=== PATIENT | male | born 1940 | race Caucasian/White ===

== ENCOUNTER → 2018-03-11 | Outpatient (CLI) | payer MEDICARE ==
[2018-03-11 11:09] LABS: HCT 53.6 % (39.0-53.0); HGB 17.2 gm/dL (13.0-17.5); MCH 29.9 pg (25.0-35.0); MCHC 32.1 g/dL (31.0-37.0); MCV 92.9 fL (80.0-100.0); Mean Platelet Volume 6.6; Platelet Count 205 k/uL (150-450); RBC 5.77 m/uL (4.30-5.90); WBC 5.9 k/uL (3.8-10.6)
[2018-03-11 16:28] LABS: Albumin 4.3 g/dL (3.80-4.90); Albumin/Globulin Ratio 1.79 (1.20-2.10); Anion Gap 8.5 mmol/L (4.00-12.00); Calcium 9.1 mg/dL (8.7-10.3); Carbon Dioxide 27.5 mmol/L (21.6-31.8); Globulin 2.4 g/dL (1.6-3.3); Potassium 4.6 mmol/L (3.5-5.5); Total Bilirubin 1.1 mg/dL (0.2-1.2); Total Protein 6.7 g/dL (6.2-8.2)
== END | disposition home or self-care (01) ==
LOC: LABWHC1 10:12
PROVIDERS: ATTEND Internal Medicine Clinical Cardiac Electrophysiology
DX: I10 Essential (primary) hypertension (principal); I44.7 Left bundle-branch block, unspecified; R00.1 Bradycardia, unspecified; R53.83 Other fatigue
CPT/HCPCS: 36415; 80053; 80061; 84443; 85027

== ENCOUNTER 2018-06-23 08:26 | Day surgery (SDC) | payer MEDICARE ==
[2018-06-20 11:32] VITALS: BMI 25.0
[~2018-06-23 08:26] MED LIST: SODIUM CHLORIDE 0.9% 1,000 ML IV SCH; ceFAZolin IN SWFI 2 GM/20 ML SYRINGE IVP ONE
[2018-06-23 09:32] VITALS: BP 159/82; PULSE 47; RESP 20; TEMP 98
[2018-06-23] MEDS ORDERED: LIDOCAINE 1% INJ 10MG/ML (20 ML MDV) ONE (09:48)
[2018-06-23] MEDS ORDERED: IV FLUID CONTINUATION 400 ML IV ONE (09:50)
[2018-06-23] MEDS ORDERED: LIDOCAINE 1% INJ 10MG/ML (20 ML MDV) SQ ONE (10:03)
--- NOTE | 2018-06-23 10:28 | P.PCN ---
Preoperative Diagnosis: Loop monitor implant Primary physicians: Dr. Byrnes Pie Maker Machine: Dr. Hammer Indication: Palpitations, Sick Sinus Syndrome Patient was brought to the EP lab in a fasting state. Written informed consent was obtained prior to the procedure. The left pectoral area was prepped and draped per protocol. Intravenous antibiotic was administered preoperatively. A subcutaneous Loop monitor was implanted successfully and the wound was closed per protocol. The device was programmed to detect significant olga- arrhythmic and tachy-arrhythmic events, per protocol. Device and programming details: A. fib protocol Patient underwent EP procedure under conscious sedation/moderate sedation, monitoring of the level of consciousness and physiologic parameters including but not limited to vital signs and oxygenation. Patient tolerated the procedure well without any acute complications. Start time: 1001 Stop time: 1011
--- NOTE | 2018-06-23 10:29 | P.PRLE ---
RE: [place] Mike Dear Yared Mr. Mike underwent implantation of loop monitor for evaluation of underlying sick sinus syndrome as well as history of palpitations. If he has any tachycardia or bradycardia arrhythmias I will forward that information to you in the future Thank you for entrusting me with the care of the patient Warm regards Sincerely José Luis Manuel
== END 2018-06-23 11:00 | disposition home or self-care (01) ==
LOC: CATHEP 08:26
PROVIDERS: ATTEND Internal Medicine Clinical Cardiac Electrophysiology
DX: I49.5 Sick sinus syndrome (principal); I44.7 Left bundle-branch block, unspecified; I10 Essential (primary) hypertension; I47.1 Supraventricular tachycardia; Z82.49 Family history of ischemic heart disease and other diseases of the circulatory system; Z79.82 Long term (current) use of aspirin; Z79.899 Other long term (current) drug therapy
CPT/HCPCS: 33285; C1764; J2001; J0690

== ENCOUNTER → 2018-10-26 | Outpatient (CLI) | payer MEDICARE ==
[2018-10-26 17:00] LABS: Chol/HDL Ratio 3.09; LDL Cholesterol,Calculated 79.6 mg/dL (0.0-131.0); VLDL Calculation 16.4 mg/dL (5.00-40.00)
== END | disposition home or self-care (01) ==
LOC: LABWHC1 10:05
PROVIDERS: ATTEND Nurse Practitioner Adult Health
DX: E78.5 Hyperlipidemia, unspecified (principal)
CPT/HCPCS: 36415; 80061

== ENCOUNTER → 2018-12-15 | Outpatient (CLI) | payer MEDICARE ==
[2018-12-15 20:26] LABS: Protein, Total 6.5 g/dL (6.2-8.2)
[2018-12-15 20:44] LABS: C Reactive Protein <0.4 mg/dL (0.0-0.8); Creatine Kinase 82 U/L (35-257)
[2018-12-15 23:04] LABS: Hemoglobin A1C 5.8 % (4.0-6.0)
[2018-12-16 15:26] LABS: Albumin 3.93 g/dL (3.80-4.90); Gamma Globulin 0.88 g/dL (0.70-1.50)
== END | disposition home or self-care (01) ==
LOC: LABWHC1 09:37
PROVIDERS: ATTEND Psychiatry & Neurology Neurology
DX: G62.9 Polyneuropathy, unspecified (principal); R53.1 Weakness
CPT/HCPCS: 36415; 82550; 82607; 82747; 83036; 84165; 84439; 84443; 85652; 86140; 86618

== ENCOUNTER → 2019-01-13 | Outpatient (CLI) | payer MEDICARE ==
--- NOTE | 2019-01-13 10:43 | XR ---
EXAMINATION TYPE: XR tibia fibula RT DATE OF EXAM: 01/13/2019 CLINICAL HISTORY: pain TECHNIQUE: AP and lateral images of the right tibia and fibula are obtained. COMPARISON: None. FINDINGS: There is no acute fracture/dislocation evident. The joint spaces appear within normal rivas its. The overlying soft tissue appears unremarkable. IMPRESSION: There is no acute fracture or dislocation seen. ICD 10 NO FRACTURE, INITIAL EVALUATION
== END | disposition home or self-care (01) ==
LOC: RADXRMAIN 10:14
PROVIDERS: ATTEND Family Medicine
DX: M17.0 Bilateral primary osteoarthritis of knee (principal)

== ENCOUNTER → 2019-02-14 | Outpatient (CLI) | payer MEDICARE | END | disposition home or self-care (01) | LOC: LABWHC1 10:33 | PROVIDERS: ATTEND Psychiatry & Neurology Neurology | DX: G73.3 Myasthenic syndromes in other diseases classified elsewhere (principal); G60.9 Hereditary and idiopathic neuropathy, unspecified; K74.3 Primary biliary cirrhosis | CPT/HCPCS: 36415; 83516; 83519; 84182 ==

== ENCOUNTER → 2019-02-28 | Outpatient (CLI) | payer MEDICARE ==
--- NOTE | 2019-03-01 05:28 | CT ---
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 Coronal/sagittal reconstructions performed. CT DLP: 366.4mGycm. Automatic exposure control utilized for a dose reduction. FINDINGS: Heart normal size without pericardial effusion. Mild coronary artery calcifications are seen. Borderline ectatic ascending aorta 3.6 cm. Conventional arch vessel branching anatomy. Ectatic upper descending thoracic aorta at 3.5 cm. A tiny 5 mm contrast outpouching left laterally from the distal aortic arch, refer to axial image 20, suspected focal plaque ulceration. Mild bilateral gynecomastia. No thoracic lymphadenopathy by CT size criteria. No anterior mediastinal mass or evidence for thymoma. Right apical pleural-parenchymal scarring. Calcified granuloma subpleural region anterior right midlu ng. Prominent dependent atelectasis. No consolidation or pleural effusion. Visualized upper abdomen shows bilateral renal cysts measuring 1.7 cm on the right and 3.0 cm on the left. Bones: Mild to moderate degenerative disc disease throughout with small endplate Schmorl's nodes lowe r thoracic spine. IMPRESSION: 1. No anterior mediastinal mass, thoracic lymphadenopathy, or specific CT findings of thymoma. 2. Ectatic upper descending thoracic aorta at 3.5 cm. There is a tiny 5 mm contrast outpouching left laterally from the distal aortic arch (axial image 20) likely representing an area of focal plaque ul ceration. A tiny early penetrating atherosclerotic ulcer is less likely. Correlate with patient's sym ptoms and follow-up as indicated. 3. Some dependent atelectasis in the lungs. No acute pulmonary process.
== END | disposition home or self-care (01) ==
LOC: RADCTMAIN 16:27
PROVIDERS: ATTEND Psychiatry & Neurology Neurology
DX: J98.11 Atelectasis (principal); I77.810 Thoracic aortic ectasia; Q25.49 Other congenital malformations of aorta; G73.3 Myasthenic syndromes in other diseases classified elsewhere
CPT/HCPCS: 82565; 84520; 71260; 36415; Q9967

== ENCOUNTER 2019-05-03 13:52 | Emergency (ER) | payer MEDICARE ==
--- NOTE | 2019-05-03 14:43 | ED ---
Male Urogenital HPI - General Chief complaint: Urogenital Stated complaint: Blood in urine Time Seen by Provider: 05/03/19 14:16 Source: patient Mode of arrival: ambulatory Limitations: no limitations - History of Present Illness Initial comments: Patient is a 78-year-old male presenting to the emergency Department with complaints of hematuria times today. Patient states he noticed he was urinating more frequently last night and then this morning noticed blood in his urine. Patient states the next time he went to use the restroom he noticed a small amount of blood in his underwear as well. Patient denies any rectal bleeding. Patient does admit to being on Xarelto for A. fib. He denies any fever, chills, abdominal pain. He denies any recent changes in medication. He denies history of UTIs. He has denies kidney disease. He has no other complaints at this time. Upon arrival to the ER, patient's BP is slightly elevated at 179/79, rest of vitals normal. - Related Data Home Medications Medication Instructions Recorded Confirmed Gabapentin [Neurontin] 300 mg PO TID 06/20/18 06/20/18 Rosuvastatin [Crestor] 5 mg PO QAM 06/20/18 06/20/18 amLODIPine [Norvasc] 5 mg PO Q48H 06/20/18 06/20/18 Allergies Allergy/AdvReac Type Severity Reaction Status Date / Time No Known Allergies Allergy Verified 06/20/18 11:14 Review of Systems ROS Statement: Those systems with pertinent positive or pertinent negative responses have been documented in the HPI. ROS Other: All systems not noted in ROS Statement are negative. Past Medical History Past Medical History: Atrial Fibrillation, Neurologic Disorder Additional Past Medical History / Comment(s): arthritic spinal ds, See Dr Manuel's H&P, SOB History of Any Multi-Drug Resistant Organisms: None Reported Past Surgical History: Hernia Repair Additional Past Surgical History / Comment(s): double inguinal hernia repair Past Anesthesia/Blood Transfusion Reactions: No Reported Reaction Past Psychological History: No Psychological Hx Reported Smoking Status: Never smoker Past Alcohol Use History: None Reported Past Drug Use History: None Reported - Past Family History Mother Family Medical History: Myocardial Infarction ([place]) Father Family Medical History: Myocardial Infarction ([place]) General Exam - General Exam Comments Initial Comments: GENERAL: Well-appearing, well-nourished and in no acute distress. HEAD: Atraumatic, normocephalic. EYES: Pupils equal round and reactive to light, extraocular movements intact, sclera anicteric, conjunctiva are normal. ENT: TMs normal, nares patent, oropharynx clear without exudates. Moist mucous membranes. NECK: Normal range of motion, supple without lymphadenopathy or JVD. LUNGS: Breath sounds clear to auscultation bilaterally and equal. No wheezes rales or rhonchi. HEART: Regular rate and rhythm without murmurs, rubs or gallops. ABDOMEN: Soft, nontender, normoactive bowel sounds. No guarding, no rebound. No masses appreciated. : Deferred EXTREMITIES: Normal range of motion, no pitting or edema. No clubbing or cyanosis. NEUROLOGICAL: Normal speech, normal gait. PSYCH: Normal mood, normal affect. SKIN: Warm, Dry, normal turgor, no rashes or lesions noted. Limitations: no limitations Course Vital Signs 05/03/19 05/03/19 13:58 15:30 Temperature 97.8 F 97.9 F Pulse Rate 67 70 Respiratory 19 18 Rate Blood Pressure 179/79 158/84 O2 Sat by Pulse 96 100 Oximetry Medical Decision Making - Medical Decision Making Patient is a 78-year-old male here for hematuria since this morning. He's also having urinary frequency. He is afebrile, no abdominal pain, no rectal bleeding. Urine today does show a large amount of blood, no signs of infection. I discussed with patient and he needs to follow up with urologist. Patient states he RBCs Dr. Snow or assess urologist and prefers to follow-up with him. They will call later on today. He is stable for discharge at this time. Return parameters were discussed with the patient and he verbalized understanding. Patient is in agreement with this plan of care. Case discussed with Dr. Weir. - Lab Data Lab Results 05/03/19 Range/Units 14:30 Urine Color Light Red Urine Appearance Clear (Clear) Urine pH 6.5 (5.0-8.0) Ur Specific [place] 1.016 (1.001-1.035) Urine Protein Trace H (Negative) Urine Glucose (UA) Negative (Negative) Urine Ketones Negative (Negative) Urine Blood Large H (Negative) Urine Nitrite Negative (Negative) Urine Bilirubin Negative (Negative) Urine Urobilinogen <2.0 (<2.0) mg/dL Ur Leukocyte Esterase Small H (Negative) Urine RBC >182 H (0-5) /hpf Urine WBC 5 (0-5) /hpf Urine Mucus Rare H (None) /hpf Disposition Clinical Impression: Hematuria, Urinary frequency Disposition: HOME SELF-CARE Condition: Stable Instructions (If sedation given, give patient instructions): Hematuria (ED) Additional Instructions: Please return to the Emergency Department if symptoms worsen or any other concerns. Follow-up with your urologist as discussed, Dr. Holloway. Please call the office today and schedule an appointment for 1-3 days. Is patient prescribed a controlled substance at d/c from ED?: No Referrals: Yared Byrnes MD [Primary Care Provider] - 1-2 days Juan Jose Holloway MD [STAFF PHYSICIAN] - 1-2 days
[2019-05-03 15:07] LABS: Appearance,Urine Clear (Clear); Bilirubin,Urine Negative (Negative); Blood,Urine Large (Negative); Color,Urine Light Red; Glucose,Urine (UA) Negative (Negative); Ketones,Urine Negative (Negative); Leukocyte Esterase,Urine Small (Negative); Mucus,Urine Rare /hpf; Nitrite,Urine Negative (Negative); PH, Urine 6.5 (5.0-8.0); Protein,Urine Trace (Negative); RBC,Urine >182 /hpf (0-5); Specific Gravity,Urine 1.016 (1.001-1.035); Urobilinogen,Urine <2.0 mg/dL (<2.0); WBC,Urine 5 /hpf (0-5)
[2019-05-03 15:31] VITALS: BP 158/84; PULSE 70; RESP 18; TEMP 97.9
== END 2019-05-03 15:30 | disposition home or self-care (01) ==
LOC: EC 13:52
DX: R31.9 Hematuria, unspecified (principal); R35.0 Frequency of micturition; I48.91 Unspecified atrial fibrillation; Z79.01 Long term (current) use of anticoagulants; Z79.899 Other long term (current) drug therapy
CPT/HCPCS: 81001; 99283

== ENCOUNTER → 2019-05-12 | Outpatient (CLI) | payer MEDICARE ==
--- NOTE | 2019-05-12 14:07 | CT ---
EXAMINATION TYPE: CT abdomen pelvis w con DATE OF EXAM: 05/12/2019 COMPARISON: Renal ultrasound May 09, 2013. MRI lumbar spine March 24, 2017. HISTORY: Gross hematuria. CT DLP: 881.4 mGycm, Automated Exposure Control for Dose Reduction was Utilized. CONTRAST: CT scan of the abdomen and pelvis is performed with oral and with IV Contrast, patient injected with 100 mL of Isovue 300. FINDINGS: LUNG BASES: No significant abnormality is appreciated. LIVER/GB: No significant abnormality is appreciated. PANCREAS: Fairly moderate generalized fat replaced atrophy. SPLEEN: No significant abnormality is seen. ADRENALS: No significant abnormality is seen. KIDNEYS: A few simple-appearing thin-walled cysts scattered throughout both kidneys are redemonstrate d. For reference 3.2 x 2.7 cm thin-walled cyst posteriorly upper to mid pole level left kidney series 7 image 30. There is symmetric cortical medullary uptake and excretion from both kidneys without hyd ronephrosis or renal calculus clearly seen. No intraluminal calculus or suspicious focal mass in the bladder. Mild to borderline moderate concentric wall thickening is nonspecific. BOWEL: Oral contrast reaches level of the mid transverse colon making evaluation of distal colon slig htly suboptimal. No suspicious small or large bowel dilatation. Mild wall thickening near junction of the left and sigmoid colon is nonspecific presumed product of poor distention, mild colitis cannot b e excluded in the appropriate clinical setting. PROSTATE/SEMINAL VESICLES: Markedly enlarged prostate gland consistent with BPH bulging on bladder ba se is redemonstrated. Scattered pelvic phleboliths. LYMPH NODES: No greater than 1cm abdominal or pelvic lymph nodes are appreciated. OSSEOUS STRUCTURES: Moderate to severe disc space narrowing L4-L5 level. Posterior spur disc L2-L3 le jacqueline. OTHER: No significant additional abnormality is seen. IMPRESSION: No renal stones or obvious concerning focal mass to account for symptoms of hematuria. M ild to borderline moderate fairly concentric wall thickening in the bladder presumed product of outle t obstruction related to BPH but may consider cystoscopy to further evaluate based on patient's sympt oms of gross hematuria.
== END | disposition home or self-care (01) ==
LOC: RADCTMAIN 11:31
PROVIDERS: ATTEND Urology
DX: R31.0 Gross hematuria (principal)
CPT/HCPCS: 82565; 84520; 74177; 36415; Q9967

== ENCOUNTER → 2019-10-05 | Outpatient (CLI) | payer MEDICARE ==
--- NOTE | 2019-10-05 16:19 | CONS ---
CONSULTATION DATE OF SERVICE: 10/05/2019 An 79-year-old gentleman who has been evaluated in the Sleep Center for possible obstructive sleep apnea-hypopnea syndrome. HISTORY OF PRESENT ILLNESS/SLEEP WAKE EVALUATION: Patient usual sleep schedule from 11 p.m. to 8 a.m. No problems with falling asleep, although he has TV set in bedroom. According to patient's , he snores and he wakes up from sleep up to 6 times with multiple episodes of nocturia at night. Positive history of palpitations. In the morning, patient wakes up tired, has problems with memory, irritability, may take nap 1 afternoon, usually feel refreshed after nap. Does not seem to be with dreams during nap. No history of hypnagogic hallucinations, sleep paralysis or cataplexy. [place] Sleepiness Scale is 5. PAST MEDICAL HISTORY: Positive for episodes of atrial fibrillation, hypertension, hyperlipidemia, peripheral neuropathy. PAST SURGICAL HISTORY: Hernia repair. MEDICATIONS: Gabapentin, amlodipine, Rosuvastatin, Xarelto, carbidopa - levodopa. SOCIAL HISTORY: Negative for smoking or using alcohol. FAMILY HISTORY: Positive for diabetes, during the sleep, heart problems, arthritis. REVIEW OF SYSTEMS: Multiple awakenings from sleep, episodes of cardiac arrhythmia. PHYSICAL EXAM: gentleman without distress, BP 169/71, HR 60, RR 14, height 5, 10-3/4 inches, weight 185.6 pounds and body mass index 26.0, temperature 98.2, oxygen saturation from 98%. OROPHARYNX: Extremely low position of soft palate. Mallampati IV. NECK: 16 inches in circumference. LUNGS: Clear to percussion and to auscultation. Good air exchange. No wheezing or rhonchi. HEART: S1, S2 regular. No murmurs, gallops, or rubs. ABDOMEN: Soft and nontender. Bowel sounds are present. No organomegaly appreciated. EXTREMITIES: No clubbing or cyanosis. SOLID WASTE LANDFILL TECHNICIAN: Awake, alert, and oriented X3. Cranial nerves 2 to 7 intact. There is no fasciculation or atrophy. noted. No focal deficits observed. IMPRESSION: 1. Snoring, multiple awakenings from sleep with nocturia, extremely low position of soft palate, obstructive sleep apnea-hypopnea syndrome. 2. History of episodes of atrial fibrillation. 3. Hypertension. 4. Hyperlipidemia. 5. History of peripheral neuropathy. 6. Status post tonsillectomy. 7. Status post hernia repair. PLAN: 1. Polysomnography for evaluation of patient's breathing during sleep. 2. CPAP/BiPAP titration if sleep study confirms obstructive sleep apnea-hypopnea syndrome. 3. Preferable position during sleep on the side. 4. No driving if patient feels any sleepiness. 5. I will see patient for follow up visit to explain results of testing and following plan. Thank you very much for referring this patient for consultation. Sincerely, Diomedes Carrasco MD, PhD, FAASM Diplomat of [employer] [employer] [employer] Family Lawyer [facility] [place] MMODL / IJN: [id number] /
== END | disposition home or self-care (01) ==
LOC: SLEEP 15:12
PROVIDERS: ATTEND Internal Medicine
DX: G47.33 Obstructive sleep apnea (adult) (pediatric) (principal); I10 Essential (primary) hypertension; E78.5 Hyperlipidemia, unspecified; Z98.890 Other specified postprocedural states; Z86.79 Personal history of other diseases of the circulatory system
CPT/HCPCS: 99211

== ENCOUNTER → 2019-10-26 | Outpatient (CLI) | payer MEDICARE ==
[2019-10-26 16:40] LABS: African American GFR (CKD) 73.1 (60.0-200.0); BUN/Creat Ratio 14.55 Ratio (12.00-20.00); Calcium 9.3 mg/dL (8.7-10.3); Non-African American GFR(CKD) 63.1 (60.0-200.0); Potassium 4.3 mmol/L (3.5-5.5)
== END | disposition home or self-care (01) ==
LOC: LABWHC1 10:18
PROVIDERS: ATTEND Physician Assistant
DX: I10 Essential (primary) hypertension (principal); R00.1 Bradycardia, unspecified
CPT/HCPCS: 36415; 80048; 84443

== ENCOUNTER → 2020-02-21 | Outpatient (CLI) | payer MEDICARE ==
--- NOTE | 2020-02-21 12:03 | SFUN ---
SLEEP CENTER FOLLOW UP NOTE DATE OF SERVICE: 02/21/2020 This 79-year-old gentleman has been followed in Sleep Center for checking his compliance and clinical response on treatment with CPAP. Recently, patient had polysomnogram and CPAP titration. Polysomnogram showed moderate obstructive sleep apnea-hypopnea syndrome. During titration, respiration normalized. Subsequently, he received his CPAP unit. This is his first visit after he started to use CPAP equipment. The patient is able to use CPAP equipment practically every night, feels better with the machine. Sometimes feel leak from the upper part of the full face Simplus mask in the area of the nose bridge. [place] Sleepiness Scale today is 5. MEDICATIONS: Gabapentin, amlodipine, rosuvastatin, carbidopa levodopa. I checked patient's CPAP unit. CPAP pressure in the range of 5-15, average pressure 8.5, usage 26 out of 30 nights and 23 out of 30 nights for more than 4 hours, average 7.1 hours per night. Leak is 41 L/minute. Apnea-hypopnea index 5.4. PHYSICAL EXAMINATION: GENERAL: Patient in no distress. VITAL SIGNS: BP 153/62, HR 52, RR 16, weight 194, temperature 97.9, oxygen saturation at room air 97% HEENT: PERRLA, EOMI, evaluation of oropharynx showed tongue protrudes midline. NECK: Supple, no JVD. Thyroid is not palpable. LUNGS: Clear to percussion and to auscultation. Good air exchange. No wheezing or rhonchi. HEART: S1, S2, bradycardia. ABDOMEN: Soft and nontender. Bowel sounds are present. No organomegaly appreciated. EXTREMITIES: No clubbing or cyanosis. WEED COOKING OPERATOR: Awake, alert, and oriented X3. Cranial nerves 2 to 7 intact. There is no fasciculation or atrophy. noted. No focal deficits observed. IMPRESSION: 1. Obstructive sleep apnea-hypopnea syndrome in moderate range. Original apnea- hypopnea index 16.7. The patient demonstrated good compliance with treatment, benefitting from treatment. 2. Significant leak from the mask. The patient sometimes feels discomfort related to the leak from the upper area in the bridge of the nose. 3. Hypertension. 4. Hyperlipidemia. 5. History of atrial fibrillation. 6. History of peripheral neuropathy. 7. Status post tonsillectomy. 8. Status post hernia repair. PLAN: 1. Prescription for different style of full face mask, which included nasal pillow part and part which cover the nose. 2. Patient will continue to use PAP equipment every night for the whole night. 3. Sleep hygiene with regular time in bed for at least 7-1/2 to 8 hours. 4. Precautions related to driving. No driving if feeling sleepiness. 5. I will maintain all necessary prescription for PAP supplies including mask, tube, filters. 6. Watching weight. 7. No driving if feeling sleepiness. 8. Follow-up visit in 6 months or earlier if patient has any problems. Thank you very much for allowing me to participate in management of your patient. Sincerely, Diomedes Carrasco MD, PhD, FAASM Diplomat of [employer] Senior Information Security Analyst of [facility] [place] MMODL / CALLY: [id number] /
== END | disposition home or self-care (01) ==
LOC: SLEEP 09:54
PROVIDERS: ATTEND Internal Medicine
DX: G47.33 Obstructive sleep apnea (adult) (pediatric) (principal); I10 Essential (primary) hypertension; E78.5 Hyperlipidemia, unspecified; Z99.89 Dependence on other enabling machines and devices; Z86.79 Personal history of other diseases of the circulatory system; Z86.69 Personal history of other diseases of the nervous system and sense organs; Z90.89 Acquired absence of other organs; Z98.890 Other specified postprocedural states; Z79.899 Other long term (current) drug therapy

== ENCOUNTER → 2020-09-05 | Outpatient (CLI) | payer MEDICARE | END | disposition home or self-care (01) | LOC: LABWHC1 10:40 | PROVIDERS: ATTEND Internal Medicine Clinical Cardiac Electrophysiology | DX: I49.5 Sick sinus syndrome (principal) | CPT/HCPCS: 36415; 84443 ==

== ENCOUNTER → 2020-10-24 | Outpatient (CLI) | payer MEDICARE ==
--- NOTE | 2020-10-24 14:19 | CT ---
EXAMINATION TYPE: CT chest wo con DATE OF EXAM: 10/24/2020 COMPARISON: Chest CT February 28, 2019 HISTORY: Dyspnea. CT DLP: 339.1 mGycm. Automated Exposure Control for Dose Reduction was Utilized. TECHNIQUE: CT scan of the thorax is performed without IV contrast. FINDINGS: LUNGS: Stable mild right greater than left biapical pleural/parenchymal scarring. Persistent 4 mm doron cified subpleural nodule or granuloma anterior right midlung axial image 32. Slightly elevated left hemidiaphragm redemonstrated persistent mild left basilar linear scarring and/or atelectasis. No new focal infiltrates. There is no pleural effusion or pneumothorax seen bilaterally. The tracheobronchi al tree is patent. MEDIASTINUM: Lack of IV contrast is noted to limit evaluation for mediastinal and especially hilar ad enopathy. There are no definitive new greater than 1 cm mediastinal lymph nodes. No cardiomegaly or pericardial effusion is seen. Coronary artery calcification redemonstrated. Overlying anterior chest wall are again seen. OTHER: Small degree of subareolar bilateral gynecomastia again seen. Multilevel spurring in the spine with underlying scoliotic curvature. Partial visualization of thin-walled cyst posteriorly upper kvng e left kidney on current study. IMPRESSION: Mild chronic changes without new acute pulmonary process.
== END | disposition home or self-care (01) ==
LOC: RADCTMAIN 13:55
PROVIDERS: ATTEND Internal Medicine Pulmonary Disease
DX: R06.00 Dyspnea, unspecified (principal)
CPT/HCPCS: 71250

== ENCOUNTER 2021-03-07 10:09 | Inpatient (IN) | payer MEDICARE ==
[2021-02-27 09:54] VITALS: BMI 24.7
--- NOTE | 2021-03-03 09:09 | P.HPIHPCON ---
History of Present Illness H&P Date: 03/03/21 This is an 80-year-old male with a history of BPH. He has history of 106 g prostate. Discussed given the size of his prostate the recommended approach is either a HoLEP or Robotic simple prostatecomy. discussed the risk and benefit of each procedure in detail. He agreed to proceed with a robotic simple prostatectomy. Discussed with him the risk of surgery which includes but not limited to bleeding, infection, injury to nearby organs which includes but not limited to bowel, ureter, rectum, or blood vessels.. Discussed also with him risk from anesthesia which includes but not limited to heart attack, stroke, blood clots. Discussed with him also the risk of persistent retention even with simple prostatectomy. Discussed the risk of erectile dysfunction and urinary incontinence. He understood all the risk and agreed to proceed Consent for Procedure: I have explained the operation/procedure to the patient, including the risks, benefits, side effects, alternative therapies (including not receiving the proposed treatment or service), the likelihood of the patient achieving his/her goals, and potential recuperation problems for the procedure/sedation/analgesia, as well as any blood products, if indicated. I also explained to the patient the risks, benefits and side effects of the alternatives, as well as the risks related to not receiving the proposed procedure, care, treatment, or services. Past Medical History Past Medical History: Atrial Fibrillation, Hyperlipidemia, Hypertension, Neurologic Disorder, Prostate Disorder, Sleep Apnea/CPAP/BIPAP Additional Past Medical History / Comment(s): arthritic spinal disease, supposed to use CPAP, peripheral neuropathy, a-fib for @least 2-3 years, enlarged prostate History of Any Multi-Drug Resistant Organisms: None Reported Past Surgical History: Hernia Repair, Tonsillectomy Additional Past Surgical History / Comment(s): double inguinal hernia repair Past Anesthesia/Blood Transfusion Reactions: No Reported Reaction Smoking Status: Never smoker - Past Family History Mother Family Medical History: Myocardial Infarction ([place]) Father Family Medical History: Myocardial Infarction ([place]) Medications and Allergies Home Medications Medication Instructions Recorded Confirmed Type Gabapentin [Neurontin] 400 mg PO TID 06/20/18 02/27/21 History Rosuvastatin [Crestor] 5 mg PO QAM 06/20/18 02/27/21 History amLODIPine [Norvasc] 5 mg PO DAILY 06/20/18 02/27/21 History Carbidopa-Levodopa 25-100 mg 2 each PO BID 02/27/21 02/27/21 History [Sinemet 25-100] Docusate Sodium [Dok] 100 mg PO DAILY 02/27/21 02/27/21 History Rivaroxaban [Xarelto] 20 mg PO DAILY 02/27/21 02/27/21 History Allergies Allergy/AdvReac Type Severity Reaction Status Date / Time No Known Allergies Allergy Verified 02/27/21 09:54 Surgical - Exam - General no distress, no pain - ENT normal nares, normal mucosa - Respiratory normal expansion, normal respiratory effort - Abdomen Abdomen: soft, non tender - Psychiatric oriented to time, oriented to person, oriented to place Assessment and Plan Assessment: OR for robotic simple prostatectomy
[~2021-03-07 10:09] MED LIST changes: +HEPARIN SODIUM,PORCINE/PF 5,000 UNIT/0.5 ML SYRINGE SQ PRN; +HYDROmorphone 0.5 MG/0.5 ML SYRINGE IVP PRN; +MIDAZOLAM 2 MG/2 ML VIAL IV PRN; -SODIUM CHLORIDE 0.9% 1,000 ML IV SCH; -ceFAZolin IN SWFI 2 GM/20 ML SYRINGE IVP ONE
[2021-03-07] MEDS: LIDOCAINE 1% (10MG/ML) FOR IV START INTRADERMA PRN ×2 (10:36→11:15)
[2021-03-07] MEDS: LACTATED RINGERS 1,000 ML IV SCH ×3 (10:36→11:17)
[2021-03-07] MEDS: DEXAMETHASONE SOD PHOSPHATE 4 MG/ML 1 ML VIAL IV ONE ×2 (10:55→17:31)
[2021-03-07] MEDS: ONDANSETRON 4 MG/2 ML VIAL IVP ONE ×2 (10:55→17:31)
[2021-03-07] MEDS ORDERED: ROPIVACAINE 5 MG/ML 30 ML VIAL ONE (12:01)
[2021-03-07] MEDS ORDERED: SUCCINYLCHOLINE CHLORIDE 100 MG/5 ML SYR IV ONE (12:01)
[2021-03-07] MEDS ORDERED: SODIUM CHLORIDE 0.9% (PF) 10 ML VIAL ONE (12:01)
[2021-03-07] MEDS ORDERED: LIDOCAINE 1% INJ 10MG/ML (20 ML MDV) ONE (12:01)
[2021-03-07] MEDS ORDERED: PROPOFOL 10 MG/ML 20 ML VIAL IV ONE (12:01)
[2021-03-07] MEDS ORDERED: NEOSTIGMINE 1 MG/ML 10 ML VIAL ONE (12:01)
[2021-03-07] MEDS ORDERED: fentaNYL (PF) 50 MCG/ML 2 ML AMP ONE (12:01)
[2021-03-07] MEDS ORDERED: GLYCOPYRROLATE 0.2 MG/ML 2 ML VIAL ONE (12:01)
[2021-03-07] MEDS ORDERED: ROCURONIUM 10 MG/ML (5 ML VIAL) IV ONE ×2 (12:01)
[2021-03-07] MEDS ORDERED: MIDAZOLAM 2 MG/2 ML VIAL ONE (12:01)
[2021-03-07] MEDS ORDERED: BUPIVACAINE (PF) 0.75% 10 ML VIAL SQ ONE (12:50)
[2021-03-07] MEDS ORDERED: LACTATED RINGERS 1,000 ML IV ONE (15:25)
--- NOTE | 2021-03-07 15:50 | P.OP ---
Date of Procedure: 03/07/21 Preoperative Diagnosis: BPH w/Obstruction Postoperative Diagnosis: same Procedure(s) Performed: Robotic simple prostatectomy Implants: none Anesthesia: DESTINY Surgeon: Stone Olivera Fleece Tier #1: Jerman Garg Pathology: other (prostate adenoma) Condition: stable Disposition: PACU Indications for Procedure: This is an 80-year-old male with a history of BPH. He has history of 106 g prostate. Discussed given the size of his prostate the recommended approach is either a HoLEP or Robotic simple prostatecomy. discussed the risk and benefit of each procedure in detail. He agreed to proceed with a robotic simple prostatectomy. Discussed with him the risk of surgery which includes but not limited to bleeding, infection, injury to nearby organs which includes but not limited to bowel, ureter, rectum, or blood vessels.. Discussed also with him risk from anesthesia which includes but not limited to heart attack, stroke, blood clots. Discussed with him also the risk of persistent retention even with simple prostatectomy. Discussed the risk of erectile dysfunction and urinary incontinence. He understood all the risk and agreed to proceed Description of Procedure: After preoperative antibiotics were started, the patient was taken to the operating room. Anesthesia was induced and the patient was placed in a supine position with adequate padding of the pressure points, shoulders, back, legs and arms. He was then prepped and draped in the standard fashion. A critical pause was performed using two patient identifiers. A 16F holt catheter was placed to gravity drainage. A pneumoperitoneum was obtained using a Veress needle, after pneumoperitoneum was obtained a 8 mm camera port was placed. Under direct vision a 8mm robotic ports was placed lateral to each rectus slightly below the camera port. The left iliac fossa 8mm port was placed. The right tourist information assistant right iliac fossa 12mm port and right paramedian 5mm portwere placed. Adhesions were taken along the right and left lower quadrant After the patient was placed in the trendelenberg position, the robot was then docked to the 8mm robotic ports and then each robotic arm and tower was checked in relation to the patient's legs and hands to avoid inadvertent compression. The peritoneal cavity was inspected. Adhesions were taken down along the left lower quadrant An inverted U-shaped incision began laterally to the left medial umbilical ligament and extended high across the midline to the right umbilical ligament. The limbs of the "U" extended to the level of the vasa on both sides. We next developed the preperitoneal space and the space of Retzius. of Cautery was used to dissected the bladder away from the prostate, the incision was made in close proximity to the prostate, and incision was extended laterally and at this point the plane between the adenoma and the surgical capsule is identified. Both ureteral orifices were identified and neither was injured during the dissection . The adenoma was dissected off of the capsule by combination of blunt dissection and minimum cautery. dissection was initially started along the anterior surface and posterior surface of adenoma, and this was carried laterally. Of note the posterior portion of the adenoma was fairly adherent to the capsule. The dissection was carried to the apex, at this point the urethral-prostatic junction was visualized and the prostate was transected at the junction. Prostate adenoma was placed in an endocatch bag . A 9and 9 inch 3-0 V-Lock suture was used to anastomose the urethra and bladder, starting at the 6:00 posterior position. Mucosa was secured in every stitch, to ensure a mucosa to mucosa anastomosis. The stitch was regularly cinched and the anastomosis tightened. . The 20 Fr Holt catheter was advanced, the bladder filled, and the anastomosis was tested. Anastomsis was watertight at 150 mL. balloon was inflated to 10 mL. Hemostatic agents were placed at the apical portion of the prostate The robot was undocked. specimen was extracted from the supraumbilical incision. The periumbilical fascia was closed with 1-0-PDS suture in figure of 8 fashion. All ports were closed with a subcuticular 4-0 monocryl and Dermabond. Sponge, instrument, and needle counts were correct at the end of the case x2. The patient tolerated the surgery well and without complication. He awoke without difficulty and was taken to the recovery room in stable condition
[2021-03-07] MEDS: GABAPENTIN 400 MG CAP PO SCH ×2 (17:32→20:47)
[2021-03-07] MEDS: KETOROLAC 30 MG/ML 1 ML VIAL IVP SCH ×2 (17:32→23:59)
[2021-03-07] MEDS: D5-0.45% NACL WITH KCL 20MEQ/L 1,000 ML IV SCH (18:30)
[2021-03-07] MEDS: HEPARIN SODIUM,PORCINE/PF 5,000 UNIT/0.5 ML SYRINGE SQ SCH (20:00)
[2021-03-07] MEDS: HYDROcodone/APAP 5-325MG 1 EACH TAB PO PRN (20:47)
[2021-03-07] MEDS: CARBIDOPA-LEVODOPA 25-100 MG 1 EACH TAB PO SCH (20:47)
[2021-03-08] MEDS: D5-0.45% NACL WITH KCL 20MEQ/L 1,000 ML IV SCH ×3 (01:34→10:06)
[2021-03-08] MEDS: HYDROcodone/APAP 5-325MG 1 EACH TAB PO PRN ×2 (01:40→10:05)
[2021-03-08] MEDS: HEPARIN SODIUM,PORCINE/PF 5,000 UNIT/0.5 ML SYRINGE SQ SCH ×2 (04:06→11:41)
[2021-03-08] MEDS: KETOROLAC 30 MG/ML 1 ML VIAL IVP SCH ×2 (07:21→11:40)
[2021-03-08 08:02] VITALS: BP 131/66; PULSE 65; RESP 22; TEMP 98.6
[2021-03-08] MEDS ORDERED: amLODIPine 5 MG TAB PO SCH (09:00)
[2021-03-08] MEDS ORDERED: DOCUSATE 100 MG CAP PO SCH (09:00)
[2021-03-08] MEDS ORDERED: ATORVASTATIN 10 MG TAB PO SCH (09:00)
[2021-03-08] MEDS: CARBIDOPA-LEVODOPA 25-100 MG 1 EACH TAB PO SCH (09:13)
[2021-03-08] MEDS: GABAPENTIN 400 MG CAP PO SCH (09:13)
--- NOTE | 2021-03-08 11:06 | P.DS ---
Providers Date of admission: 03/07/21 10:09 Expected date of discharge: 03/08/21 Attending physician: Stone Olivera MD Primary care physician: Yared Byrnes [facility] Course: On the day of admission, the patient underwent an uncomplicated robotic-assisted laparoscopic simple prostatectomy. The perioperative course was uncomplicated. The patient remained afebrile with stable vital signs. On the first postoperative day, his only complaint was minimal incisional discomfort. He denied nausea, vomiting, chest pain, and shortness of breath. He tolerated breakfast. He ambulated twice without difficulty. On examination, the abdomen was soft and non-distended. Incisions were clean and dry. The Wade catheter was draining blood-tinged urine. Procedures: Robotic-assisted laparoscopic simple prostatectomy in 03/07/2021 Patient Condition at Discharge: Good Plan - Discharge Summary Discharge Rx Participant: No New Discharge Prescriptions: New Ciprofloxacin HCl [Cipro] 250 mg PO Q12HR #6 tablet Ketorolac [Toradol] 10 mg PO Q6HR PRN #12 tab PRN Reason: Pain No Action Gabapentin [Neurontin] 400 mg PO TID amLODIPine [Norvasc] 5 mg PO DAILY Rosuvastatin [Crestor] 5 mg PO QAM Carbidopa-Levodopa 25-100 mg [Sinemet 25-100] 2 each PO BID Rivaroxaban [Xarelto] 20 mg PO DAILY Docusate Sodium [Dok] 100 mg PO DAILY Discharge Medication List Gabapentin [Neurontin] 400 mg PO TID 06/20/18 [History] Rosuvastatin [Crestor] 5 mg PO QAM 06/20/18 [History] amLODIPine [Norvasc] 5 mg PO DAILY 06/20/18 [History] Carbidopa-Levodopa 25-100 mg [Sinemet 25-100] 2 each PO BID 02/27/21 [History] Docusate Sodium [Dok] 100 mg PO DAILY 02/27/21 [History] Rivaroxaban [Xarelto] 20 mg PO DAILY 02/27/21 [History] Ciprofloxacin HCl [Cipro] 250 mg PO Q12HR #6 tablet 03/08/21 [Rx] Ketorolac [Toradol] 10 mg PO Q6HR PRN #12 tab 03/08/21 [Rx] Follow up Appointment(s)/Referral(s): Stone Olivera MD [STAFF PHYSICIAN] - 03/17/21 Activity/Diet/Wound Care/Special Instructions: Discharge home with Wade catheter. Instruct patient to use overnight drainage bag as well as urinary leg bag. Okay to shower. Diet as tolerated. No lifting, driving, or strenuous activity. Reassure patient that abdominal wall ecchymosis and penoscrotal swelling are normal. Instruct patient to begin taking antibiotics one day prior to Wade catheter removal. May resume Xarelto in 3 days. Discharge Disposition: HOME SELF-CARE
--- NOTE | 2021-03-08 16:21 | P.ANPRN ---
Procedure Note - Anesthesia - Nerve Block Performed Bilateral Erector Spinae Single Time Out Performed: Yes Date of Procedure: 03/07/21 Procedure Start Time: 11:52 Procedure Stop Time: 11:59 Location of Patient: PreOp Indication: Acute Post-Operative Pain, Requested by Surgeon Sedation Type: Sedate with meaningful contact maintained Preparation: Sterile Prep Position: Supine Needle Types: Pajunk Needle Gauge: 21 Ultrasound used to visualize needle placement: Yes Ultrasound used to observe medication spread: Yes Blood Aspirated: No Pain Paresthesia on Injection Noted: No Resistance on Injection: Normal Image Stored and Saved: Yes Events: Uneventful and Well Tolerated (ropi .5% 15 cc plus normal saline 15cc)
--- NOTE | 2021-04-10 15:20 | CDI ---
Documentation Clarification Form Date: 04/10/2021 03:13:48 PM From: Steven Sotomayor Admit Date: 03/07/2021 10:09:00 AM Patient Name: Denton Mike Visit Number: [id number] Discharge Date: 03/08/2021 12:51:00 PM ATTENTION: The Clinical Documentation Specialists (CDI) and [facility] Coding Staff appreciate your assistance in clarifying documentation. Please respond to the clarification below the line at the bottom and electronically sign. The CDI & [facility] Coding staff will review the response and follow-up if needed. Please note: Queries are made part of the Legal Health Record. If you have any questions, please contact the author of this message via ITS. Dr. 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 Coding guidelines do not allow coding professionals to code based on pathology results; therefore, clarification is requested. History/risk factors: BPH Clinical Indicators: urinary retenton Treatment: Percutaneous laparoscopic excision of prostate Please clarify if you agree with the pathology report diagnosis of [insert result/diagnosis]: [ X] Yes [ ] No [ ] Other (please specify) [ ] Unable to determine MTDD
== END 2021-03-08 12:51 | disposition home or self-care (01) | DRG 716 ==
LOC: 2ORMAIN 10:09 → 4SSUR 16:06
PROVIDERS: ADMIT Urology; ATTEND Urology
PROC: 8E0W4CZ Robotic Assisted Procedure of Trunk Region, Percutaneous Endoscopic Approach (ICD-10-PCS; 2021-03-07)
PROC: 0VB04ZZ Excision of Prostate, Percutaneous Endoscopic Approach (ICD-10-PCS; principal; 2021-03-07 12:00)
DX: C61 Malignant neoplasm of prostate (principal); R31.0 Gross hematuria; Z20.822 Contact with and (suspected) exposure to COVID-19; I10 Essential (primary) hypertension; G47.30 Sleep apnea, unspecified; M17.0 Bilateral primary osteoarthritis of knee
CPT/HCPCS: 64999; 86850; 86900; 86901; 87635; 88307; 88344

== ENCOUNTER 2021-05-10 10:11 | Emergency (ER) | payer MEDICARE ==
--- NOTE | 2021-05-10 12:11 | ED ---
General Adult HPI - General Chief complaint: Urogenital Stated complaint: unable to urinate Time Seen by Provider: 05/10/21 11:47 Source: patient, RN notes reviewed, old records reviewed Mode of arrival: ambulatory Limitations: no limitations - History of Present Illness Initial comments: 80-year-old male 2 months status post laparoscopic prostatectomy presents for evaluation of inability to urinate and hematuria. He states that he saw his urologist yesterday. He has had some intermittent waning since his surgery but had been doing quite well. Yesterday evening he developed more significant hematuria but was still able to urinate. He discontinued his Xarelto which he takes for atrial fibrillation last night. 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 He does have some lower abdominal pain. No vomiting. - Related Data Home Medications Medication Instructions Recorded Confirmed Gabapentin [Neurontin] 400 mg PO TID 06/20/18 03/07/21 Rosuvastatin [Crestor] 5 mg PO QAM 06/20/18 03/07/21 amLODIPine [Norvasc] 5 mg PO DAILY 06/20/18 03/07/21 Carbidopa-Levodopa 25-100 mg 2 each PO BID 02/27/21 03/07/21 [Sinemet 25-100] Docusate Sodium [Dok] 100 mg PO DAILY 02/27/21 03/07/21 Rivaroxaban [Xarelto] 20 mg PO DAILY 02/27/21 03/07/21 Previous Rx's Medication Instructions Recorded Ciprofloxacin HCl [Cipro] 250 mg PO Q12HR #6 tablet 03/08/21 Ketorolac [Toradol] 10 mg PO Q6HR PRN #12 tab 03/08/21 Cephalexin [Keflex] 500 mg PO Q12HR 10 Days #20 cap 05/10/21 Allergies Allergy/AdvReac Type Severity Reaction Status Date / Time No Known Allergies Allergy Verified 05/10/21 10:20 Review of Systems ROS Statement: Those systems with pertinent positive or pertinent negative responses have been documented in the HPI. ROS Other: All systems not noted in ROS Statement are negative. Past Medical History Past Medical History: Atrial Fibrillation, Neurologic Disorder Additional Past Medical History / Comment(s): arthritic spinal ds, See Dr Manuel's H&P, SOB History of Any Multi-Drug Resistant Organisms: None Reported Past Surgical History: Hernia Repair, Prostate Surgery Additional Past Surgical History / Comment(s): double inguinal hernia repair Past Anesthesia/Blood Transfusion Reactions: No Reported Reaction Past Psychological History: No Psychological Hx Reported Smoking Status: Never smoker Past Alcohol Use History: None Reported Past Drug Use History: None Reported - Past Family History Mother Family Medical History: Myocardial Infarction ([place]) Father Family Medical History: Myocardial Infarction ([place]) General Exam Limitations: no limitations General appearance: alert, in no apparent distress Head exam: Present: atraumatic, normocephalic Eye exam: Present: normal appearance, PERRL ENT exam: Present: normal exam Neck exam: Present: normal inspection. Absent: tenderness, meningismus Respiratory exam: Present: normal lung sounds bilaterally. Absent: respiratory distress, wheezes Cardiovascular Exam: Present: regular rate, normal rhythm GI/Abdominal exam: Present: soft, tenderness (Mild suprapubic tenderness). Absent: distended exam: Present: other (Blood at the meatus) Neurological exam: Present: alert, oriented X3, CN II-XII intact. Absent: motor sensory deficit Psychiatric exam: Present: normal affect, normal mood Skin exam: Present: warm, dry, intact. Absent: cyanosis, diaphoretic Course Vital Signs 05/10/21 10:15 Temperature 97.1 F L Pulse Rate 65 Respiratory 18 Rate Blood Pressure 187/84 O2 Sat by Pulse 98 Oximetry Medical Decision Making - Medical Decision Making 80-year-old male presenting with hematuria and urinary retention. Wade catheter is placed without difficulty in the emergency department. Urine is initially body however this does clear while in the emergency department. Urinalysis showing significant amounts of blood which is expected. He has a mild leukocytosis, stable hemoglobin. Feels much better after Wade catheter is placed. He will be started on antibiotics while cultures are pending. He will follow-up with his urologist Dr. Ramon Alan. He lesly hold his Xarelto for 1 more day. - Lab Data Result diagrams: 05/10/21 12:49 05/10/21 12:49 Lab Results 05/10/21 05/10/21 05/10/21 Range/Units 12:08 12:49 12:49 WBC 13.0 H (3.8-10.6) k/uL RBC 4.27 L (4.30-5.90) m/uL Hgb 12.9 L (13.0-17.5) gm/dL Hct 40.3 (39.0-53.0) % MCV 94.2 (80.0-100.0) fL MCH 30.2 (25.0-35.0) pg MCHC 32.1 (31.0-37.0) g/dL RDW 12.6 (11.5-15.5) % Plt Count 307 (150-450) k/uL MPV 7.2 Neutrophils % 88 % Lymphocytes % 6 % Monocytes % 5 % Eosinophils % 1 % Basophils % 0 % Neutrophils # 11.4 H (1.3-7.7) k/uL Lymphocytes # 0.7 L (1.0-4.8) k/uL Monocytes # 0.7 (0-1.0) k/uL Eosinophils # 0.1 (0-0.7) k/uL Basophils # 0.0 (0-0.2) k/uL PT 11.2 (9.0-12.0) sec INR 1.0 (<1.2) APTT 28.0 (22.0-30.0) sec Sodium (137-145) mmol/L Potassium (3.5-5.1) mmol/L Chloride (98-107) mmol/L Carbon Dioxide (22-30) mmol/L Anion Gap mmol/L BUN (9-20) mg/dL Creatinine (0.66-1.25) mg/dL Est GFR (CKD-EPI)AfAm (>60 ml/min/1.73 sqM) Est GFR (CKD-EPI)NonAf (>60 ml/min/1.73 sqM) Glucose (74-99) mg/dL Calcium (8.4-10.2) mg/dL Total Bilirubin (0.2-1.3) mg/dL AST (17-59) U/L ALT (4-49) U/L Alkaline Phosphatase (38-126) U/L Total Protein (6.3-8.2) g/dL Albumin (3.5-5.0) g/dL Urine Color Red Urine Appearance Bloody (Clear) Urine RBC >182 H (0-5) /hpf Urine WBC >182 H (0-5) /hpf Urine WBC Clumps Many H (None) /hpf Urine Bacteria Many H (None) /hpf 05/10/21 Range/Units 12:49 WBC (3.8-10.6) k/uL RBC (4.30-5.90) m/uL Hgb (13.0-17.5) gm/dL Hct (39.0-53.0) % MCV (80.0-100.0) fL MCH (25.0-35.0) pg MCHC (31.0-37.0) g/dL RDW (11.5-15.5) % Plt Count (150-450) k/uL MPV Neutrophils % % Lymphocytes % % Monocytes % % Eosinophils % % Basophils % % Neutrophils # (1.3-7.7) k/uL Lymphocytes # (1.0-4.8) k/uL Monocytes # (0-1.0) k/uL Eosinophils # (0-0.7) k/uL Basophils # (0-0.2) k/uL PT (9.0-12.0) sec INR (<1.2) APTT (22.0-30.0) sec Sodium 131 L (137-145) mmol/L Potassium 4.5 (3.5-5.1) mmol/L Chloride 101 (98-107) mmol/L Carbon Dioxide 26 (22-30) mmol/L Anion Gap 4 mmol/L BUN 12 (9-20) mg/dL Creatinine 0.93 (0.66-1.25) mg/dL Est GFR (CKD-EPI)AfAm 89 (>60 ml/min/1.73 sqM) Est GFR (CKD-EPI)NonAf 77 (>60 ml/min/1.73 sqM) Glucose 100 H (74-99) mg/dL Calcium 8.6 (8.4-10.2) mg/dL Total Bilirubin 0.6 (0.2-1.3) mg/dL AST 16 L (17-59) U/L ALT <6 (4-49) U/L Alkaline Phosphatase 77 (38-126) U/L Total Protein 7.0 (6.3-8.2) g/dL Albumin 3.5 (3.5-5.0) g/dL Urine Color Urine Appearance (Clear) Urine RBC (0-5) /hpf Urine WBC (0-5) /hpf Urine WBC Clumps (None) /hpf Urine Bacteria (None) /hpf Disposition Clinical Impression: Acute retention of urine, Gross hematuria Disposition: HOME SELF-CARE Condition: Good Instructions (If sedation given, give patient instructions): Hematuria (ED), Urinary Retention in Men (ED) Prescriptions: Cephalexin [Keflex] 500 mg PO Q12HR 10 Days #20 cap Is patient prescribed a controlled substance at d/c from ED?: No Referrals: Yared Byrnes MD [Primary Care Provider] - 1-2 days Stone Olivera MD [STAFF PHYSICIAN] - 1-2 days Time of Disposition: 13:43
[2021-05-10] MEDS ORDERED: SODIUM CHLORIDE 0.9% 500 ML 500 ML IV ONE (12:27)
[2021-05-10 12:46] LABS: Appearance,Urine Bloody (Clear); Bacteria,Urine Many /hpf; Color,Urine Red; RBC,Urine >182 /hpf (0-5); WBC,Urine >182 /hpf (0-5)
[2021-05-10 12:57] LABS: Basophils % (A) 0 %; Eosinophils # (A) 0.1 k/uL (0-0.7); Eosinophils % (A) 1 %; HCT 40.3 % (39.0-53.0); HGB 12.9 gm/dL (13.0-17.5); Lymphocytes # (A) 0.7 k/uL (1.0-4.8); Lymphocytes % (A) 6 %; MCH 30.2 pg (25.0-35.0); MCHC 32.1 g/dL (31.0-37.0); MCV 94.2 fL (80.0-100.0); Mean Platelet Volume 7.2; Monocytes # (A) 0.7 k/uL (0-1.0); Monocytes % (A) 5 %; Neutrophils # (A) 11.4 k/uL (1.3-7.7); Neutrophils % (A) 88 %; Platelet Count 307 k/uL (150-450); RBC 4.27 m/uL (4.30-5.90); RDW 12.6 % (11.5-15.5)
[2021-05-10 13:07] LABS: Prothrombin Time 11.2 sec (9.0-12.0)
[2021-05-10 13:09] LABS: ALT <6 U/L (4-49); AST 16 U/L (17-59); African American GFR (CKD) 89 (>60 ml/min/1.73 sqM); Albumin 3.5 g/dL (3.5-5.0); Alkaline Phosphatase 77 U/L (38-126); Anion Gap 4 mmol/L; Blood Urea Nitrogen 12 mg/dL (9-20); Calcium 8.6 mg/dL (8.4-10.2); Carbon Dioxide 26 mmol/L (22-30); Chloride 101 mmol/L (98-107); Glucose 100 mg/dL (74-99); Non-African American GFR(CKD) 77 (>60 ml/min/1.73 sqM); Potassium 4.5 mmol/L (3.5-5.1); Sodium 131 mmol/L (137-145); Total Bilirubin 0.6 mg/dL (0.2-1.3)
[2021-05-10] MEDS ORDERED: cefTRIAXone IN SWFI 1,000 MG/10 ML SYRINGE IVP STA (13:21)
[2021-05-10 14:25] VITALS: BP 128/84; PULSE 78; RESP 16; TEMP 98
== END 2021-05-10 14:24 | disposition home or self-care (01) ==
LOC: EC 10:11
DX: R33.9 Retention of urine, unspecified (principal); R31.0 Gross hematuria; Z84.89 Family history of other specified conditions
CPT/HCPCS: 36415; 80053; 85025; 85610; 85730; 81001; 87086; 99283; 96374; 96361; J0696

== ENCOUNTER 2021-09-02 05:54 | Day surgery (SDC) | payer MEDICARE ==
[~2021-09-02 05:54] MED LIST changes: -HEPARIN SODIUM,PORCINE/PF 5,000 UNIT/0.5 ML SYRINGE SQ PRN; -HYDROmorphone 0.5 MG/0.5 ML SYRINGE IVP PRN; -MIDAZOLAM 2 MG/2 ML VIAL IV PRN; +SODIUM CHLORIDE 0.9% 1,000 ML IV SCH
[2021-09-02] MEDS ORDERED: SODIUM CHLORIDE 0.9% 500 ML 500 ML IV ONE (06:12)
[2021-09-02 06:27] VITALS: RESP 16; TEMP 97.6
[2021-09-02 06:42] LABS: Calcium 8.8 mg/dL (8.4-10.2); Potassium 4.3 mmol/L (3.5-5.1)
[2021-09-02] MEDS ORDERED: PROPOFOL 10 MG/ML 20 ML VIAL IV ONE (07:15)
--- NOTE | 2021-09-02 07:49 | P.HPCAR ---
History of Present Illness This is Dr. Manuel dictating an H/P on this patient The patient was interviewed and examined IMPRESSION / ASSESSMENT: Atrial tachycardia with RVR 140 beats a minute, symptomatic Increasing shortness of breath tiredness and fatigue underlying sick sinus syndrome and IVCD, hence AV natalie blocking drugs were avoided Hypertension Dyslipidemia PLAN: Electrical cardioversion today under conscious sedation Recommend diagnostic EP study and atrial flutter/atrial tachycardia ablation Dermatology opinion regarding the keloid. Consider biopsy before excision However explained to the patient that this is most likely keloid and would likely recur after removal HPI Patient presents with increasing shortness of breath fatigue and tiredness His called last week stating that the patient was not doing well and has become increasingly short of breath and tired He also complained of a thick scar around the incision site for the loop monitor it seems to be increasing in size according to the patient The site feels itchy according to the patient ROS: No fever chills or rigors, no cough, phlegm or expectoration, no nausea, vomiting or diarrhea, no hematuria, dysuria, no musculoskeletal complaints, no strokes or seizures, no skin lesions. EXAMINATION: Afebrile 97.6F pulse rate 150 beats a minute, blood pressure 133/72 mmHg Pulse ox 98% on room air Heart sounds tachycardic Breath sounds equal air entry bilaterally No JVD Thickening of the skin around a small incision for the loop line consistent with keloid However the thickening extends beyond what is visible on the skin REVIEW OF LABS, ECG & MEDICAL DATA Sodium 136, BUN 21 creatinine 1.24 Physical Exam Vitals: Vital Signs Temp Pulse Resp BP Pulse Ox 09/02/21 06:26 97.6 F 150 H 16 133/72 98 Intake and Output 09/01/21 09/02/21 09/02/21 22:59 06:59 14:59 Intake Total 50 100 Balance 50 100 Intake: IV 50 100 Other: Weight 81.647 kg 84.9 kg Past Medical History Past Medical History: Neurologic Disorder Additional Past Medical History / Comment(s): 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 Arthritic spinal disc disease. See Dr Manuel's H&P, SOB. ira's , periph eral NEUROPATHY. History of Any Multi-Drug Resistant Organisms: None Reported Past Surgical History: Hernia Repair, Prostate Surgery Additional Past Surgical History / Comment(s): double inguinal hernia repair Past Anesthesia/Blood Transfusion Reactions: No Reported Reaction Past Psychological History: No Psychological Hx Reported Smoking Status: Never smoker Past Alcohol Use History: None Reported Additional Past Alcohol Use History / Comment(s): was having a drink a day but was told to stop by Dr due to medication Past Drug Use History: None Reported - Past Family History Mother Family Medical History: Myocardial Infarction ([place]) Father Family Medical History: Myocardial Infarction ([place]) Physical Examination Vital Signs Temp Pulse Resp BP Pulse Ox 09/02/21 06:26 97.6 F 150 H 16 133/72 98 Intake and Output 09/01/21 09/02/21 09/02/21 22:59 06:59 14:59 Intake Total 50 100 Balance 50 100 Intake: IV 50 100 Other: Weight 81.647 kg 84.9 kg Results 09/02/21 06:05 Comprehensive Metabolic Panel 09/02/21 Range/Units 06:05 Sodium 136 L (137-145) mmol/L Potassium 4.3 (3.5-5.1) mmol/L Chloride 106 (98-107) mmol/L Carbon Dioxide 20 L (22-30) mmol/L BUN 21 H (9-20) mg/dL Creatinine 1.24 (0.66-1.25) mg/dL Glucose 123 H (74-99) mg/dL Calcium 8.8 (8.4-10.2) mg/dL Current Medications Generic Name Dose Route Start Last Admin Trade Name Freq PRN Reason Stop Dose Admin Sodium Chloride 1,000 mls @ 20 mls/hr 09/02/21 05:44 Saline 0.9% IV 10/02/21 05:45 .Q24H UNIQUE Intake and Output 09/01/21 09/02/21 09/02/21 22:59 06:59 14:59 Intake Total 50 100 Balance 50 100 Intake: IV 50 100 Other: Weight 81.647 kg 84.9 kg 09/02/21 06:05
[2021-09-02 09:42] VITALS: BP 124/81; PULSE 76
== END 2021-09-02 09:17 | disposition home or self-care (01) ==
LOC: CATHEP 05:54
PROVIDERS: ATTEND Internal Medicine Clinical Cardiac Electrophysiology
DX: I48.92 Unspecified atrial flutter (principal); I47.1 Supraventricular tachycardia; I49.5 Sick sinus syndrome; I10 Essential (primary) hypertension; I48.0 Paroxysmal atrial fibrillation; I44.7 Left bundle-branch block, unspecified; G47.33 Obstructive sleep apnea (adult) (pediatric); Z82.49 Family history of ischemic heart disease and other diseases of the circulatory system; Z86.16 Personal history of COVID-19; Z20.822 Contact with and (suspected) exposure to COVID-19; M47.819 Spondylosis without myelopathy or radiculopathy, site unspecified; G62.9 Polyneuropathy, unspecified; Z95.818 Presence of other cardiac implants and grafts; Z87.440 Personal history of urinary (tract) infections; G20 Parkinson's disease; Z79.899 Other long term (current) drug therapy; Z79.01 Long term (current) use of anticoagulants
CPT/HCPCS: 92960; 80048; 84443; 87635; J2704

== ENCOUNTER 2022-04-30 13:33 | Inpatient (IN) | payer MEDICARE ==
--- NOTE | 2022-04-30 14:17 | ED ---
General Adult HPI - General Chief complaint: Weakness Stated complaint: ANGIE,Dizziness Time Seen by Provider: 04/30/22 13:45 Source: patient, RN notes reviewed, old records reviewed Mode of arrival: ambulatory Limitations: no limitations - History of Present Illness Initial comments: This is an 81-year-old male presents emergency Department stating that he has a history of atrial fibrillation. Patient states she was scheduled today to have an ablation. Patient states that the ablation got moved to Wednesday. Patient states over the last week he's been having more more episodes where he is feeling short of breath and feeling his heart race. Patient states last 2 nights she's been unable to sleep because his been occurring all night long and he can't sleep. Patient denies any chest pain. Patient denies any fevers chills or cough. Patient states when it happens he does feel short of breath. Patient has any swelling to the legs or calf tenderness. Patient denies any abdominal pain patient's nausea vomiting diarrhea. Patient denies any li ghtheadedness or dizziness. - Related Data Home Medications Medication Instructions Recorded Confirmed Rivaroxaban [Xarelto] 20 mg PO HS 02/27/21 04/24/22 Carbidopa-Levodopa (New Dose) 1 dose PO BID 04/24/22 Gabapentin [Neurontin] 400 mg PO HS 04/24/22 04/24/22 Lactulose 1 dose PO DIRECTED 04/24/22 Rosuvastatin Calcium 5 mg PO DAILY 04/24/22 04/24/22 amLODIPine [Norvasc] 2.5 mg PO DAILY 04/24/22 04/24/22 Allergies Allergy/AdvReac Type Severity Reaction Status Date / Time No Known Allergies Allergy Verified 04/24/22 15:16 Review of Systems ROS Statement: Those systems with pertinent positive or pertinent negative responses have been documented in the HPI. ROS Other: All systems not noted in ROS Statement are negative. Past Medical History Past Medical History: Atrial Fibrillation, Neurologic Disorder Additional Past Medical History / Comment(s): COVID .HAS LOOP RECORDER. Arthritic spinal disc disease. See Dr Manuel's H&P, SOB. parkinson's , peripheral NEUROPATHY. History of Any Multi-Drug Resistant Organisms: None Reported Past Surgical History: Hernia Repair, Prostate Surgery Additional Past Surgical History / Comment(s): double inguinal hernia repair Past Anesthesia/Blood Transfusion Reactions: No Reported Reaction Past Psychological History: No Psychological Hx Reported Past Alcohol Use History: None Reported - Past Family History Mother Family Medical History: Myocardial Infarction (SD) Father Family Medical History: Myocardial Infarction (SD) General Exam - General Exam Comments Initial Comments: GENERAL: Patient is well-developed and well-nourished. Patient is nontoxic and well- hydrated and is in no acute distress. ENT: Neck is soft and supple. No significant lymphadenopathy is noted. Oropharynx is clear. Moist mucous membranes. Neck has full range of motion without eliciting any pain. EYES: The sclera were anicteric and conjunctiva were pink and moist. Extraocular movements were intact and pupils were equal round and reactive to light. Eyelids were unremarkable. PULMONARY: Unlabored respirations. Good breath sounds bilaterally. No audible rales rhonchi or wheezing was noted. CARDIOVASCULAR: There is a regular rate and rhythm without any murmurs gallops or rubs. ABDOMEN: Soft and nontender with normal bowel sounds. No palpable organomegaly was noted. There is no palpable pulsatile mass. SKIN: Skin is clear with no lesions or rashes and otherwise unremarkable. NEUROLOGIC: Patient is alert and oriented x3. Cranial nerves II through XII are grossly intact. Motor and sensory are also intact. Normal speech, volume and content. Symmetrical smile. MUSCULOSKELETAL: Normal extremities with adequate strength and full range of motion. No lower extremity swelling or edema. No calf tenderness. LYMPHATICS: No significant lymphadenopathy is noted PSYCHIATRIC: Normal psychiatric evaluation. [id number] Limitations: no limitations Course Vital Signs 04/30/22 13:38 Temperature 97 F L Pulse Rate 70 Respiratory 20 Rate Blood Pressure 180/106 O2 Sat by Pulse 97 Oximetry Medical Decision Making - Medical Decision Making EKG was interpreted by myself and shows a sinus rhythm at 65 bpm ME interval 180 QRSs 172 QT interval 453 QTC is 464. Patient's EKG shows a left bundle branch block. Was pt. sent in by a medical professional or institution (, PA, SPINNING FRAME TENDER, urgent care, hospital, or fpc...) When possible be specific @ -No Did you speak to anyone other than the patient for history (EMS, parent, family, police, friend...)? What history was obtained from this source @ -No Did you review nursing and triage notes (agree or disagree)? Why? @ -I reviewed and agree with nursing and triage notes Were old charts reviewed (outside hosp., previous admission, EMS record, old EKG, old radiological studies, urgent care reports/EKG's, fpc records)? Report findings @ -[place] prior records and prior labs on this patient Differential Diagnosis (chest pain, altered mental status, abdominal pain women, abdominal pain men, vaginal bleeding, weakness, fever, dyspnea, syncope, headache, dizziness, GI bleed, back pain, seizure, CVA, palpatations, mental health, musculoskeletal)? @ -Differential Dyspnea: Coronary syndrome, arrhythmia, tamponade, asthma, COPD, pulmonary embolism, pneumonia, pneumothorax, pulmonary effusion, anaphylaxis, diabetic ketoacidosis, flailed chest, pulmonary contusion, diaphragmatic rupture, anemia, neuromuscular, this is not meant to be an all-inclusive list. EKG interpreted by me (3pts min.). @ -As above X-rays interpreted by me (1pt min.). @ -Chest x-ray shows no acute normalities and it was interpreted by myself CT interpreted by me (1pt min.). @ -None done U/S interpreted by me (1pt. min.). @ -None done What testing was considered but not performed or refused? (CT, X-rays, U/S, labs)? Why? @ -None What meds were considered but not given or refused? Why? @ -None Did you discuss the management of the patient with other professionals (professionals i.e. , PA, SPINNING FRAME TENDER, lab, RT, psych nurse, licensed clinical social worker, site damage prevention technician, teacher, court registry officer, case supervisor)? Give summary @ -I spoke with Dr. Byrnes and he wanted the patient admitted admitted the patient Was smoking cessation discussed for >3mins.? @ -No Was critical care preformed (if so, how long)? @ -No Were there social determinants of health that impacted care today? How? (Homelessness, low income, unemployed, alcoholism, drug addiction, transportation, low edu. Level, literacy, decrease access to med. care, skilled nursing, rehab)? @ -No Was there de-escalation of care discussed even if they declined (Discuss DNR or withdrawal of care, Hospice)? DNR status @ -No What co-morbidities impacted this encounter? (DM, HTN, Smoking, COPD, CAD, Cancer, CVA, ARF, Chemo, Hep., AIDS, mental health diagnosis, sleep apnea, morbid obesity)? @ -Atrial fibrillation Was patient admitted / discharged? Hospital course, mention meds given and route, prescriptions, significant lab abnormalities, going to OR and other pertinent info. @ -Patient was having episodes of significant dyspnea as well as palpitations and was having problems sleeping as of late. I spoke with Dr. Byrnes he agreed to admit the patient and the patient consult cardiology Undiagnosed new problem with uncertain prognosis? @ -No Drug Therapy requiring intensive monitoring for toxicity (Heparin, Nitro, Insulin, Cardizem)? @ -No Were any procedures done? @ -No Diagnosis/symptom? @ -Dyspnea Acute, or Chronic, or Acute on Chronic? @ -Acute Uncomplicated (without systemic symptoms) or Complicated (systemic symptoms)? @ -Uncomplicated Side effects of treatment? @ -No Exacerbation, Progression, or Severe Exacerbation? @ -No Poses a threat to life or bodily function? How? (Chest pain, [place], SD, pneumonia, PE, COPD, DKA, ARF, appy, cholecystitis, CVA, Diverticulitis, Homicidal, Edelmira cidal, threat to staff... and all critical care pts) @ -No Diagnosis/symptom? @ -Palpitations Acute, or Chronic, or Acute on Chronic? @ -Acute Uncomplicated (without systemic symptoms) or Complicated (systemic symptoms)? @ -default Side effects of treatment? @ -none Exacerbation, Progression, or Severe Exacerbation] @ -no Poses a threat to life or bodily function? @ -no - Lab Data Result diagrams: 04/30/22 14:17 Lab Results 04/30/22 Range/Units 14:17 WBC 7.7 (3.8-10.6) k/uL RBC 5.48 (4.30-5.90) m/uL Hgb 17.2 (13.0-17.5) gm/dL Hct 51.4 (39.0-53.0) % MCV 93.9 (80.0-100.0) fL MCH 31.5 (25.0-35.0) pg MCHC 33.5 (31.0-37.0) g/dL RDW 12.5 (11.5-15.5) % Plt Count 197 (150-450) k/uL MPV 7.6 Neutrophils % 80 % Lymphocytes % 11 % Monocytes % 6 % Eosinophils % 1 % Basophils % 1 % Neutrophils # 6.1 (1.3-7.7) k/uL Lymphocytes # 0.9 L (1.0-4.8) k/uL Monocytes # 0.5 (0-1.0) k/uL Eosinophils # 0.1 (0-0.7) k/uL Basophils # 0.0 (0-0.2) k/uL Disposition Clinical Impression: Dyspnea, Palpitations Disposition: ADMITTED IP TO THIS HOSP Referrals: Yared Byrnes MD [Primary Care Provider] - 1-2 days Time of Disposition: 15:19
[2022-04-30 14:30] LABS: Basophils % (A) 1 %; Eosinophils # (A) 0.1 k/uL (0-0.7); Eosinophils % (A) 1 %; HCT 51.4 % (39.0-53.0); HGB 17.2 gm/dL (13.0-17.5); Lymphocytes # (A) 0.9 k/uL (1.0-4.8); Lymphocytes % (A) 11 %; MCH 31.5 pg (25.0-35.0); MCHC 33.5 g/dL (31.0-37.0); MCV 93.9 fL (80.0-100.0); Mean Platelet Volume 7.6; Monocytes # (A) 0.5 k/uL (0-1.0); Monocytes % (A) 6 %; Neutrophils # (A) 6.1 k/uL (1.3-7.7); Neutrophils % (A) 80 %; Platelet Count 197 k/uL (150-450); RBC 5.48 m/uL (4.30-5.90); RDW 12.5 % (11.5-15.5); WBC 7.7 k/uL (3.8-10.6)
--- NOTE | 2022-04-30 15:07 | XR ---
EXAMINATION TYPE: XR chest 2V DATE OF EXAM: 04/30/2022 COMPARISON: 03/25/2022 HISTORY: 81-year-old male dysrhythmias, weakness TECHNIQUE: AP and lateral views FINDINGS: Loop recorder device projects over the left side of the heart. Heart upper limits of normal in size. Aorta and pulmonary vasculature within normal limits. Some minimal strandy atelectasis left base. Dis h mid and lower thoracic spine. No consolidation or pleural effusion. IMPRESSION: Chronic changes without acute cardiopulmonary process. Extensive changes of DISH in the thoracic spin e.
[2022-04-30] MEDS ORDERED: NITROGLYCERIN SL TABS 0.4 MG TAB SUBLINGUAL PRN (15:20)
[2022-04-30 15:59] LABS: Partial Thromboplastin Time 27.1 sec (22.0-30.0); Prothrombin Time 10.9 sec (9.0-12.0)
[2022-04-30 16:25] LABS: Albumin 4.6 g/dL (3.5-5.0); Potassium 4.1 mmol/L (3.5-5.1); Total Bilirubin 1.3 mg/dL (0.2-1.3); Total Protein 7.8 g/dL (6.3-8.2)
[2022-05-01] MEDS: amLODIPine 2.5 MG TAB PO SCH (08:30)
[2022-05-01] MEDS: RIVAROXABAN 20 MG TAB PO SCH (08:30)
[2022-05-01] MEDS: ATORVASTATIN 10 MG TAB PO SCH (08:30)
[2022-05-01] MEDS: CARBIDOPA-LEVODOPA ER 50-200MG 1 EACH TABLET.ER PO SCH ×2 (08:30→15:13)
[2022-05-01] MEDS ORDERED: ASPIRIN 325 MG TAB PO SCH (09:00)
--- NOTE | 2022-05-01 09:42 | CA ---
Transthoracic Echo Report Name: Denton Mike Age: 81 Gender: M : 1940 Exam Date: 05/01/2022 08:27 Exam Location: [facility] Ht (in): 72 Wt (lb): 189 Ordering Physician: Adalgisa Barcenas Attending/Referring Phys: [id number], Swapna Rougher [employer] Radha Sarah, RDCS Procedure CPT: Indications: LVF Cardiac Hx: limited study only Technical Quality: Good Contrast 1: Total Dose (mL): Contrast 2: Total Dose (mL): MEASUREMENTS (Male / Female) Normal Values 2D ECHO RV Internal Dim ED PLAX 3.8 cm DOPPLER AV Peak Velocity 131.3 cm/s AV Peak Gradient 6.9 mmHg AV Mean Velocity 85.9 cm/s AV Mean Gradient 3.6 mmHg AV Velocity Time Integral 27.7 cm AI Peak Velocity 397.2 cm/s AI Peak Gradient 63.1 mmHg AI Pressure Half Time 1810.9 ms LVOT Peak Velocity 139.5 cm/s LVOT Peak Gradient 7.8 mmHg TR Peak Velocity 244.5 cm/s TR Peak Gradient 23.9 mmHg Right Ventricular Systolic Press 28.9 mmHg FINDINGS Left Ventricle Left ventricular ejection fraction is estimated at 55-60 %. Normal left ventricular systolic function with no obvious regional wall motion abnormalities. Right Ventricle Normal right ventricular size and function. Right Atrium Left Atrium Mitral Valve Mild mitral regurgitation. Aortic Valve Trileaflet aortic valve. Mild aortic regurgitation. Tricuspid Valve Mild tricuspid regurgitation. Pulmonic Valve Structurally normal pulmonic valve. Pericardium Normal pericardium. No pericardial effusion. Aorta CONCLUSIONS Preserved LV systolic function Asymmetric septal hypertrophy Normal pericardium No significant valvular abnormalities Previewed by: Dr. José Luis Manuel MD (Electronically Signed) Final Date: 01 May 2022 09:41
--- NOTE | 2022-05-01 10:45 | P.CRDCN ---
History of Present Illness Consult date: 05/01/22 Reason for Consult (text): Palpitations, dyspnea History of present illness: History of present illness: This is an 81-year-old male patient of Dr. Manuel with past medical history of typical atrial flutter/atrial fibrillation, atrial tachycardia status post electrical cardioversion, hypertension, left bundle branch block. Patient states he had sudden onset of shortness of breath dizziness feeling tired and fatigued. He states he sometimes has palpitations and when he is laying in bed he can feel that his heart is missing a beat maybe about 4 times per minute. He last took his Xarelto 2 nights ago. Patient is scheduled for ablation on Wednesday with Dr. Perez. He does have history of bradycardia and has not been on a beta olivia because of this. EKG sinus rhythm with left bundle branch block Laboratory studies: CBC unremarkable. INR 1. Troponin negative 2. His sodium 136, potassium 4.1, BUN 17 creatinine 0.92. Blood sugar 106. TSH from March was 1.07. Chest x-ray: Chronic changes without acute cardiac pulmonary process. Home cardiac medications: Amlodipine 2.5 mg daily, Xarelto 20 mg with supper, rosuvastatin 5 mg daily Lexiscan stress test 2018 had fixed defect related to left bundle branch block, no reversible ischemia Echocardiogram 12/2021 revealed EF of 55%, intermediate diastolic dysfunction, moderate left ear H, ascending aortic measuring 3.8 cm, mild/moderate MR, RVSP 40 mmHg Cardioversion 08/2021 for atrial tachycardia Limited echocardiogram 05/01: Preserved LV systolic function. Asymmetrical septal hypertrophy. Normal pericardium. No significant valvular abnormalities. Review Of Systems: At the time of my evaluation: Constitutional: No fever, no chills. No weakness, reports fatigue no lethargy. EENT: No headache. Reports dizziness. Lungs: No shortness of breath, cough, no sputum production. No wheezing. Cardiovascular: No chest pain, no lower extremity edema. Occasional palpi tations. No paroxysmal nocturnal dyspnea. No orthopnea. No lightheadedness or dizziness. No syncopal episodes. Abdominal: No abdominal pain. No nausea, vomiting. No diarrhea. No constipation. No bloody or tarry stools. Genitourinary: No dysuria.. No urinary retention. Musculoskeletal: No myalgias. No muscle weakness, no frequent falls. No back pain. No neck pain. Integumentary: No wounds. Neurologic: No aphasia. No facial droop. No change in mentation. No head injury. No headache. Physical examination: Gen: This is an 81-year-old male. He is resting in bed and appears to be comfortable. No acute distress. VS: reviewed HEENT: Head is atraumatic, normocephalic. Pupils equal, round. Sclerae is anicteric. NECK: Supple. No JVD. LUNGS: Clear to auscultation. No wheezes or rhonchi. No intercostal retractions. HEART: Regular rate and rhythm. Systolic murmur. ABDOMEN: Soft. No tenderness. EXTREMITIES: No pedal edema. No calf tenderness. NEUROLOGICAL: Patient is awake, alert and oriented x3. Assessment: Vague symptoms of fatigue, dizziness shortness of breath possibly related to bradycardia History of A. fib/A flutter scheduled for ablation on Wednesday Hypertension Left bundle branch block Plan: Avoid all AV natalie blocking drugs Continue telemetry monitoring Change Xarelto to a.m. dosing in, patient missed last evening's dose Patient scheduled for ablation on Wednesday. The plan to monitor patient over the weekend regarding arrhythmias including bradycardia which may be causing his symptoms of fatigue and etc. Continue patient's home cardiac medications Further recommendations to follow based upon clinical course Thank you kindly for this consultation. Nurse practitioner note has been reviewed, I agree with documented findings and plan of care. Patient was seen and examined. Past Medical History Past Medical History: Atrial Fibrillation, Neurologic Disorder Additional Past Medical History / Comment(s): COVID .HAS LOOP RECORDER. Arthritic spinal disc disease. See Dr Manuel's H&P, SOB. parkinson's , peripheral NEUROPATHY. History of Any Multi-Drug Resistant Organisms: None Reported Past Surgical History: Hernia Repair, Prostate Surgery Additional Past Surgical History / Comment(s): double inguinal hernia repair Past Anesthesia/Blood Transfusion Reactions: No Reported Reaction Past Psychological History: No Psychological Hx Reported Smoking Status: Never smoker Past Alcohol Use History: None Reported Additional Past Alcohol Use History / Comment(s): was having a drink a day but was told to stop by due to medication Past Drug Use History: None Reported - Past Family History Mother Family Medical History: Myocardial Infarction ([place]) Father Family Medical History: Myocardial Infarction ([place]) Medications and Allergies Home Medications Medication Instructions Recorded Confirmed Type Rivaroxaban [Xarelto] 20 mg PO W/SUPPER 02/27/21 04/30/22 History Rosuvastatin Calcium 5 mg PO DAILY 04/24/22 04/30/22 History amLODIPine [Norvasc] 2.5 mg PO DAILY 04/24/22 04/30/22 History Carbidopa-Levodopa ER 50-200Mg 1 tab PO BID@0800,1300 04/30/22 04/30/22 History [Sinemet CR 50-200 mg] Lactulose 20 gm PO HS 04/30/22 04/30/22 History Allergies Allergy/AdvReac Type Severity Reaction Status Date / Time No Known Allergies Allergy Verified 04/30/22 16:28 Physical Exam Vitals: Vital Signs Temp Pulse Pulse Resp BP BP Pulse Ox 05/01/22 02:03 97.9 F 54 L 18 156/84 98 04/30/22 22:00 97.7 F 62 17 148/83 96 04/30/22 20:18 98.7 F 57 L 16 145/76 96 04/30/22 18:00 65 16 187/95 98 04/30/22 17:00 67 16 156/81 99 04/30/22 16:00 68 18 166/85 97 04/30/22 15:00 67 16 164/90 98 04/30/22 14:31 65 18 155/94 97 04/30/22 13:38 97 F L 70 20 180/106 97 Intake and Output 04/30/22 05/01/22 05/01/22 22:59 06:59 14:59 Other: # Voids 1 1 Weight 85.729 kg Results 04/30/22 14:17 04/30/22 15:30 Cardiac Enzymes 04/30/22 04/30/22 04/30/22 Range/Units 15:30 15:30 18:08 AST 23 (17-59) U/L Troponin I <0.012 <0.012 (0.000-0.034) ng/mL Coagulation 04/30/22 Range/Units 15:30 PT 10.9 (9.0-12.0) sec APTT 27.1 (22.0-30.0) sec CBC 04/30/22 Range/Units 14:17 WBC 7.7 (3.8-10.6) k/uL RBC 5.48 (4.30-5.90) m/uL Hgb 17.2 (13.0-17.5) gm/dL Hct 51.4 (39.0-53.0) % Plt Count 197 (150-450) k/uL Comprehensive Metabolic Panel 04/30/22 Range/Units 15:30 Sodium 136 L (137-145) mmol/L Potassium 4.1 (3.5-5.1) mmol/L Chloride 101 (98-107) mmol/L Carbon Dioxide 24 (22-30) mmol/L BUN 17 (9-20) mg/dL Creatinine 0.92 (0.66-1.25) mg/dL Glucose 106 H (74-99) mg/dL Calcium 9.0 (8.4-10.2) mg/dL AST 23 (17-59) U/L ALT 11 (4-49) U/L Alkaline Phosphatase 64 (38-126) U/L Total Protein 7.8 (6.3-8.2) g/dL Albumin 4.6 (3.5-5.0) g/dL Current Medications Generic Name Dose Route Start Last Admin Trade Name Freq PRN Reason Stop Dose Admin Amlodipine Besylate 2.5 mg 05/01/22 09:00 Amlodipine 2.5 Mg Tab PO DAILY [facility] Aspirin 325 mg 05/01/22 09:00 Aspirin 325 Mg Tab PO DAILY [facility] Carbidopa/Levodopa 1 each 05/01/22 08:00 Carbidopa-Levodopa Er 50-200mg 1 Each Tablet.Er PO BID@0800,1300 [facility] Lactulose 20 gm 05/01/22 21:00 Lactulose 200 Gm/300 Ml (From 02/23 Gal Jug) PO HS [facility] Nitroglycerin 0.4 mg 04/30/22 15:20 Nitroglycerin Sl Tabs 0.4 Mg Tab SUBLINGUAL Q5M PRN Chest Pain Non-Formulary Medication 5 mg 05/01/22 09:00 Rosuvastatin Calcium [Rosuvastatin Calcium] PO DAILY [facility] Rivaroxaban 20 mg 05/01/22 17:30 Rivaroxaban 20 Mg Tab PO W/SUPPER [facility] Protocol Intake and Output 04/30/22 05/01/22 05/01/22 22:59 06:59 14:59 Other: # Voids 1 1 Weight 85.729 kg 04/30/22 14:17 04/30/22 15:30
[2022-05-01] MEDS ORDERED: SODIUM CHLORIDE 0.9% 1,000 ML IV SCH (11:30)
[2022-05-01 11:33] LABS: LDL Cholesterol,Calculated 61.9 mg/dL (0.0-131.0); VLDL Calculation 12.58 mg/dL (5.00-40.00)
--- NOTE | 2022-05-01 12:31 | P.HPIM ---
History of Present Illness H&P Date: 05/01/22 This is an 81 year old male with medical history of atrial flutter/atrial fibrillation, parkinson's, peripheral neuropathy. Patient has a loop recorder in place. He has been seeing Dr Manuel outpatient and is waiting to undergo cardiac ablation which is scheduled outpatient Wednesday. Patient does have known history of sinus bradycardia, he is anticoagulated with xarelto which patient last took 2 nights ago. Patient Reports feeling increased dizziness lightheadedness and shortness of breath, as well as fatigue and was directed to come to the for further evaluation by his diesel inspector. He denies palpitations but does report feeling skipped or missed beats. He denies fever/chills. Denies cough. No syncope. No nausea vomiting or diarrhea. Initial EKG reveals sinus rhythm with left bundle branch block heart rate of 65. Patient had a chest xray done showing chronic changes without acute cardiopulmonary process. Extensive changes of diffuse idiopathic skeletal hyperostosis in the thoracic spine. Echocardiogram reveals preserved LV sytolic function, asymmetric septal hypertrophy, normal pericardium, no significant valvular abnormalities. Lab work is essentially unremarkable, troponin negative x 2, sodium of 136, glucose of 106. Lipid panel is unremarkable. Patient is afebrile, heart rate of 65, blood pressure 176/77, 97% on room air. Home medications have been resumed. REVIEW OF SYSTEMS: CONSTITUTIONAL: No fever, no malaise, Reports fatigue. HEENT: No recent visual problems or hearing problems. Denied any sore throat. CARDIOVASCULAR: No chest pain, orthopnea, PND, no palpitations, no syncope. PULMONARY: Reports shortnes of breath, no cough, no hemoptysis. GASTROINTESTINAL: No diarrhea, no nausea, no vomiting, no abdominal pain. NEUROLOGICAL: No headaches, no weakness, no numbness. HEMATOLOGICAL: Denies any bleeding or petechiae. GENITOURINARY: Denies any burning micturition, frequency, or urgency. MUSCULOSKELETAL/RHEUMATOLOGICAL: Denies any joint pain, swelling, or any muscle pain. ENDOCRINE: Denies any polyuria or polydipsia. The rest of the 14-point review of systems is negative. PHYSICAL EXAMINATION: GENERAL: The patient is alert and oriented x3, not in any acute distress. Well developed, well nourished. HEENT: Pupils are round and equally reacting to light. EOMI. No scleral icterus. No conjunctival pallor. Normocephalic, atraumatic. No pharyngeal erythema. No thyromegaly. CARDIOVASCULAR: S1 and S2 present. No murmurs, rubs, or gallops. brdaycardic. regular rate and rhythm. PULMONARY: Chest is clear to auscultation, no wheezing or crackles. ABDOMEN: Soft, nontender, nondistended, normoactive bowel sounds. No palpable organomegaly. MUSCULOSKELETAL: No joint swelling or deformity. EXTREMITIES: No cyanosis, clubbing, or pedal edema. NEUROLOGICAL: Gross neurological examination did not reveal any focal deficits. SKIN: No rashes. Assessment and Plan Assessment Generalized fatigue, shortness of breath and dizziness possibly related to underlying cardiac arrhythmia History of atrial flutter/fibrillation with cardioversion. Implantable loop recorder History of Parkinson's maintained on Sinemet Peripheral neuropathy History of hernia repair Prior daily ETOH use GI prophylaxis DVT prophylaxis patient is anticoagulated with xarelto Plan Resume home medications Avoid AV natalie blocking agents Check TSH Continue Xarelto patient is scheduled for EP study with possible cardioversion on May [address] Manuel Continue telemetry Patient symptomatic secondary to EKG changes patient will be made inpatient, anticipated hospital stay greater than 2 nights. The impression and plan of care has been dictated by Jyoti Peace Nurse Practitioner as directed. Dr. Adelfo MD I have performed a history and physical examination and medical decision making of this patient, discussed the same with the dictator, and agree with the dictators assessment and plan as written, documented as a scribe. Based on total visit time, I have performed more than 50% of this visit. Past Medical History Past Medical History: Atrial Fibrillation, Neurologic Disorder Additional Past Medical History / Comment(s): COVID .HAS LOOP RECORDER. Arthritic spinal disc disease. See Dr Manuel's H&P, SOB. parkinson's , peripheral NEUROPATHY. History of Any Multi-Drug Resistant Organisms: None Reported Past Surgical History: Hernia Repair, Prostate Surgery Additional Past Surgical History / Comment(s): double inguinal hernia repair Past Anesthesia/Blood Transfusion Reactions: No Reported Reaction Past Psychological History: No Psychological Hx Reported Smoking Status: Never smoker Past Alcohol Use History: None Reported Additional Past Alcohol Use History / Comment(s): was having a drink a day but was told to stop by due to medication Past Drug Use History: None Reported - Past Family History Mother Family Medical History: Myocardial Infarction ([place]) Father Family Medical History: Myocardial Infarction ([place]) Medications and Allergies Home Medications Medication Instructions Recorded Confirmed Type Rivaroxaban [Xarelto] 20 mg PO W/SUPPER 02/27/21 04/30/22 History Rosuvastatin Calcium 5 mg PO DAILY 04/24/22 04/30/22 History amLODIPine [Norvasc] 2.5 mg PO DAILY 04/24/22 04/30/22 History Carbidopa-Levodopa ER 50-200Mg 1 tab PO BID@0800,1300 04/30/22 04/30/22 History [Sinemet CR 50-200 mg] Lactulose 20 gm PO HS 04/30/22 04/30/22 History Allergies Allergy/AdvReac Type Severity Reaction Status Date / Time No Known Allergies Allergy Verified 04/30/22 16:28 Physical Exam Vitals: Vital Signs Temp Pulse Pulse Resp BP BP Pulse Ox 05/01/22 08:10 96 05/01/22 07:00 98.2 F 65 16 176/77 97 05/01/22 02:03 97.9 F 54 L 18 156/84 98 04/30/22 22:00 97.7 F 62 17 148/83 96 04/30/22 20:18 98.7 F 57 L 16 145/76 96 04/30/22 18:00 65 16 187/95 98 04/30/22 17:00 67 16 156/81 99 04/30/22 16:00 68 18 166/85 97 04/30/22 15:00 67 16 164/90 98 04/30/22 14:31 65 18 155/94 97 04/30/22 13:38 97 F L 70 20 180/106 97 Intake and Output 04/30/22 05/01/22 05/01/22 22:59 06:59 14:59 Other: # Voids 1 1 Weight 85.729 kg Results CBC & Chem 7: 04/30/22 14:17 04/30/22 15:30 Labs: Abnormal Lab Results - Last 24 Hours (Table) 04/30/22 04/30/22 Range/Units 14:17 15:30 Lymphocytes # 0.9 L (1.0-4.8) k/uL Sodium 136 L (137-145) mmol/L Glucose 106 H (74-99) mg/dL Thrombosis Risk Factor Assmnt - Choose All That Apply Any of the Below Risk Factors Present?: Yes Each Factor Represents 1 point: Obesity (BMI >25) Other Risk Factors: Yes Each Risk Factor Represents 3 Points: Age 75 years or older Other congenital or acquired thrombophilia - If yes, enter type in comment: No Thrombosis Risk Factor Assessment Total Risk Factor Score: 4 Thrombosis Risk Factor Assessment Level: Moderate Risk Assessment and Plan Time with Patient: Less than 30
[2022-05-01] MEDS ORDERED: RIVAROXABAN 20 MG TAB PO SCH (17:30)
[2022-05-01] MEDS: LACTULOSE 20 GM/30 ML CUP PO SCH (22:03)
[2022-05-02] MEDS ORDERED: NAPROXEN 250 MG TAB PO PRN ×2 (02:22→03:19)
[2022-05-02] MEDS: FAMOTIDINE 20 MG TAB PO SCH (08:38)
[2022-05-02] MEDS: RIVAROXABAN 20 MG TAB PO SCH (08:38)
[2022-05-02] MEDS: CARBIDOPA-LEVODOPA ER 50-200MG 1 EACH TABLET.ER PO SCH ×2 (08:38→13:57)
[2022-05-02] MEDS: amLODIPine 2.5 MG TAB PO SCH (08:38)
[2022-05-02] MEDS: ATORVASTATIN 10 MG TAB PO SCH (08:38)
[2022-05-02] MEDS ORDERED: amLODIPine 2.5 MG TAB PO ONE (10:15)
[2022-05-02] MEDS: DULoxetine HCL 30 MG CAPSULE.DR PO SCH (11:46)
--- NOTE | 2022-05-02 11:54 | P.PN ---
Subjective Progress Note Date: 05/02/22 This is an 81-year-old male patient of Dr. Manuel with past medical history of typical atrial flutter/atrial fibrillation, atrial tachycardia status post electrical cardioversion, hypertension, left bundle branch block. Patient states he had sudden onset of shortness of breath dizziness feeling tired and fatigued. He states he sometimes has palpitations and when he is laying in bed he can feel that his heart is missing a beat maybe about 4 times per minute. He last took his Xarelto 2 nights ago. Patient is scheduled for ablation on Wednesday with Dr. Manuel. He does have history of bradycardia and has not been on a beta olivia because of this. 05/02/2022 Patient was seen and examined resting in bed. He complains of generalized body aches and feeling cold. He apparently was previously on gabapentin for peripheral neuropathy but that's been weaned off and he has been having significant symptoms because of this. He is maintaining sinus mechanism. There is no significant bradycardia noted on telemetry. He is anticipating undergoing ablation on Wednesday. Objective - Vital Signs Vital signs: Vital Signs Temp 96.2 F L 05/02/22 07:06 Pulse 53 L 05/02/22 07:06 Resp 18 05/02/22 08:38 BP 184/84 05/02/22 07:06 Pulse Ox 100 05/02/22 07:28 FiO2 Intake & Output 05/01/22 05/02/22 05/02/22 18:59 06:59 18:59 Intake Total 476 Balance 476 Intake: Oral 476 Other: Voiding Method Toilet # Voids 1 2 1 - Exam HEENT: Head is atraumatic, normocephalic. Pupils equal, round. Sclerae is anicteric. NECK: Supple. No JVD. LUNGS: Clear to auscultation. No wheezes or rhonchi. No intercostal retractions. HEART: Regular rate and rhythm. Systolic murmur. ABDOMEN: Soft. No tenderness. EXTREMITIES: No pedal edema. No calf tenderness. NEUROLOGICAL: Patient is awake, alert and oriented x3. - Labs CBC & Chem 7: 04/30/22 14:17 04/30/22 15:30 Assessment and Plan Assessment: Vague symptoms of fatigue, dizziness shortness of breath possibly related to bradycardia History of A. fib/A flutter scheduled for ablation on Wednesday Hypertension Left bundle branch block Plan: Avoid all AV natalie blocking drugs. Continue telemetry monitoring, no evidence of significant bradycardia at this time. Patient scheduled for ablation on Wednesday. The plan to monitor patient over the weekend regarding arrhythmias including bradycardia which may be causing his symptoms of fatigue and etc. Increase amlodipine for better blood pressure control. DAYCARE DIRECTOR note has been reviewed, I agree with a documented findings and plan of care. Patient was seen and examined.
[2022-05-02] MEDS ORDERED: lisinopriL 10 MG TAB PO STA (15:39)
[2022-05-02] MEDS ORDERED: LACTULOSE 20 GM/30 ML CUP PO ONE (15:40)
[2022-05-02] MEDS ORDERED: ACETAMINOPHEN TAB 325 MG TAB PO PRN (15:41)
--- NOTE | 2022-05-02 15:48 | P.PN ---
Subjective Progress Note Date: 05/02/22 This is an 81 year old male with medical history of atrial flutter/atrial fibrillation, parkinson's, peripheral neuropathy. Patient has a loop recorder in place. He has been seeing Dr Manuel outpatient and is waiting to undergo cardiac ablation which is scheduled outpatient Wednesday. Patient does have known history of sinus bradycardia, he is anticoagulated with xarelto which patient last took 2 nights ago. Patient Reports feeling increased dizziness lightheadedness and shortness of breath, as well as fatigue and was directed to come to the for further evaluation by his cooker mechanic. He denies palp itations but does report feeling skipped or missed beats. He denies fever/chills. Denies cough. No syncope. No nausea vomiting or diarrhea. Initial EKG reveals sinus rhythm with left bundle branch block heart rate of 65. Patient had a chest xray done showing chronic changes without acute cardiopulmonary process. Extensive changes of diffuse idiopathic skeletal hyperostosis in the thoracic spine. Echocardiogram reveals preserved LV sytolic function, asymmetric septal hypertrophy, normal pericardium, no significant valvular abnormalities. Lab work is essentially unremarkable, troponin negative x 2, sodium of 136, glucose of 106. Lipid panel is unremarkable. Patient is afebrile, heart rate of 65, blood pressure 176/77, 97% on room air. Home medications have been resumed. 05/02/2022 Patient is evaluated today on medical floor. Patient follows with Dr. Byrnes who will resume care on Wednesday. No acute events overnight. Patient continues to report same symptoms of generalized fatigue and shortness of breath as well as feeling cold. He states this is normal for him. Denies any recent illness. He continues to be monitored on telemetry and remains in sinus rhythm. Patient received an extra dose of amlodipine 2.5 mg today and increased to 5 mg started tomorrow. Blood pressure remains elevated at 189 systolic. Review of Systems Constitutional: Reports fatigue, denied any fever. Cardio vascular: denied any chest pain, palpitations Gastrointestinal: denied any nausea, vomiting, diarrhea Pulmonary: Denied any shortness of breath cough Neurologic: Reports generalized muscle aches. All inpatient medications were reviewed and appropriate changes in these medications as dictated in the interval history and assessment and plan. PHYSICAL EXAMINATION: GENERAL: The patient is alert and oriented x3, not in any acute distress. Well developed, well nourished. HEENT: Pupils are round and equally reacting to light. EOMI. No scleral icterus. No conjunctival pallor. Normocephalic, atraumatic. No pharyngeal erythema. No thyromegaly. CARDIOVASCULAR: S1 and S2 present. No murmurs, rubs, or gallops. brdaycardic. regular rate and rhythm. PULMONARY: Chest is clear to auscultation, no wheezing or crackles. ABDOMEN: Soft, nontender, nondistended, normoactive bowel sounds. No palpable organomegaly. MUSCULOSKELETAL: No joint swelling or deformity. EXTREMITIES: No cyanosis, clubbing, or pedal edema. NEUROLOGICAL: Gross neurological examination did not reveal any focal deficits. SKIN: No rashes. Assessment and Plan Assessment Generalized fatigue, shortness of breath and dizziness possibly related to underlying cardiac arrhythmia History of atrial flutter/fibrillation with cardioversion. Hypertension Peripheral neuropathy weaned off gabapentin outpatient and has significant generalized body aches Constipation Implantable loop recorder History of Parkinson's maintained on Sinemet History of hernia repair Prior daily ETOH use GI prophylaxis DVT prophylaxis patient is anticoagulated with xarelto Plan Medication adjusted for blood pressure control Pain management and patient has been started on cymbalta for peripheral neuropathy Avoid AV natalie blocking agents Continue Xarelto patient is scheduled for EP study with possible cardioversion on May [address] Manuel Continue telemetry The impression and plan of care has been dictated by Jyoti Peace, Nurse Practitioner as directed. Dr. Adelfo MD I have performed a history and physical examination and medical decision making of this patient, discussed the same with the dictator, and agree with the dictators assessment and plan as written, documented as a scribe. Based on total visit time, I have performed more than 50% of this visit. Objective - Vital Signs Vital signs: Vital Signs Temp 97.8 F 05/02/22 14:00 Pulse 70 05/02/22 14:00 Resp 17 05/02/22 14:00 BP 189/84 05/02/22 14:00 Pulse Ox 96 05/02/22 14:00 FiO2 Intake & Output 05/01/22 05/02/22 05/02/22 18:59 06:59 18:59 Intake Total 476 Balance 476 Intake: Oral 476 Other: Voiding Method Toilet # Voids 1 2 1 - Labs CBC & Chem 7: 04/30/22 14:17 04/30/22 15:30 Assessment and Plan Time with Patient: Less than 30
[2022-05-02] MEDS: traMADol 50 MG TAB PO PRN (15:59)
[2022-05-02] MEDS: LACTULOSE 20 GM/30 ML CUP PO SCH (22:03)
[2022-05-03] MEDS: DULoxetine HCL 30 MG CAPSULE.DR PO SCH (09:12)
[2022-05-03] MEDS: RIVAROXABAN 20 MG TAB PO SCH (09:12)
[2022-05-03] MEDS: CARBIDOPA-LEVODOPA ER 50-200MG 1 EACH TABLET.ER PO SCH ×2 (09:12→15:12)
[2022-05-03] MEDS: FAMOTIDINE 20 MG TAB PO SCH (09:15)
[2022-05-03] MEDS: amLODIPine 5 MG TAB PO SCH (09:15)
[2022-05-03] MEDS: traMADol 50 MG TAB PO PRN (09:16)
[2022-05-03] MEDS: ATORVASTATIN 10 MG TAB PO SCH (09:16)
[2022-05-03] MEDS ORDERED: NA PHOS,M-B/NA PHOS,DI-BA 133 ML ENEMA RECTAL ONE (12:00)
--- NOTE | 2022-05-03 12:46 | P.PN ---
Subjective Progress Note Date: 05/03/22 This is an 81-year-old male patient of Dr. Manuel with past medical history of typical atrial flutter/atrial fibrillation, atrial tachycardia status post electrical cardioversion, hypertension, left bundle branch block. Patient states he had sudden onset of shortness of breath dizziness feeling tired and fatigued. He states he sometimes has palpitations and when he is laying in bed he can feel that his heart is missing a beat maybe about 4 times per minute. He last took his Xarelto 2 nights ago. Patient is scheduled for ablation on Wednesday with Dr. Manuel. He does have history of bradycardia and has not been on a beta olivia because of this. 05/02/2022 Patient was seen and examined resting in bed. He complains of generalized body aches and feeling cold. He apparently was previously on gabapentin for peripheral neuropathy but that's been weaned off and he has been having significant symptoms because of this. He is maintaining sinus mechanism. There is no significant bradycardia noted on telemetry. He is anticipating undergoing ablation on Wednesday. 05/03/2022 The patient was seen and examined resting comfortably in bed. He continues to complain of episodes of palpitations and dizziness. Telemetry shows very brief episodes of PAT but no sustained arrhythmia and no significant bradycardia. His main complaint today is constipation and primary is addressing this. Objective - Vital Signs Vital signs: Vital Signs Temp 97.8 F 05/03/22 07:10 Pulse 59 L 05/03/22 07:10 Resp 17 05/03/22 09:12 BP 153/68 05/03/22 07:10 Pulse Ox 97 05/03/22 07:10 FiO2 Intake & Output 05/02/22 05/03/22 05/03/22 17:59 06:59 18:59 Other: Voiding Method Toilet # Voids - Exam HEENT: Head is atraumatic, normocephalic. Pupils equal, round. Sclerae is anicteric. NECK: Supple. No JVD. LUNGS: Clear to auscultation. No wheezes or rhonchi. No intercostal retractions. HEART: Regular rate and rhythm. Systolic murmur. ABDOMEN: Soft. No tenderness. EXTREMITIES: No pedal edema. No calf tenderness. NEUROLOGICAL: Patient is awake, alert and oriented x3. - Labs CBC & Chem 7: 04/30/22 14:17 04/30/22 15:30 Assessment and Plan Assessment: Vague symptoms of fatigue, dizziness shortness of breath possibly related to bradycardia History of A. fib/A flutter scheduled for ablation on Wednesday Hypertension Left bundle branch block Plan: From cardiology's perspective avoid all AV natalie blocking drugs. Continue telemetry monitoring, no evidence of significant bradycardia or sustained arrhythmia at this time. Patient scheduled for ablation on Wednesday. Continue to monitor patient for sustained arrhythmias and bradycardia. TAFFY PULLER note has been reviewed, I agree with a documented findings and plan of care. Patient was seen and examined.
--- NOTE | 2022-05-03 14:52 | P.PN ---
Subjective Progress Note Date: 05/03/22 This is an 81 year old male with medical history of atrial flutter/atrial fibrillation, parkinson's, peripheral neuropathy. Patient has a loop recorder in place. He has been seeing Dr Manuel outpatient and is waiting to undergo cardiac ablation which is scheduled outpatient Wednesday. Patient does have known history of sinus bradycardia, he is anticoagulated with xarelto which patient last took 2 nights ago. Patient Reports feeling increased dizziness lightheadedness and shortness of breath, as well as fatigue and was directed to come to the for further evaluation by his homebound teacher. He denies palp itations but does report feeling skipped or missed beats. He denies fever/chills. Denies cough. No syncope. No nausea vomiting or diarrhea. Initial EKG reveals sinus rhythm with left bundle branch block heart rate of 65. Patient had a chest xray done showing chronic changes without acute cardiopulmonary process. Extensive changes of diffuse idiopathic skeletal hyperostosis in the thoracic spine. Echocardiogram reveals preserved LV sytolic function, asymmetric septal hypertrophy, normal pericardium, no significant valvular abnormalities. Lab work is essentially unremarkable, troponin negative x 2, sodium of 136, glucose of 106. Lipid panel is unremarkable. Patient is afebrile, heart rate of 65, blood pressure 176/77, 97% on room air. Home medications have been resumed. 05/02/2022 Patient is evaluated today on medical floor. Patient follows with Dr. Byrnes who will resume care on Wednesday. No acute events overnight. Patient continues to report same symptoms of generalized fatigue and shortness of breath as well as feeling cold. He states this is normal for him. Denies any recent illness. He continues to be monitored on telemetry and remains in sinus rhythm. Patient received an extra dose of amlodipine 2.5 mg today and increased to 5 mg started tomorrow. Blood pressure remains elevated at 189 systolic. 05/03/2022 Patient evaluated today resting in bed. Main complaint is that he has not been able to have a bowel movement. He received 2 doses of lactulose yesterday and today received a fleet enema. He did have a large BM. He reports no chest pain. He does feel "off" which he states he gets like that when he is unable to have a BM. His blood pressure did improve to 150/60s after receiving a dose of lisinopril. Heart rate remains in the high 50s sinus mechanism. Review of Systems Constitutional: Reports fatigue, denied any fever. Cardio vascular: denied any chest pain, palpitations Gastrointestinal: denied any nausea, vomiting, diarrhea Pulmonary: Denied any shortness of breath cough Neurologic: Reports generalized muscle aches. All inpatient medications were reviewed and appropriate changes in these medications as dictated in the interval history and assessment and plan. PHYSICAL EXAMINATION: GENERAL: The patient is alert and oriented x3, not in any acute distress. Well developed, well nourished. HEENT: Pupils are round and equally reacting to light. EOMI. No scleral icterus. No conjunctival pallor. Normocephalic, atraumatic. No pharyngeal erythema. No thyromegaly. CARDIOVASCULAR: S1 and S2 present. No murmurs, rubs, or gallops. brdaycardic. regular rate and rhythm. PULMONARY: Chest is clear to auscultation, no wheezing or crackles. ABDOMEN: Soft, nontender, nondistended, normoactive bowel sounds. No palpable organomegaly. MUSCULOSKELETAL: No joint swelling or deformity. EXTREMITIES: No cyanosis, clubbing, or pedal edema. NEUROLOGICAL: Gross neurological examination did not reveal any focal deficits. SKIN: No rashes. Assessment and Plan Assessment Generalized fatigue, shortness of breath and dizziness possibly related to underlying cardiac arrhythmia History of atrial flutter/fibrillation with cardioversion. Hypertension Peripheral neuropathy weaned off gabapentin outpatient and has significant generalized body aches Constipation resolved Implantable loop recorder History of Parkinson's maintained on Sinemet History of hernia repair Prior daily ETOH use GI prophylaxis DVT prophylaxis patient is anticoagulated with xarelto Plan Medication adjusted for blood pressure control Pain management and patient has been started on cymbalta for peripheral neuropathy Avoid AV natalie blocking agents Continue Xarelto patient is scheduled for EP study with possible cardioversion on May [address] Manuel Continue telemetry Dr Byrnes to resume care of the patient in the morning. The impression and plan of care has been dictated by Jyoti Peace, Nurse Practitioner as directed. Dr. Adelfo MD I have performed a history and physical examination and medical decision making of this patient, discussed the same with the dictator, and agree with the dictators assessment and plan as written, documented as a scribe. Based on total visit time, I have performed more than 50% of this visit. Objective - Vital Signs Vital signs: Vital Signs Temp 97.8 F 05/03/22 07:10 Pulse 59 L 05/03/22 07:10 Resp 17 05/03/22 07:10 BP 153/68 05/03/22 07:10 Pulse Ox 97 05/03/22 07:10 FiO2 Intake & Output 05/02/22 05/03/22 05/03/22 17:59 06:59 18:59 Other: Voiding Method # Voids - Labs CBC & Chem 7: 04/30/22 14:17 04/30/22 15:30 Assessment and Plan Time with Patient: Less than 30
[2022-05-03] MEDS: LACTULOSE 20 GM/30 ML CUP PO SCH (20:25)
[2022-05-04] MEDS: CARBIDOPA-LEVODOPA ER 50-200MG 1 EACH TABLET.ER PO SCH ×2 (07:37→12:14)
[2022-05-04] MEDS: FAMOTIDINE 20 MG TAB PO SCH (07:38)
[2022-05-04] MEDS: amLODIPine 5 MG TAB PO SCH (07:38)
[2022-05-04] MEDS: ATORVASTATIN 10 MG TAB PO SCH (07:38)
[2022-05-04] MEDS: DULoxetine HCL 30 MG CAPSULE.DR PO SCH (07:38)
[2022-05-04] MEDS: RIVAROXABAN 20 MG TAB PO SCH (07:38)
--- NOTE | 2022-05-04 08:15 | P.PN ---
Subjective Progress Note Date: 05/04/22 Principal diagnosis: Atypical atrial flutter The patient is a pleasant 81-year-old gentleman who sees Dr. Manuel regularly with a past medical history significant for typical atrial flutter as well as atrial tachycardia who presented to the hospital with symptoms of being tired and fatigued and he was found to be bradycardic. He was scheduled as an outpatient to undergo atrial flutter ablation. 2022 The patient was seen and evaluated this morning he stated that his symptoms have somewhat slightly improved. He reports no dizziness or lightheadedness and no presyncope or syncope no symptoms of any chest pain or chest discomfort or shortness of breath. He is on oral anticoagulation which we are going to continue. The pressure remains elevated but the dose of amlodipine was increased yesterday. Beside the blood pressure which was described above the p atient has been maintaining normal sinus mechanism with a regular rhythm and clear breathing sounds bilaterally and no lower exam disease noted Assessment Typical atrial flutter Bradycardia which has improved Plan Continue the current medical regimen Continue avoiding any AV natalie olivia agents Continue oral anticoagulation Procedure was flutter ablation later on today Objective - Vital Signs Vital signs: Vital Signs Temp 98.3 F 05/04/22 07:07 Pulse 64 05/04/22 07:07 Resp 20 05/04/22 07:07 BP 167/81 05/04/22 07:07 Pulse Ox 97 05/04/22 07:07 FiO2 Intake & Output 05/03/22 05/04/22 05/04/22 18:59 06:59 18:59 Other: Voiding Method Toilet Toilet # Voids 3 4 # Bowel Movements 1 - Labs CBC & Chem 7: 04/30/22 14:17 04/30/22 15:30
--- NOTE | 2022-05-04 09:01 | P.PN ---
Subjective Progress Note Date: 05/04/22 Principal diagnosis: Shortness of breath This is an 81-year-old male who presented to the emergency room with complaints of shortness of breath and dizziness. The patient follows with Dr. Manuel as an outpatient and was scheduled to undergo cardiac ablation as an outpatient today. Patient reports he had some constipation over the weekend which has resolved after an enema. Patient seen laying in bed this morning still reporting shortness of breath, mild dizziness, and fatigue. Cardiology has been consulted and patient will still undergo ablation later today. Objective - Vital Signs Vital signs: Vital Signs Temp 98.3 F 05/04/22 07:07 Pulse 64 05/04/22 07:07 Resp 20 05/04/22 07:07 BP 167/81 05/04/22 07:07 Pulse Ox 97 05/04/22 07:07 FiO2 Intake & Output 05/03/22 05/04/22 05/04/22 18:59 06:59 18:59 Other: Voiding Method Toilet Toilet # Voids 3 4 # Bowel Movements 1 - Constitutional General appearance: Present: cooperative, no acute distress - EENT Eyes: Present: EOMI, PERRLA - Neck Neck: Present: normal ROM. Absent: lymphadenopathy, rigidity - Respiratory Respiratory: bilateral: CTA - Cardiovascular Rhythm: regular Heart sounds: normal: S1, S2 - Gastrointestinal General gastrointestinal: Present: soft. Absent: tenderness - Integumentary Integumentary: Present: normal, normal turgor - Psychiatric Psychiatric: Present: A&O x's 3, appropriate affect, intact judgment & insight - Labs CBC & Chem 7: 04/30/22 14:17 04/30/22 15:30 Assessment and Plan (1) Atrial fibrillation and flutter Current Visit: Yes Status: Acute Code(s): I48.91 - UNSPECIFIED ATRIAL FIBRILLATION; I48.92 - UNSPECIFIED ATRIAL FLUTTER SNOMED Code(s): 243607841 (2) Dyspnea Current Visit: Yes Status: Acute Code(s): R06.00 - DYSPNEA, UNSPECIFIED SNOMED Code(s): 723010610 (3) Palpitations Current Visit: Yes Status: Acute Code(s): R00.2 - PALPITATIONS SNOMED Code(s): 53994678 (4) Hypertension Current Visit: Yes Status: Acute Code(s): I10 - ESSENTIAL (PRIMARY) HYPERTENSION SNOMED Code(s): 99832405 (5) Fatigue Current Visit: Yes Status: Acute Code(s): R53.83 - OTHER FATIGUE SNOMED Code(s): 37332322 Plan: Planned for ablation today and await results. Appreciate cardiology consult. Patient seen and evaluated by nurse practitioner, physician in agreement with plan
[2022-05-04] MEDS ORDERED: SUCCINYLCHOLINE CHLORIDE 200 MG/10 ML VIAL IV ONE (15:23)
[2022-05-04] MEDS ORDERED: PROPOFOL 10 MG/ML 20 ML VIAL IV ONE (15:23)
[2022-05-04] MEDS ORDERED: LIDOCAINE 2% INJ 20 MG/ML (2 ML VIAL) ONE (15:23)
[2022-05-04] MEDS ORDERED: IV FLUID CONTINUATION 1,000 ML IV ONE (15:23)
[2022-05-04] MEDS ORDERED: HEPARIN SODIUM,PORCINE 10,000 UNIT/ML 1 ML VIAL ONE (15:23)
[2022-05-04] MEDS ORDERED: fentaNYL (PF) 50 MCG/ML 2 ML AMP ONE (15:23)
[2022-05-04] MEDS ORDERED: LIDOCAINE 1% INJ 10MG/ML (30 ML VIAL-PF) SQ ONE (16:10)
[2022-05-04] MEDS ORDERED: HEPARIN SOD,PORK IN 0.45% NACL 25,000 UNIT in 0.45% NACL 1 250ML.BAG IV ONE (16:10)
[2022-05-04] MEDS ORDERED: HEPARIN SODIUM (1,000 UNIT/ML) 1,000 UNIT in SODIUM CHLORIDE 0.9% 1,000 ML IRRIGATION ONE (16:42)
[2022-05-04] MEDS ORDERED: IOPAMIDOL-370 100ML BTL INJ ONE (18:55)
[2022-05-04] MEDS ORDERED: ACETAMINOPHEN TAB 325 MG TAB PO PRN (19:10)
--- NOTE | 2022-05-04 19:20 | P.EPPROC ---
- EP Procedure Note Electrophysiology Procedure Note: PROCEDURE A. fib ablation Atrial flutter ablation DIAGNOSIS Atrial fibrillation, symptomatic, refractory to therapy Atrial flutter, recurrent and symptomatic with RVR Underlying sick sinus syndrome and sinus bradycardia with left bundle branch block morphology on twelve-lead EKG RESULT No left atrial appendage mass seen on intracardiac echo, small pericardial effusion with mild thickening of the pericardium at the base of the LV Successful A. fib ablation/pulmonary vein isolation of all veins using cryo- ablation Complete entrance block in all 4 veins confirmed No evidence for phrenic nerve injury Esophageal deflection YES, left-sided esophagus Successful atrial flutter ablation with bidirectional block PROCEDURE DETAILS Written informed consent prior to procedure. Patient brought to the EP lab. General anesthesia given. Heparin administered. A city maintained above 300 se conds Both groins prepped and draped per protocol and venous sheaths placed. Esophagus intubated, circa catheter for temperature monitoring an endoscope for possible esophageal deflection. Phrenic nerve monitoring performed. Esophageal temperature monitoring performed. Esophageal deflection performed if circa catheter overlapping with the balloon or circa temperature less than 27.5C Intracardiac echocardiography performed. Pericardium evaluated. Left atrial appendage evaluated. Left atrium evaluated along with pulmonary veins Transseptal catheterization performed under fluoroscopic guidance and intracardiac echo guidance Cryoablation sheath exchanged, balloon catheter along with achieve catheter placed in the left atrium. Pulmonary veins isolated in the following sequence: Left superior pulmonary vein followed by left inferior pulmonary vein, followed by right inferior pulmonary vein and lastly right superior pulmonary vein. Phrenic nerve stimulation along with capture thresholds within the SVC and right superior pulmonary vein to identify the phrenic nerve proximity to the cryo- balloon. Pulmonary veins isolated and confirmed with entrance and exit block. Phrenic nerve integrity confirmed at the end of the procedure Diagnostic catheters for the high right atrium, His bundle, coronary sinus placed. LA and RA pressures recorded RA pressure: 18/12/15 LA pressure: 14/7/10 Diagnostic EP study with coronary sinus pacing and recording Baseline measurements: Sinus cycle length 900 ms, W[place] interval 187 ms, QRS 170 ms and QT interval 442 ms AH 65 and HV 60 ms Sinus recovery times at a pacing cycle length of 600 ms was 1413 ms. Corresponding corrected sinus node recovery time was prolonged AV node Wenckebach block 360 ms Venous sheaths were removed and hemostasis assured with a closure device. Patient extubated and transferred to recovery Increase procedural time During ablation multiple attempts had to be made to move the esophagus a safe distance of the from the pulmonary vein draining cryoablation, to avoid excessive thermal cooling of the esophagus This took extra time and effort to keep the esophagus a safe distance away from the cryoablation balloon. During ablation of the right-sided veins, phrenic nerve stimulation was noted within the right-sided veins. The cryo balloon in close proximity to this location, during standard technique for occlusion of the vein, posing a risk to the phrenic nerve. Therefore the balloon was repositioned around the antrum in a roving fashion to isolate the vein at an extra ostial level to minimize the risk of phrenic nerve injury. The right-sided veins were completely and successfully isolated with this extra effort Atrial flutter ablation Sheaths were placed in the right atrium RF ablation was performed in the cavo tricuspid isthmus. This is defined with intracardiac echo. The patient had a very long cavo tricuspid isthmus Complete line of block was made with the RF ablation catheter and a fixed curve sheath for stability This line was completed anatomically Thereafter this was interrogated with pacing maneuvers. The differential pacing complete bidirectional block was proven PROCEDURES PERFORMED Diagnostic EP study CS pacing and recording Left and right transseptal catheterization Catheter the mapping of the tachycardia Intracardiac echocardiography Pulmonary vein isolation with transseptal and comprehensive EPS, [id number] Atrial flutter ablation
--- NOTE | 2022-05-04 19:26 | P.PRLE ---
RE: Denton Mike Dear Yared Denton Underwent successful pulmonary isolation for management of atrial fibrillation He also underwent atrial flutter ablation for typical atrial flutter with RVR As you know he has sick sinus syndrome with underlying left bundle branch block pattern and is unable to tolerate any AV node blocking drugs He is also quite constipated and is on a small dose of amlodipine If possible one could consider using an angiotensin receptor olivia or AURELIA inhibitor in place of amlodipine although it is a very low-dose and is quite unlikely to be the cause of his constipation He will continue Xarelto 20 mg by mouth daily lifelong for stroke prophylaxis Thank you for entrusting me with the care of the patient Warm regards Sincerely José Luis Manuel
[2022-05-04] MEDS: ENALAPRILAT 1.25 MG/ML 1 ML VIAL IVP ONE ×2 (19:27→19:48)
[2022-05-04] MEDS: LACTULOSE 20 GM/30 ML CUP PO SCH (22:01)
[2022-05-04 23:32] VITALS: RESP 17
[2022-05-05 07:41] VITALS: BP 151/74; PULSE 75; TEMP 97.8
[2022-05-05] MEDS: amLODIPine 5 MG TAB PO SCH (08:19)
[2022-05-05] MEDS: CARBIDOPA-LEVODOPA ER 50-200MG 1 EACH TABLET.ER PO SCH ×2 (08:19→12:35)
[2022-05-05] MEDS: RIVAROXABAN 20 MG TAB PO SCH (08:19)
[2022-05-05] MEDS: DULoxetine HCL 30 MG CAPSULE.DR PO SCH (08:19)
[2022-05-05] MEDS: FAMOTIDINE 20 MG TAB PO SCH (08:19)
[2022-05-05] MEDS: ATORVASTATIN 10 MG TAB PO SCH (08:19)
--- NOTE | 2022-05-05 08:26 | P.PN ---
Subjective Progress Note Date: 05/05/22 Principal diagnosis: Atypical atrial flutter The patient is a pleasant 81-year-old gentleman who sees Dr. Manuel regularly with a past medical history significant for typical atrial flutter as well as atrial tachycardia who presented to the hospital with symptoms of being tired and fatigued and he was found to be bradycardic. He was scheduled as an outpatient to undergo atrial flutter ablation. [id number] The patient was seen and evaluated this morning he stated that his symptoms have somewhat slightly improved. He reports no dizziness or lightheadedness and no presyncope or syncope no symptoms of any chest pain or chest discomfort or shortness of breath. He is on oral anticoagulation which we are going to continue. The pressure remains elevated but the dose of amlodipine was increased yesterday. Beside the blood pressure which was described above the p atient has been maintaining normal sinus mechanism with a regular rhythm and clear breathing sounds bilaterally and no lower exam disease noted May [id number] The patient was seen and evaluated this morning. He underwent atrial fibrillation ablation yesterday with pulmonary vein as ablation using a cryo-and the procedure was successful. He was seen this morning. He is feeling somewhat better. No chest pain. No shortness of breath. The right and left groin are soft and nontender was no bruises. He continues to be on oral anticoagulation. On examination he does have irregular rhythm was clear breathing sounds bilaterally and no lower extremities edema noted. Assessment Typical atrial flutter/paroxysmal atrial fibrillation status post ablation Bradycardia which has improved Plan Continue the current medical regimen Continue oral anticoagulation Objective - Vital Signs Vital signs: Vital Signs Temp 97.8 F 05/05/22 07:02 Pulse 75 05/05/22 07:02 Resp 17 05/05/22 07:02 BP 151/74 05/05/22 07:02 Pulse Ox 97 05/05/22 07:02 FiO2 Intake & Output 05/04/22 05/05/22 05/05/22 18:59 06:59 18:59 Intake Total 934 50 Output Total 1200 Balance 934 -1150 Intake: IV 934 50 Output: Urine 1200 Other: Voiding Method Toilet Indwelling Catheter - Labs CBC & Chem 7: 04/30/22 14:17 04/30/22 15:30
--- NOTE | 2022-05-05 08:32 | P.DS ---
Providers Date of admission: 05/01/22 11:30 Attending physician: aYred Byrnes Consults: 04/30/22 15:21 Consult Physician Urgent Consulting Provider: José Luis Manuel Consult Reason/Comments: Palpitations, dyspnea Do you want consulting provider notified?: Yes Primary care physician: Yared Byrnes [facility] Course: Patient is doing well from a cardiac standpoint. He denies any chest discomfort dizziness lightheadedness palpitations However he has not sat on a chair walk around the room His groins of healed well There is no hematoma no swelling in either groin No bruits No tenderness in the groins On examination heart sounds S1 and S2 are normal Breath sounds are clear Blood pressure is still elevated His dose of amlodipine was increased to 5 mg daily over the weekend He does have Parkinson's disease Impression Typical atrial flutter with RVR status post successful ablation Paroxysmal atrial fibrillation status post cryoablation of the pulmonary veins, complete isolation of the veins Left bundle branch block Hypertension, amlodipine dose increased to 5 mg daily over the weekend Normal cardiac enzymes, normal electrolytes, normal TSH LDL 62, total [place] 121 Plan From an electrophysiology standpoint patient may go home today and follow-up with Dr. Manuel in the next 2 weeks Continue anticoagulation with xarelto 20 mg daily, continue rosuvastatin 5 mg by mouth daily Hypertension management, maximize therapy as needed as an outpatient after 2 weeks Ambulate in the [facility] Plan - Discharge Summary New Discharge Prescriptions: No Action amLODIPine [Norvasc] 2.5 mg PO DAILY Rosuvastatin Calcium 5 mg PO DAILY Lactulose 20 gm PO HS Carbidopa-Levodopa ER 50-200Mg [Sinemet CR 50-200 mg] 1 tab PO BID@0800,1300 Rivaroxaban [Xarelto] 20 mg PO W/SUPPER Discharge Medication List Rivaroxaban [Xarelto] 20 mg PO W/SUPPER 02/27/21 [History] Rosuvastatin Calcium 5 mg PO DAILY 04/24/22 [History] amLODIPine [Norvasc] 2.5 mg PO DAILY 04/24/22 [History] Carbidopa-Levodopa ER 50-200Mg [Sinemet CR 50-200 mg] 1 tab PO BID@0800,1300 04/30/22 [History] Lactulose 20 gm PO HS 04/30/22 [History] Follow up Appointment(s)/Referral(s): Yared Byrnes MD [Primary Care Provider] - 1-2 days
--- NOTE | 2022-05-05 08:55 | P.DS ---
Providers Date of admission: 05/01/22 11:30 Attending physician: Yared Byrnes Consults: 04/30/22 15:21 Consult Physician Urgent Consulting Provider: José Luis Manuel Consult Reason/Comments: Palpitations, dyspnea Do you want consulting provider notified?: Yes Primary care physician: Yared Byrnes - Discharge Diagnosis(es) (1) Atrial fibrillation and flutter Current Visit: Yes Status: Acute (2) Dyspnea Current Visit: Yes Status: Acute (3) Palpitations Current Visit: Yes Status: Acute (4) Hypertension Current Visit: Yes Status: Acute (5) Fatigue Current Visit: Yes Status: Acute Hospital Course: This is an 81-year-old male who was admitted after complaints of shortness of breath and dizziness. Yesterday patient underwent cardiac ablation with Dr. Manuel successfully. He is feeling well today is ready to go home this afternoon. He is tolerating diet and constipation has improved. He will follow up with Dr. Byrnes and [address] Manuel in 2 weeks. Amlodipine was increased to 5 mg by cardiology over the weekend, will continue that at home. Patient seen and evaluated by nurse practitioner, physician in agreement with plan Plan - Discharge Summary New Discharge Prescriptions: New amLODIPine [Norvasc] 5 mg PO DAILY 30 Days #30 tab Continue Rosuvastatin Calcium 5 mg PO DAILY Lactulose 20 gm PO HS Carbidopa-Levodopa ER 50-200Mg [Sinemet CR 50-200 mg] 1 tab PO BID@0800,1300 Rivaroxaban [Xarelto] 20 mg PO W/SUPPER Discontinued amLODIPine [Norvasc] 2.5 mg PO DAILY Discharge Medication List Rivaroxaban [Xarelto] 20 mg PO W/SUPPER 02/27/21 [History] Rosuvastatin Calcium 5 mg PO DAILY 04/24/22 [History] Carbidopa-Levodopa ER 50-200Mg [Sinemet CR 50-200 mg] 1 tab PO BID@0800,1300 04/30/22 [History] Lactulose 20 gm PO HS 04/30/22 [History] amLODIPine [Norvasc] 5 mg PO DAILY 30 Days #30 tab 05/05/22 [Rx] Follow up Appointment(s)/Referral(s): José Luis Manuel MD [STAFF PHYSICIAN] - 2 Weeks Yared Byrnes MD [Primary Care Provider] - 1 Week Discharge Disposition: HOME SELF-CARE
== END 2022-05-05 13:26 | disposition home or self-care (01) | DRG 229 ==
LOC: EC 13:33 → 6NMEDSUR 15:23 → OBSVTOIN 05-01 11:30 → 4SSUR 05-02 07:32
PROVIDERS: ADMIT Family Medicine; ATTEND Family Medicine
PROC: B24BYZZ Ultrasonography of Heart with Aorta using Other Contrast (ICD-10-PCS; 2022-05-04)
PROC: 4A023FZ Measurement of Cardiac Rhythm, Percutaneous Approach (ICD-10-PCS; 2022-05-04)
PROC: 4A0234Z Measurement of Cardiac Electrical Activity, Percutaneous Approach (ICD-10-PCS; 2022-05-04)
PROC: 025 Heart and Great Vessels, Destruction (ICD-10-PCS; principal; 2022-05-04 15:30)
PROC: 02583ZZ Destruction of Conduction Mechanism, Percutaneous Approach (ICD-10-PCS; 2022-05-04 15:30)
DX: I48.4 Atypical atrial flutter (principal); I31.39 Other pericardial effusion (noninflammatory); I42.1 Obstructive hypertrophic cardiomyopathy; I49.5 Sick sinus syndrome; G20 Parkinson's disease; I08.3 Combined rheumatic disorders of mitral, aortic and tricuspid valves; I10 Essential (primary) hypertension; I44.7 Left bundle-branch block, unspecified; I48.0 Paroxysmal atrial fibrillation; I48.3 Typical atrial flutter; K59.00 Constipation, unspecified; R53.83 Other fatigue; G62.9 Polyneuropathy, unspecified; M48.14 Ankylosing hyperostosis [Forestier], thoracic region; F10.91 Alcohol use, unspecified, in remission; I49.9 Cardiac arrhythmia, unspecified; Z95.818 Presence of other cardiac implants and grafts; Z86.16 Personal history of COVID-19; Z79.899 Other long term (current) drug therapy; Z79.01 Long term (current) use of anticoagulants; Z79.891 Long term (current) use of opiate analgesic; Z82.49 Family history of ischemic heart disease and other diseases of the circulatory system
CPT/HCPCS: 36415; 71046; 80053; 80061; 83735; 84443; 84484; 85025; 85610; 85730; 93005; 93308; 93656; 93657; 94760; 99285

== ENCOUNTER 2022-05-06 14:05 | Inpatient (IN) | payer MEDICARE ==
[2022-05-06] MEDS ORDERED: SODIUM CHLORIDE 0.9% 500 ML 500 ML IV STA (15:11)
--- NOTE | 2022-05-06 15:17 | ED ---
General Adult HPI - General Chief complaint: Weakness Stated complaint: Recheck Time Seen by Provider: 05/06/22 14:38 Source: patient, RN notes reviewed Mode of arrival: wheelchair Limitations: no limitations - History of Present Illness Initial comments: Patient is a pleasant 81-year-old male presenting to the emergency Department with general fatigue and weakness. Onset of symptoms was yesterday. Patient did have cardiac ablation done the day before. Patient states he was nothing by mouth all day and procedure was not done to 5 PM. Patient feels he may be dehydrated. No chest pain or dyspnea. No isolated area of weakness. - Related Data Home Medications Medication Instructions Recorded Confirmed Rivaroxaban [Xarelto] 20 mg PO W/SUPPER 02/27/21 05/06/22 Rosuvastatin Calcium 5 mg PO DAILY 04/24/22 05/06/22 Carbidopa-Levodopa ER 50-200Mg 1 tab PO BID@0800,1300 04/30/22 05/06/22 [Sinemet CR 50-200 mg] Lactulose 20 gm PO HS 04/30/22 05/06/22 Previous Rx's Medication Instructions Recorded amLODIPine [Norvasc] 5 mg PO DAILY 30 Days #30 tab 05/05/22 Allergies Allergy/AdvReac Type Severity Reaction Status Date / Time No Known Allergies Allergy Verified 05/06/22 16:39 Review of Systems ROS Statement: Those systems with pertinent positive or pertinent negative responses have been documented in the HPI. ROS Other: All systems not noted in ROS Statement are negative. Constitutional: Denies: fever, chills Eyes: Denies: eye pain ENT: Denies: ear pain Respiratory: Denies: cough, dyspnea Cardiovascular: Denies: chest pain Endocrine: Reports: fatigue Gastrointestinal: Denies: abdominal pain Genitourinary: Denies: urgency Musculoskeletal: Denies: back pain Skin: Denies: rash Neurological: Denies: weakness Past Medical History Past Medical History: Atrial Fibrillation, Neurologic Disorder Additional Past Medical History / Comment(s): COVID .HAS LOOP RECORDER. Arthritic spinal disc disease. See Dr Manuel's H&P, SOB. parkinson's , peripheral NEUROPATHY. History of Any Multi-Drug Resistant Organisms: None Reported Past Surgical History: Cardiac Ablation, Hernia Repair, Prostate Surgery Additional Past Surgical History / Comment(s): double inguinal hernia repair Past Anesthesia/Blood Transfusion Reactions: No Reported Reaction Past Psychological History: No Psychological Hx Reported Smoking Status: Never smoker Past Alcohol Use History: None Reported Past Drug Use History: None Reported - Past Family History Mother Family Medical History: Myocardial Infarction (NM) Father Family Medical History: Myocardial Infarction (NM) General Exam Limitations: no limitations General appearance: alert, in no apparent distress Head exam: Present: atraumatic, normocephalic Eye exam: Present: normal appearance, PERRL, EOMI ENT exam: Present: normal oropharynx Neck exam: Present: normal inspection. Absent: tenderness Respiratory exam: Present: normal lung sounds bilaterally Cardiovascular Exam: Present: regular rate, normal rhythm Expanded Peripheral pulses: 2+: Radial (R), Radial (L), Dorsalis Pedis (R), Dorsalis Pedis (L) GI/Abdominal exam: Present: soft. Absent: tenderness Extremities exam: Present: normal inspection. Absent: pedal edema, calf tenderness Neurological exam: Present: alert, oriented X3, CN II-XII intact. Absent: motor sensory deficit Expanded Neurological exam: Present: protecting the airway Speech: Present: fluid speech Cranial nerves: EOM's Intact: Normal Motor strength exam: RUE: 5, LUE: 5, RLE: 5, LLE: 5 Eye Response: (4) open spontaneously Motor Response: (6) obeys commands Verbal Response: (5) oriented Psychiatric exam: Present: normal affect, normal mood Skin exam: Present: normal color Course Vital Signs 05/06/22 05/06/22 05/06/22 14:21 14:48 14:51 Temperature 98.0 F Pulse Rate 91 86 Pulse Rate [ 85 Cold Meat Cook ] Respiratory 20 16 Rate Blood Pressure 149/88 146/90 O2 Sat by Pulse 99 96 Oximetry 05/06/22 16:51 Temperature Pulse Rate 82 Pulse Rate [ Cold Meat Cook ] Respiratory 17 Rate Blood Pressure 160/88 O2 Sat by Pulse 96 Oximetry EKG Findings - EKG Results: EKG: interpreted by ERMD ((This. Left bundle branch block. Nonspecific ST-T.), sinus rhythm Medical Decision Making - Medical Decision Making Was pt. sent in by a medical professional or institution (, PA, ASSEM[employer], urgent care, hospital, or [facility]...) When possible be specific @ -No Did you speak to anyone other than the patient for history (EMS, parent, family, police, friend...)? What history was obtained from this source @ -Family is present and helps provide history Did you review nursing and triage notes (agree or disagree)? Why? @ -I reviewed and agree with nursing and triage notes Were old charts reviewed (outside hosp., previous admission, EMS record, old EKG, old radiological studies, urgent care reports/EKG's, [facility] records)? Report findings @ -No old charts were reviewed Differential Diagnosis (chest pain, altered mental status, abdominal pain women, abdominal pain men, vaginal bleeding, weakness, fever, dyspnea, syncope, headache, dizziness, GI bleed, back pain, seizure, CVA, palpatations, mental health)? @ -[Differential Weakness: Hypoglycemia, shock, sepsis, hyponatremia, anemia, infection, NM, ETOH, adverse medicine reaction, overdose, stroke, this is not meant to be an all-inclusive list. EKG interpreted by me (3pts min.). @ -As above X-rays interpreted by me (1pt min.). @ -Chest x-ray shows no acute process CT interpreted by me (1pt min.). @ -None done U/S interpreted by me (1pt. min.). @ -None done What testing was considered but not performed or refused? (CT, X-rays, U/S, labs)? Why? @ -None What meds were considered but not given or refused? Why? @ -None Did you discuss the management of the patient with other professionals (professionals i.e. , PA, ASSEM[employer], lab, RT, psych nurse, manager social services, deaf and hard of hearing teacher, teacher, quarantine officer, child welfare caseworker)? Give summary @ -Case was discussed with Dr. Byrnes who will admit his patient. Case also discussed with Dr. Biswas Was smoking cessation discussed for >3mins.? @ -No Was critical care preformed (if so, how long)? @ -No Were there social determinants of health that impacted care today? How? (Homelessness, low income, unemployed, alcoholism, drug addiction, transportation, low edu. Level, literacy, decrease access to med. care, [facility], rehab)? @ -No Was there de-escalation of care discussed even if they declined (Discuss DNR or withdrawal of care, Hospice)? DNR status @ -No What co-morbidities impacted this encounter? (DM, HTN, Smoking, COPD, CAD, Cancer, CVA, ARF, Chemo, Hep., AIDS, mental health diagnosis, sleep apnea, morbid obesity)? @ -None Was patient admitted / discharged? Hospital course, mention meds given and route, prescriptions, significant lab abnormalities, going to OR and other pertinent info. @ -Patient reevaluated. Patient family updated. Patient will be admitted for saline administration secondary to hyponatremia and cardiac observation. Elevated troponin is likely from recent cardiac ablation. Undiagnosed new problem with uncertain prognosis? @ -No Drug Therapy requiring intensive monitoring for toxicity (Heparin, Nitro, Ins ulin, Cardizem)? @ -No Were any procedures done? @ -No Diagnosis/symptom? @ -Hyponatremia Acute, or Chronic, or Acute on Chronic? @ -Acute Uncomplicated (without systemic symptoms) or Complicated (systemic symptoms)? @ -default Side effects of treatment? @ -No Exacerbation, Progression, or Severe Exacerbation? @ -No Poses a threat to life or bodily function? How? (Chest pain, USA, NM, pneumonia, PE, COPD, DKA, ARF, appy, cholecystitis, CVA, Diverticulitis, Homicidal, Suicidal, threat to staff... and all critical care pts) @ -No - Lab Data Result diagrams: 05/06/22 15:18 05/06/22 15:18 Lab Results 05/06/22 05/06/22 05/06/22 Range/Units 15:18 15:18 15:18 WBC 10.2 (3.8-10.6) k/uL RBC 4.93 (4.30-5.90) m/uL Hgb 15.5 (13.0-17.5) gm/dL Hct 44.8 (39.0-53.0) % MCV 91.0 (80.0-100.0) fL MCH 31.4 (25.0-35.0) pg MCHC 34.5 (31.0-37.0) g/dL RDW 12.2 (11.5-15.5) % Plt Count 168 (150-450) k/uL MPV 7.8 Neutrophils % 83 % Lymphocytes % 6 % Monocytes % 8 % Eosinophils % 0 % Basophils % 0 % Neutrophils # 8.5 H (1.3-7.7) k/uL Lymphocytes # 0.7 L (1.0-4.8) k/uL Monocytes # 0.8 (0-1.0) k/uL Eosinophils # 0.0 (0-0.7) k/uL Basophils # 0.0 (0-0.2) k/uL PT 10.1 (9.0-12.0) sec INR 0.9 (<1.2) APTT 26.2 (22.0-30.0) sec Sodium 126 L (137-145) mmol/L Potassium 3.8 (3.5-5.1) mmol/L Chloride 93 L (98-107) mmol/L Carbon Dioxide 24 (22-30) mmol/L Anion Gap 9 mmol/L BUN 18 (9-20) mg/dL Creatinine 0.62 L (0.66-1.25) mg/dL Est GFR (CKD-EPI)AfAm >90 (>60 ml/min/1.73 sqM) Est GFR (CKD-EPI)NonAf >90 (>60 ml/min/1.73 sqM) Glucose 115 H (74-99) mg/dL Plasma Lactic Acid Eric (0.7-2.0) mmol/L Calcium 8.3 L (8.4-10.2) mg/dL Magnesium 1.8 (1.6-2.3) mg/dL Total Bilirubin 1.4 H (0.2-1.3) mg/dL AST 41 (17-59) U/L ALT 9 (4-49) U/L Alkaline Phosphatase 57 (38-126) U/L Troponin I (0.000-0.034) ng/mL NT-Pro-B Natriuret Pep pg/mL Total Protein 6.8 (6.3-8.2) g/dL Albumin 4.0 (3.5-5.0) g/dL TSH 0.856 (0.465-4.680) mIU/L Free T4 1.94 (0.78-2.19) ng/dL Free T3 pg/mL 3.4 (2.8-5.3) pg/ml Influenza Type A (PCR) (Not Detectd) Influenza Type B (PCR) (Not Detectd) RSV (PCR) (Not Detectd) SARS-CoV-2 (PCR) (Not Detectd) 05/06/22 05/06/22 05/06/22 Range/Units 15:18 15:18 15:18 WBC (3.8-10.6) k/uL RBC (4.30-5.90) m/uL Hgb (13.0-17.5) gm/dL Hct (39.0-53.0) % MCV (80.0-100.0) fL MCH (25.0-35.0) pg MCHC (31.0-37.0) g/dL RDW (11.5-15.5) % Plt Count (150-450) k/uL MPV Neutrophils % % Lymphocytes % % Monocytes % % Eosinophils % % Basophils % % Neutrophils # (1.3-7.7) k/uL Lymphocytes # (1.0-4.8) k/uL Monocytes # (0-1.0) k/uL Eosinophils # (0-0.7) k/uL Basophils # (0-0.2) k/uL PT (9.0-12.0) sec INR (<1.2) APTT (22.0-30.0) sec Sodium (137-145) mmol/L Potassium (3.5-5.1) mmol/L Chloride (98-107) mmol/L Carbon Dioxide (22-30) mmol/L Anion Gap mmol/L BUN (9-20) mg/dL Creatinine (0.66-1.25) mg/dL Est GFR (CKD-EPI)AfAm (>60 ml/min/1.73 sqM) Est GFR (CKD-EPI)NonAf (>60 ml/min/1.73 sqM) Glucose (74-99) mg/dL Plasma Lactic Acid Eric 1.2 (0.7-2.0) mmol/L Calcium (8.4-10.2) mg/dL Magnesium (1.6-2.3) mg/dL Total Bilirubin (0.2-1.3) mg/dL AST (17-59) U/L ALT (4-49) U/L Alkaline Phosphatase (38-126) U/L Troponin I (0.000-0.034) ng/mL NT-Pro-B Natriuret Pep 375 pg/mL Total Protein (6.3-8.2) g/dL Albumin (3.5-5.0) g/dL TSH (0.465-4.680) mIU/L Free T4 (0.78-2.19) ng/dL Free T3 pg/mL (2.8-5.3) pg/ml Influenza Type A (PCR) Not Detected (Not Detectd) Influenza Type B (PCR) Not Detected (Not Detectd) RSV (PCR) Not Detected (Not Detectd) SARS-CoV-2 (PCR) Not Detected (Not Detectd) 05/06/22 Range/Units 15:18 WBC (3.8-10.6) k/uL RBC (4.30-5.90) m/uL Hgb (13.0-17.5) gm/dL Hct (39.0-53.0) % MCV (80.0-100.0) fL MCH (25.0-35.0) pg MCHC (31.0-37.0) g/dL RDW (11.5-15.5) % Plt Count (150-450) k/uL MPV Neutrophils % % Lymphocytes % % Monocytes % % Eosinophils % % Basophils % % Neutrophils # (1.3-7.7) k/uL Lymphocytes # (1.0-4.8) k/uL Monocytes # (0-1.0) k/uL Eosinophils # (0-0.7) k/uL Basophils # (0-0.2) k/uL PT (9.0-12.0) sec INR (<1.2) APTT (22.0-30.0) sec Sodium (137-145) mmol/L Potassium (3.5-5.1) mmol/L Chloride (98-107) mmol/L Carbon Dioxide (22-30) mmol/L Anion Gap mmol/L BUN (9-20) mg/dL Creatinine (0.66-1.25) mg/dL Est GFR (CKD-EPI)AfAm (>60 ml/min/1.73 sqM) Est GFR (CKD-EPI)NonAf (>60 ml/min/1.73 sqM) Glucose (74-99) mg/dL Plasma Lactic Acid Eric (0.7-2.0) mmol/L Calcium (8.4-10.2) mg/dL Magnesium (1.6-2.3) mg/dL Total Bilirubin (0.2-1.3) mg/dL AST (17-59) U/L ALT (4-49) U/L Alkaline Phosphatase (38-126) U/L Troponin I 4.750 H* (0.000-0.034) ng/mL NT-Pro-B Natriuret Pep pg/mL Total Protein (6.3-8.2) g/dL Albumin (3.5-5.0) g/dL TSH (0.465-4.680) mIU/L Free T4 (0.78-2.19) ng/dL Free T3 pg/mL (2.8-5.3) pg/ml Influenza Type A (PCR) (Not Detectd) Influenza Type B (PCR) (Not Detectd) RSV (PCR) (Not Detectd) SARS-CoV-2 (PCR) (Not Detectd) Disposition Clinical Impression: Hyponatremia Disposition: ADMITTED IP TO THIS HOSP Is patient prescribed a controlled substance at d/c from ED?: No Referrals: Yared Byrnes MD [Primary Care Provider] - 1-2 days Time of Disposition: 17:35
[2022-05-06 15:47] LABS: Basophils % (A) 0 %; Eosinophils % (A) 0 %; HCT 44.8 % (39.0-53.0); HGB 15.5 gm/dL (13.0-17.5); Lymphocytes # (A) 0.7 k/uL (1.0-4.8); Lymphocytes % (A) 6 %; MCH 31.4 pg (25.0-35.0); MCHC 34.5 g/dL (31.0-37.0); Mean Platelet Volume 7.8; Monocytes # (A) 0.8 k/uL (0-1.0); Monocytes % (A) 8 %; Neutrophils # (A) 8.5 k/uL (1.3-7.7); Neutrophils % (A) 83 %; Platelet Count 168 k/uL (150-450); RBC 4.93 m/uL (4.30-5.90); RDW 12.2 % (11.5-15.5); WBC 10.2 k/uL (3.8-10.6)
[2022-05-06 15:51] LABS: INR 0.9 (<1.2); Partial Thromboplastin Time 26.2 sec (22.0-30.0); Prothrombin Time 10.1 sec (9.0-12.0)
[2022-05-06 15:53] LABS: ALT 9 U/L (4-49); AST 41 U/L (17-59); African American GFR (CKD) >90 (>60 ml/min/1.73 sqM); Alkaline Phosphatase 57 U/L (38-126); Anion Gap 9 mmol/L; Blood Urea Nitrogen 18 mg/dL (9-20); Calcium 8.3 mg/dL (8.4-10.2); Carbon Dioxide 24 mmol/L (22-30); Chloride 93 mmol/L (98-107); Glucose 115 mg/dL (74-99); Magnesium 1.8 mg/dL (1.6-2.3); Non-African American GFR(CKD) >90 (>60 ml/min/1.73 sqM); Potassium 3.8 mmol/L (3.5-5.1); Sodium 126 mmol/L (137-145); Total Bilirubin 1.4 mg/dL (0.2-1.3); Total Protein 6.8 g/dL (6.3-8.2)
--- NOTE | 2022-05-06 15:56 | XR ---
EXAMINATION TYPE: XR chest 2V DATE OF EXAM: 05/06/2022 COMPARISON: 04/30/2022 HISTORY: 81-year-old male with weakness TECHNIQUE: AP and lateral views FINDINGS: Loop recorder device projects along the left side of the heart. Heart upper limits of normal in size. Mild tortuosity/ectasia of the thoracic aorta. Some strandy atelectasis in the lower lungs. No conso lidation or pleural effusion. Within the mid and lower thoracic spine. IMPRESSION: Strandy lower lung atelectasis. Borderline heart size. No definite acute process.
[2022-05-06 16:09] LABS: T4, Free (Free Thyroxine) 1.94 ng/dL (0.78-2.19)
[2022-05-06] MEDS ORDERED: NALOXONE 0.4 MG/ML 1 ML VIAL IV PRN (17:36)
[2022-05-06] MEDS ORDERED: ACETAMINOPHEN TAB 325 MG TAB PO PRN (17:36)
[2022-05-06] MEDS: SODIUM CHLORIDE 0.9% 1,000 ML IV SCH (17:52)
[2022-05-06 18:42] LABS: Appearance,Urine Clear (Clear); Bilirubin,Urine Negative (Negative); Blood,Urine Large (Negative); Color,Urine Yellow; Glucose,Urine (UA) 1+ (Negative); Leukocyte Esterase,Urine Negative (Negative); Mucus,Urine Occasional /hpf; Nitrite,Urine Negative (Negative); PH, Urine 6.5 (5.0-8.0); Protein,Urine Trace (Negative); RBC,Urine 88 /hpf (0-5); Specific Gravity,Urine 1.019 (1.001-1.035); Squamous Epithelial Cell,Urine <1 /hpf (0-4); WBC,Urine 2 /hpf (0-5)
[2022-05-06 18:53] LABS: Ketones,Urine 2+ (Negative)
[2022-05-06] MEDS: FAMOTIDINE 20 MG TAB PO SCH (20:37)
--- NOTE | 2022-05-07 08:32 | P.HPIM ---
History of Present Illness H&P Date: 05/07/22 Chief Complaint: Weakness This is an 81-year-old male who presented to the emergency room with fatigue and weakness. Earlier this week patient had a cardiac ablation and was nothing by mouth most of the day prior to the procedure was delayed until 5 PM. Patient reports after procedure he had to lay in bed flat and was not able to eat. Patient reports he has not had much of an appetite the last several days, unsure of fluid intake. He is seen this morning laying on structure, does report some fatigue still. Repeat CMP is pending at time of dictation. Medical history as noted below. Review of Systems Constitutional: Reports fatigue, Reports weakness, Denies chills, Denies fever Cardiovascular: Denies chest pain, Denies dyspnea on exertion Respiratory: Denies cough, Denies dyspnea Gastrointestinal: Denies constipation, Denies diarrhea Musculoskeletal: Denies arm numbness/tingling, Denies leg numbness/tingling Neurological: Reports weakness Past Medical History Past Medical History: Atrial Fibrillation, Neurologic Disorder Additional Past Medical History / Comment(s): 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 Arthritic spinal disc disease. See Dr Manuel's H&P, SOB. parkinson's , peripheral NEUROPATHY. History of Any Multi-Drug Resistant Organisms: None Reported Past Surgical History: Cardiac Ablation, Hernia Repair, Prostate Surgery Additional Past Surgical History / Comment(s): double inguinal hernia repair Past Anesthesia/Blood Transfusion Reactions: No Reported Reaction Past Psychological History: No Psychological Hx Reported Smoking Status: Never smoker Past Alcohol Use History: None Reported Past Drug Use History: None Reported - Past Family History Mother Family Medical History: Myocardial Infarction (CT) Father Family Medical History: Myocardial Infarction (CT) Medications and Allergies Home Medications Medication Instructions Recorded Confirmed Type Rivaroxaban [Xarelto] 20 mg PO W/SUPPER 02/27/21 05/06/22 History Rosuvastatin Calcium 5 mg PO DAILY 04/24/22 05/06/22 History Carbidopa-Levodopa ER 50-200Mg 1 tab PO BID@0800,1300 04/30/22 05/06/22 History [Sinemet CR 50-200 mg] Lactulose 20 gm PO HS 04/30/22 05/06/22 History amLODIPine [Norvasc] 5 mg PO DAILY 30 Days #30 tab 05/05/22 05/06/22 Rx Allergies Allergy/AdvReac Type Severity Reaction Status Date / Time No Known Allergies Allergy Verified 05/06/22 16:39 Physical Exam Vitals: Vital Signs Temp Pulse Pulse Resp BP Pulse Ox 05/07/22 06:23 81 10 L 150/86 05/07/22 04:34 77 16 132/73 92 L 05/07/22 02:07 79 8 L 120/64 96 05/07/22 01:12 82 5 L 138/71 95 05/07/22 00:51 144/71 05/06/22 21:50 98.0 F 80 17 182/98 97 05/06/22 19:28 98.1 F 87 20 153/86 97 05/06/22 17:55 98.2 F 80 17 159/81 95 05/06/22 16:51 82 17 160/88 96 05/06/22 14:51 86 16 146/90 96 05/06/22 14:48 85 05/06/22 14:21 98.0 F 91 20 149/88 99 - Constitutional General appearance: cooperative, no acute distress - EENT Eyes: EOMI, PERRLA - Neck Neck: no lymphadenopathy, normal ROM, no rigidity - Respiratory Respiratory: bilateral: CTA - Cardiovascular Rhythm: regular Heart sounds: normal: S1, S2 - Gastrointestinal General gastrointestinal: soft, no tenderness - Integumentary Integumentary: normal, normal turgor - Psychiatric Psychiatric: A&O x's 3, appropriate affect, intact judgment & insight Results CBC & Chem 7: 05/06/22 15:18 05/06/22 15:18 Labs: Abnormal Lab Results - Last 24 Hours (Table) 05/06/22 05/06/22 05/06/22 Range/Units 15:18 15:18 15:18 Neutrophils # 8.5 H (1.3-7.7) k/uL Lymphocytes # 0.7 L (1.0-4.8) k/uL Sodium 126 L (137-145) mmol/L Chloride 93 L (98-107) mmol/L Creatinine 0.62 L (0.66-1.25) mg/dL Glucose 115 H (74-99) mg/dL Calcium 8.3 L (8.4-10.2) mg/dL Total Bilirubin 1.4 H (0.2-1.3) mg/dL Troponin I 4.750 H* (0.000-0.034) ng/mL Urine Protein (Negative) Urine Glucose (UA) (Negative) Urine Ketones (Negative) Urine Blood (Negative) Urine RBC (0-5) /hpf Urine Mucus (None) /hpf 05/06/22 Range/Units 17:50 Neutrophils # (1.3-7.7) k/uL Lymphocytes # (1.0-4.8) k/uL Sodium (137-145) mmol/L Chloride (98-107) mmol/L Creatinine (0.66-1.25) mg/dL Glucose (74-99) mg/dL Calcium (8.4-10.2) mg/dL Total Bilirubin (0.2-1.3) mg/dL Troponin I (0.000-0.034) ng/mL Urine Protein Trace H (Negative) Urine Glucose (UA) 1+ H (Negative) Urine Ketones 2+ H (Negative) Urine Blood Large H (Negative) Urine RBC 88 H (0-5) /hpf Urine Mucus Occasional H (None) /hpf Assessment and Plan (1) Hyponatremia Current Visit: Yes Status: Acute Code(s): E87.1 - HYPO-OSMOLALITY AND HYPONATREMIA SNOMED Code(s): 48004592 (2) History of atrial fibrillation Current Visit: Yes Status: Acute Code(s): Z86.79 - PERSONAL HISTORY OF OTHER DISEASES OF THE CIRCULATORY SYSTEM SNOMED Code(s): 609399721 (3) Fatigue Current Visit: No Status: Acute Code(s): R53.83 - OTHER FATIGUE SNOMED Code(s): 03979164 (4) Hypertension Current Visit: No Status: Acute Code(s): I10 - ESSENTIAL (PRIMARY) HYPERTENSION SNOMED Code(s): 04979726 Plan: Await results of CMP today. Home medications have been reconciled. Appreciate cardiology consult. Continue IV fluids Patient seen and evaluated by nurse practitioner, physician in agreement with plan
[2022-05-07 09:21] LABS: Basophils % (A) 0 %; Eosinophils # (A) 0.1 k/uL (0-0.7); Eosinophils % (A) 1 %; HCT 42.9 % (39.0-53.0); Lymphocytes # (A) 0.6 k/uL (1.0-4.8); Lymphocytes % (A) 7 %; MCH 31.7 pg (25.0-35.0); MCHC 34.8 g/dL (31.0-37.0); MCV 90.9 fL (80.0-100.0); Mean Platelet Volume 7.6; Monocytes # (A) 0.7 k/uL (0-1.0); Monocytes % (A) 8 %; Neutrophils # (A) 7.7 k/uL (1.3-7.7); Neutrophils % (A) 83 %; Platelet Count 166 k/uL (150-450); RBC 4.72 m/uL (4.30-5.90); RDW 12.1 % (11.5-15.5); WBC 9.2 k/uL (3.8-10.6)
[2022-05-07 09:56] LABS: ALT 19 U/L (4-49); AST 29 U/L (17-59); African American GFR (CKD) >90 (>60 ml/min/1.73 sqM); Albumin 3.4 g/dL (3.5-5.0); Alkaline Phosphatase 55 U/L (38-126); Anion Gap 8 mmol/L; Blood Urea Nitrogen 14 mg/dL (9-20); Calcium 7.8 mg/dL (8.4-10.2); Carbon Dioxide 22 mmol/L (22-30); Chloride 96 mmol/L (98-107); Glucose 98 mg/dL (74-99); Non-African American GFR(CKD) >90 (>60 ml/min/1.73 sqM); Potassium 3.9 mmol/L (3.5-5.1); Sodium 126 mmol/L (137-145); Total Bilirubin 1.5 mg/dL (0.2-1.3)
[2022-05-07] MEDS ORDERED: ASPIRIN 325 MG TAB PO STA (10:43)
[2022-05-07] MEDS ORDERED: ATORVASTATIN 80 MG TAB PO STA (10:43)
[2022-05-07] MEDS ORDERED: ALPRAZolam 0.25 MG TAB PO PRN (10:43)
[2022-05-07] MEDS ORDERED: NITROGLYCERIN SL TABS 0.4 MG TAB SUBLINGUAL PRN (10:43)
[2022-05-07] MEDS ORDERED: ALPRAZolam 0.5 MG TAB PO PRN (10:43)
--- NOTE | 2022-05-07 10:48 | P.CRDCN ---
History of Present Illness History of present illness: History of present illness: This is an 81-year-old male patient of Dr. Manuel with past medical history of typical atrial flutter/atrial fibrillation, atrial tachycardia status post electrical cardioversion and recent ablation, hypertension, left bundle branch block. Patient has been having a number of issues with palpitations shortness breath over last few months. Most this was felt related to A. fib and eventually underwent A. fib ablation 05/04/22 which was uneventful. Patient was discharged home and then yesterday started feeling diaphoretic and somewhat short of breath and therefore presented to the ER. Initial troponin elevated at 4.7 and no repeat was performed. He denies any prior history of heart catheterization. Denies any current diaphoresis or shortness breath. Denies any chest pain. Has not recieved Xarelto yesterday EKG sinus rhythm with left bundle branch block Lexiscan stress test 2018 had fixed defect related to left bundle branch block, no reversible ischemia Echocardiogram 12/2021 revealed EF of 55%, intermediate diastolic dysfunction, moderate left ear H, ascending aortic measuring 3.8 cm, mild/moderate MR, RVSP 40 mmHg Cardioversion 08/2021 for atrial tachycardia Limited echocardiogram 05/01: Preserved LV systolic function. Asymmetrical sep olivier hypertrophy. Normal pericardium. No significant valvular abnormalities. Review Of Systems: At the time of my evaluation: Constitutional: No fever, no chills. No weakness, reports fatigue no lethargy. EENT: No headache. Reports dizziness. Lungs: No shortness of breath, cough, no sputum production. No wheezing. Cardiovascular: No chest pain, no lower extremity edema. No palpitations. No paroxysmal nocturnal dyspnea. No orthopnea. No lightheadedness or dizziness. No syncopal episodes. +SOB, +diaphoresis Abdominal: No abdominal pain. No nausea, vomiting. No diarrhea. No consti pation. No bloody or tarry stools. Genitourinary: No dysuria.. No urinary retention. Musculoskeletal: No myalgias. No muscle weakness, no frequent falls. No back pain. No neck pain. Integumentary: No wounds. Neurologic: No aphasia. No facial droop. No change in mentation. No head injury. No headache. Physical examination: Gen: This is an 81-year-old male. He is resting in bed and appears to be comfortable. No acute distress. VS: reviewed HEENT: Head is atraumatic, normocephalic. Pupils equal, round. Sclerae is anicteric. NECK: Supple. No JVD. LUNGS: Clear to auscultation. No wheezes or rhonchi. No intercostal retractions. HEART: Regular rate and rhythm. Systolic murmur. ABDOMEN: Soft. No tenderness. EXTREMITIES: No pedal edema. No calf tenderness. NEUROLOGICAL: Patient is awake, alert and oriented x3. Assessment: Elevated troponin, likely related to Afib ablation however has been having additional atypical symptoms and rule out additional unerlying CAD Vague symptoms of fatigue, dizziness shortness of breath possibly related to Afib History of A. fib/A flutter s/p ablation on Wednesday Hypertension Left bundle branch block Plan: Patient has still been having atypical symptoms and additionally had elevated troponins. Elevated troponins likely related to recent A. fib ablation however given persistent symptoms discussed option of definitive diagnosis with heart catheterization patient is agreeable. Check limited 2-D echo to evaluate for any effusion. If echo and cath unrevealing, patient may be discharged home from a cardiology standpoint. Past Medical History Past Medical History: Atrial Fibrillation, Neurologic Disorder Additional Past Medical History / Comment(s): COVID .HAS LOOP RECORDER. Arthritic spinal disc disease. See Dr Manuel's H&P, SOB. parkinson's , per ipheral NEUROPATHY. History of Any Multi-Drug Resistant Organisms: None Reported Past Surgical History: Cardiac Ablation, Hernia Repair, Prostate Surgery Additional Past Surgical History / Comment(s): double inguinal hernia repair Past Anesthesia/Blood Transfusion Reactions: No Reported Reaction Past Psychological History: No Psychological Hx Reported Smoking Status: Never smoker Past Alcohol Use History: None Reported Past Drug Use History: None Reported - Past Family History Mother Family Medical History: Myocardial Infarction ([place]) Father Family Medical History: Myocardial Infarction ([place]) Medications and Allergies Home Medications Medication Instructions Recorded Confirmed Type Rivaroxaban [Xarelto] 20 mg PO W/SUPPER 02/27/21 05/06/22 History Rosuvastatin Calcium 5 mg PO DAILY 04/24/22 05/06/22 History Carbidopa-Levodopa ER 50-200Mg 1 tab PO BID@0800,1300 04/30/22 05/06/22 History [Sinemet CR 50-200 mg] Lactulose 20 gm PO HS 04/30/22 05/06/22 History amLODIPine [Norvasc] 5 mg PO DAILY 30 Days #30 tab 05/05/22 05/06/22 Rx Allergies Allergy/AdvReac Type Severity Reaction Status Date / Time No Known Allergies Allergy Verified 05/06/22 16:39 Physical Exam Vitals: Vital Signs Temp Pulse Pulse Resp BP Pulse Ox 05/07/22 10:30 91 20 163/87 95 05/07/22 09:51 84 18 159/85 95 05/07/22 06:23 81 10 L 150/86 05/07/22 04:34 77 16 132/73 92 L 05/07/22 02:07 79 8 L 120/64 96 05/07/22 01:12 82 5 L 138/71 95 05/07/22 00:51 144/71 05/06/22 21:50 98.0 F 80 17 182/98 97 05/06/22 19:28 98.1 F 87 20 153/86 97 05/06/22 17:55 98.2 F 80 17 159/81 95 05/06/22 16:51 82 17 160/88 96 05/06/22 14:51 86 16 146/90 96 05/06/22 14:48 85 05/06/22 14:21 98.0 F 91 20 149/88 99 Results 05/07/22 09:08 05/07/22 09:08 Cardiac Enzymes 05/06/22 05/06/22 05/07/22 Range/Units 15:18 15:18 09:08 AST 41 29 (17-59) U/L Troponin I 4.750 H* (0.000-0.034) ng/mL Coagulation 05/06/22 Range/Units 15:18 PT 10.1 (9.0-12.0) sec APTT 26.2 (22.0-30.0) sec CBC 05/06/22 05/07/22 Range/Units 15:18 09:08 WBC 10.2 9.2 (3.8-10.6) k/uL RBC 4.93 4.72 (4.30-5.90) m/uL Hgb 15.5 15.0 (13.0-17.5) gm/dL Hct 44.8 42.9 (39.0-53.0) % Plt Count 168 166 (150-450) k/uL Comprehensive Metabolic Panel 05/06/22 05/07/22 Range/Units 15:18 09:08 Sodium 126 L 126 L (137-145) mmol/L Potassium 3.8 3.9 (3.5-5.1) mmol/L Chloride 93 L 96 L (98-107) mmol/L Carbon Dioxide 24 22 (22-30) mmol/L BUN 18 14 (9-20) mg/dL Creatinine 0.62 L 0.62 L (0.66-1.25) mg/dL Glucose 115 H 98 (74-99) mg/dL Calcium 8.3 L 7.8 L (8.4-10.2) mg/dL AST 41 29 (17-59) U/L ALT 9 19 (4-49) U/L Alkaline Phosphatase 57 55 (38-126) U/L Total Protein 6.8 6.0 L (6.3-8.2) g/dL Albumin 4.0 3.4 L (3.5-5.0) g/dL Current Medications Generic Name Dose Route Start Last Admin Trade Name Freq PRN Reason Stop Dose Admin Acetaminophen 650 mg 05/06/22 17:36 Acetaminophen Tab 325 Mg Tab PO Q6HR PRN Mild Pain or Fever > 100.5 Alprazolam 0.25 mg 05/07/22 10:43 Alprazolam 0.25 Mg Tab PO Q6HR PRN Mild Anxiety Alprazolam 0.5 mg 05/07/22 10:43 Alprazolam 0.5 Mg Tab PO Q6HR PRN Moderate Anxiety Amlodipine Besylate 5 mg 05/07/22 09:00 Amlodipine 5 Mg Tab PO DAILY [facility] Aspirin 325 mg 05/07/22 10:43 Aspirin 325 Mg Tab PO 05/07/22 10:44 ONCE STA Atorvastatin Calcium 10 mg 05/07/22 09:00 Atorvastatin 10 Mg Tab PO DAILY [facility] Atorvastatin Calcium 80 mg 05/07/22 10:43 Atorvastatin 80 Mg Tab PO 05/07/22 10:44 ONCE STA Carbidopa/Levodopa 1 each 05/07/22 13:00 Carbidopa-Levodopa Er 50-200mg 1 Each Tablet.Er PO BID@0800,1300 [facility] Famotidine 20 mg 05/06/22 21:00 05/06/22 20:37 Famotidine 20 Mg Tab PO 20 mg BID UNIQUE Administration Sodium Chloride 1,000 mls @ 75 mls/hr 05/06/22 17:45 05/06/22 17:52 Saline 0.9% IV 75 mls/hr .[id number] UNIQUE Administration Lactulose 20 gm 05/07/22 21:00 Lactulose 20 Gm/30 Ml Cup PO HS [facility] Naloxone HCl 0.2 mg 05/06/22 17:36 Naloxone 0.4 Mg/Ml 1 Ml Vial IV Q2M PRN Opioid Reversal Nitroglycerin 0.4 mg 05/07/22 10:43 Nitroglycerin Sl Tabs 0.4 Mg Tab SUBLINGUAL Q5M PRN Chest Pain Rivaroxaban 20 mg 05/07/22 17:30 Rivaroxaban 20 Mg Tab PO W/SUPPER [facility] Protocol 05/07/22 09:08 05/07/22 09:08
[2022-05-07] MEDS: amLODIPine 5 MG TAB PO SCH (10:52)
[2022-05-07] MEDS: ATORVASTATIN 10 MG TAB PO SCH (10:52)
[2022-05-07] MEDS: FAMOTIDINE 20 MG TAB PO SCH ×2 (10:52→21:59)
[2022-05-07] MEDS: CARBIDOPA-LEVODOPA ER 50-200MG 1 EACH TABLET.ER PO SCH ×2 (10:52→17:04)
[2022-05-07] MEDS: SODIUM CHLORIDE 0.9% 1,000 ML IV SCH ×2 (10:55→17:08)
[2022-05-07 11:46] LABS: Glucose,Whole Blood 97 mg/dL (70-110)
[2022-05-07] MEDS ORDERED: VERAPAMIL 2.5 MG/ML 2 ML AMP ONE (12:47)
[2022-05-07] MEDS ORDERED: fentaNYL (PF) 50 MCG/ML 2 ML AMP ONE (12:47)
[2022-05-07] MEDS ORDERED: HEPARIN SODIUM 1,000 UN/ML (10ML VL) ONE (12:50)
[2022-05-07] MEDS ORDERED: IV FLUID CONTINUATION 500 ML IV ONE (13:10)
[2022-05-07] MEDS ORDERED: LIDOCAINE 1% INJ 10MG/ML (5 ML VIAL-PF) SQ ONE (13:22)
[2022-05-07] MEDS ORDERED: MIDAZOLAM 2 MG/2 ML VIAL IV ONE (13:22)
[2022-05-07] MEDS ORDERED: fentaNYL (PF) 50 MCG/1 ML VIAL IV ONE (13:23)
[2022-05-07] MEDS ORDERED: VERAPAMIL SYRINGE (5 MG/10 ML) INTRAARTER ONE (13:24)
[2022-05-07] MEDS: HEPARIN SODIUM 1,000 UN/ML (10ML VL) IV ONE ×2 (13:25→13:40)
[2022-05-07] MEDS ORDERED: CLOPIDOGREL 75 MG TAB PO ONE (13:32)
[2022-05-07] MEDS ORDERED: CLOPIDOGREL 75 MG TAB ONE (13:36)
[2022-05-07] MEDS: NITROGLYCERIN 1000MCG/10ML SYRINGE INTRACORON ONE ×2 (13:44→13:50)
[2022-05-07] MEDS ORDERED: IOPAMIDOL-370 125ML BTL INJ ONE (13:55)
[2022-05-07] MEDS: RIVAROXABAN 20 MG TAB PO SCH (17:04)
[2022-05-08] MEDS: LACTULOSE 20 GM/30 ML CUP PO SCH ×2 (06:30→20:28)
[2022-05-08] MEDS ORDERED: HEPARIN SODIUM,PORCINE 10,000 UNIT in SODIUM CHLORIDE 0.9% 1,000 ML IRRIGATION PRN (07:00)
[2022-05-08] MEDS ORDERED: HEPARIN SODIUM,PORCINE 2,500 UNIT in SODIUM CHLORIDE 0.9% 250 ML IRRIGATION PRN (07:00)
[2022-05-08 08:22] LABS: ALT 19 U/L (4-49); AST 24 U/L (17-59); African American GFR (CKD) >90 (>60 ml/min/1.73 sqM); Albumin 3.6 g/dL (3.5-5.0); Alkaline Phosphatase 60 U/L (38-126); Anion Gap 9 mmol/L; Blood Urea Nitrogen 13 mg/dL (9-20); Calcium 8.4 mg/dL (8.4-10.2); Carbon Dioxide 22 mmol/L (22-30); Chloride 96 mmol/L (98-107); Glucose 122 mg/dL (74-99); Non-African American GFR(CKD) >90 (>60 ml/min/1.73 sqM); Potassium 3.7 mmol/L (3.5-5.1); Sodium 127 mmol/L (137-145); Total Bilirubin 1.3 mg/dL (0.2-1.3); Total Protein 6.4 g/dL (6.3-8.2)
--- NOTE | 2022-05-08 08:31 | P.PN ---
Subjective Progress Note Date: 05/08/22 Principal diagnosis: Elevated troponin and hyponatremia Appreciate cardiology input. The patient had 2-D echo and is scheduled for cardiac catheterization later today. He still feels somewhat queasy but emulating better. Hyponatremia still noted. Objective - Vital Signs Vital signs: Vital Signs Temp 98 F 05/08/22 08:00 Pulse 74 05/08/22 08:00 Resp 16 05/08/22 08:00 BP 169/93 05/08/22 08:00 Pulse Ox 98 05/08/22 08:00 FiO2 Intake & Output 05/07/22 05/08/22 05/08/22 18:59 06:59 18:59 Intake Total 858 0 Output Total 450 450 200 Balance 408 -450 -200 Intake: IV 500 Oral 358 0 Output: Urine 450 450 200 Other: Voiding Method Urinal Urinal # Voids 3 1 - Constitutional General appearance: Present: average body habitus - EENT Eyes: Absent: abnormal pupil - Neck Neck: Absent: lymphadenopathy - Respiratory Respiratory: bilateral: CTA - Cardiovascular Rhythm: regular Heart sounds: normal: S1, S2 Abnormal Heart Sounds: Absent: S3 Gallop - Gastrointestinal General gastrointestinal: Present: soft. Absent: tenderness - Integumentary Integumentary: Absent: cellulitis - Labs CBC & Chem 7: 05/07/22 09:08 05/08/22 07:16 Labs: Abnormal Lab Results - Last 24 Hours (Table) 05/07/22 05/07/22 05/07/22 Range/Units 09:08 09:08 10:43 Lymphocytes # 0.6 L (1.0-4.8) k/uL Sodium 126 L (137-145) mmol/L Chloride 96 L (98-107) mmol/L Creatinine 0.62 L (0.66-1.25) mg/dL Glucose (74-99) mg/dL Calcium 7.8 L (8.4-10.2) mg/dL Total Bilirubin 1.5 H (0.2-1.3) mg/dL Troponin I 2.690 H* (0.000-0.034) ng/mL Total Protein 6.0 L (6.3-8.2) g/dL Albumin 3.4 L (3.5-5.0) g/dL 05/08/22 Range/Units 07:16 Lymphocytes # (1.0-4.8) k/uL Sodium 127 L (137-145) mmol/L Chloride 96 L (98-107) mmol/L Creatinine 0.65 L (0.66-1.25) mg/dL Glucose 122 H (74-99) mg/dL Calcium (8.4-10.2) mg/dL Total Bilirubin (0.2-1.3) mg/dL Troponin I (0.000-0.034) ng/mL Total Protein (6.3-8.2) g/dL Albumin (3.5-5.0) g/dL Assessment and Plan (1) Dyspnea Current Visit: No Status: Acute Code(s): R06.00 - DYSPNEA, UNSPECIFIED SNOMED Code(s): 991323603 (2) Hypertension Current Visit: No Status: Acute Code(s): I10 - ESSENTIAL (PRIMARY) HYPERTENSION SNOMED Code(s): 03609761 (3) Hyponatremia Current Visit: Yes Status: Acute Code(s): E87.1 - HYPO-OSMOLALITY AND HYPONATREMIA SNOMED Code(s): 67122068 (4) History of atrial fibrillation Current Visit: Yes Status: Acute Code(s): Z86.79 - PERSONAL HISTORY OF OTHER DISEASES OF THE CIRCULATORY SYSTEM SNOMED Code(s): 471949198 Plan: Await cardiac catheterization and 2-D echo. Still with slight hyponatremia. Continue fluid replacement
[2022-05-08] MEDS: ATORVASTATIN 10 MG TAB PO SCH (08:36)
[2022-05-08] MEDS: amLODIPine 5 MG TAB PO SCH (08:36)
[2022-05-08] MEDS: FAMOTIDINE 20 MG TAB PO SCH ×2 (08:36→20:28)
[2022-05-08] MEDS: CARBIDOPA-LEVODOPA ER 50-200MG 1 EACH TABLET.ER PO SCH ×2 (08:38→12:41)
[2022-05-08] MEDS ORDERED: NITROGLYCERIN SL TABS 0.4 MG TAB SUBLINGUAL PRN (09:03)
[2022-05-08] MEDS ORDERED: ATROPINE SULFATE 0.1 MG/ML 10ML SYRINGE IV PRN (09:03)
[2022-05-08] MEDS ORDERED: RX INFO: IV CONTRAST WAS GIVEN 1 EACH MISC MISCELLANE PRN (09:03)
[2022-05-08] MEDS ORDERED: MAG HYDROX/AL HYDROX/SIMETH 30 ML CUP PO PRN (09:03)
--- NOTE | 2022-05-08 09:13 | P.PRCINT ---
Percutaneous Coronary Int. - Percutaneous Coronary Intervention Percutaneous Coronary Intervention: PROCEDURES PERFORMED: Left heart catheterization, bilateral coronary angiography, PCI mid LAD with 2.75 x 18mm Xience JIE, post dilated proximally with a 3.5 NC balloon INDICATION: Non-STEMI DATE OF PROCEDURE: 05/07/22 CONSENT:I have discussed the risks, benefits and alternative therapies for the above-mentioned procedure and for both sedation/analgesia as well as necessary blood product administration, if indicated, as they pertain to this patient. The patient has indicated understanding and acceptance of the risks and procedures discussed. PROCEDURE: After the risks, benefits and alternatives of the above mentioned procedure explained in detail with the patient, informed consent was obtained. Patient was taken to the catheterization lab and prepped and draped in usual fashion. 1% lidocaine was used to anesthetize the right radial artery. A 6- [place] sheath was placed in the right radial artery using modified Seldinger technique. Left coronary angiography was performed with a 5-[place] JL 3.5 cath eter and right coronary angiography was performed with a 5-[place] JR5 catheter in various views. A 5-[place] FR5 catheter was inserted into the left ventricle and pressure measurements were obtained. The decision was made to perform PCI of the LAD. Heparin was given for ACT greater than 250. A 6-[place] CLS 3.5 guide was he is engaged left main. A 0.014 BMW wire was advanced into this LAD. Predilation was performed with a 2.5 x 12 mm balloon. Next a 2.75 x 18 mm Xience JIE was placed in the mid LAD. The proximal portion was postdilated with a 3.5 noncompliant balloon. The wire was pulled and final angiograms were performed. The right radial sheath was removed and a TR band was placed with hemostasis achieved. The patient tolerated the procedure well. Patient was transported back to the post catheterization holding area in stable condition. Conscious Sedation: Patient was monitored under the direct supervision of vision of myself for conscious sedation using Versed and fentanyl for a total duration of 35 minutes HEMODYNAMICS: Ao: 131/78 LV: 141/5, LVEDP 14mmHg SELECTIVE CORONARY ARTERIOGRAPHY: LEFT MAIN: The left main is a large caliber vessel which bifurcates into the LAD and circumflex. There is no significant stenosis. LEFT ANTERIOR DESCENDING CORONARY ARTERY: LAD is a large caliber vessel which wraps around to the apex. There is tandem 80% and 99% mid LAD stenoses with MAURO 2 flow. Diagonal 1 is small caliber and bifurcates and has a 60-70% stenosis of the inferior branch. LEFT CIRCUMFLEX CORONARY ARTERY: Left circumflex is a moderate caliber vessel with mild luminal irregularities. RIGHT CORONARY ARTERY: The right coronary artery is a large caliber vessel which gives off a PDA and PLV branch and is the dominant vessel. There is a mid RCA 40% stenosis and otherwise mild luminal irregularities. FINAL IMPRESSION: 1. CAD as described above including mid LAD 99%, diagonal 1 60-70%, mid RCA 40% 2. S/p PCI mid LAD with 2.75 x 18mm Xience JIE, post dilated proximally with a 3.5 NC balloon 3. Normal left sided filling pressures PLAN: 1. Aggressive risk factor modification per most recent ACC/AHA guidelines. 2. Continue Xarelto and Plavix for a total of 12 months.
--- NOTE | 2022-05-08 09:25 | P.PN ---
Subjective History of present illness: This is an 81-year-old male patient of Dr. Manuel with past medical history of typical atrial flutter/atrial fibrillation, atrial tachycardia status post electrical cardioversion and recent ablation, hypertension, left bundle branch block. Patient has been having a number of issues with palpitations shortness breath over last few months. Most this was felt related to A. fib and eventually underwent A. fib ablation 05/04/22 which was uneventful. Patient was discharged home and then yesterday started feeling diaphoretic and somewhat short of breath and therefore presented to the ER. Initial troponin elevated at 4.7 and no repeat was performed. He denies any prior history of heart catheterization. Denies any current diaphoresis or shortness breath. Denies any chest pain. Has not recieved Xarelto yesterday EKG sinus rhythm with left bundle branch block Lexiscan stress test 2018 had fixed defect related to left bundle branch block, no reversible ischemia Echocardiogram 12/2021 revealed EF of 55%, intermediate diastolic dysfunction, moderate left ear H, ascending aortic measuring 3.8 cm, mild/moderate MR, RVSP 40 mmHg Cardioversion 08/2021 for atrial tachycardia Limited echocardiogram 05/01: Preserved LV systolic function. Asymmetrical septal hypertrophy. Normal pericardium. No significant valvular abnormalities. 05/08 Patient seen and examined. Patient denies any further chest pain or nausea or diaphoresis. States overall he is feeling well. He did undergo heart catheterization yesterday with findings of 99% mid LAD stenosis and PCI of the mid LAD. he was started on Plavix as well as the Xarelto. he has been on the Crestor for a number of years and does have chronic muscle aches mainly in the thighs which she attributes to neuropathy. Physical examination: Gen: This is an 81-year-old male. He is resting in bed and appears to be comfortable. No acute distress. VS: reviewed HEENT: Head is atraumatic, normocephalic. Pupils equal, round. Sclerae is anicteric. NECK: Supple. No JVD. LUNGS: Clear to auscultation. No wheezes or rhonchi. No intercostal retractions. HEART: Regular rate and rhythm. Systolic murmur. ABDOMEN: Soft. No tenderness. EXTREMITIES: No pedal edema. No calf tenderness. NEUROLOGICAL: Patient is awake, alert and oriented x3. Assessment: NSTEMI s/p PCI mid LAD CAD Vague symptoms of fatigue, dizziness shortness of breath possibly related to Afib History of A. fib/A flutter s/p ablation on Wednesday Hypertension Left bundle branch block Plan: Continue Xarelto and Plavix. No further angina type symptoms. Stable for DC home from a cardiology standpoint. If continues to have muscle aches, may consider holding Crestor. Objective - Vital Signs Vital signs: Vital Signs Temp 98 F 05/08/22 08:00 Pulse 74 05/08/22 08:00 Resp 16 05/08/22 08:00 BP 169/93 05/08/22 08:00 Pulse Ox 98 05/08/22 08:00 FiO2 Intake & Output 05/07/22 05/08/22 05/08/22 18:59 06:59 18:59 Intake Total 858 0 Output Total 450 450 200 Balance 408 -450 -200 Intake: IV 500 Oral 358 0 Output: Urine 450 450 200 Other: Voiding Method Urinal Urinal # Voids 3 1 - Labs CBC & Chem 7: 05/07/22 09:08 05/08/22 07:16 Labs: Abnormal Lab Results - Last 24 Hours (Table) 05/07/22 05/07/22 05/07/22 Range/Units 09:08 09:08 10:43 Lymphocytes # 0.6 L (1.0-4.8) k/uL Sodium 126 L (137-145) mmol/L Chloride 96 L (98-107) mmol/L Creatinine 0.62 L (0.66-1.25) mg/dL Glucose (74-99) mg/dL Calcium 7.8 L (8.4-10.2) mg/dL Total Bilirubin 1.5 H (0.2-1.3) mg/dL Troponin I 2.690 H* (0.000-0.034) ng/mL Total Protein 6.0 L (6.3-8.2) g/dL Albumin 3.4 L (3.5-5.0) g/dL 05/08/22 Range/Units 07:16 Lymphocytes # (1.0-4.8) k/uL Sodium 127 L (137-145) mmol/L Chloride 96 L (98-107) mmol/L Creatinine 0.65 L (0.66-1.25) mg/dL Glucose 122 H (74-99) mg/dL Calcium (8.4-10.2) mg/dL Total Bilirubin (0.2-1.3) mg/dL Troponin I (0.000-0.034) ng/mL Total Protein (6.3-8.2) g/dL Albumin (3.5-5.0) g/dL
[2022-05-08] MEDS: SODIUM CHLORIDE 0.9% 1,000 ML IV SCH ×2 (10:09→20:28)
--- NOTE | 2022-05-08 10:40 | CA ---
Transthoracic Echo Report Name: Denton Mike Age: 81 Gender: M : 1940 Exam Date: 05/07/2022 13:35 Exam Location: [facility] Ht (in): 72 Wt (lb): 189 Ordering Physician: Joaquin Cardenas DO ([id number]) Attending/Referring Phys: Simulation Analyst Radha Sarah, ANABELL Procedure CPT: Indications: re: recent ablation, rule out pericardial effusion Cardiac Hx: recent stent Technical Quality: Contrast 1: Total Dose (mL): Contrast 2: Total Dose (mL): MEASUREMENTS (Male / Female) Normal Values FINDINGS Left Ventricle Left ventricular ejection fraction is estimated at 55-60 %. No obvious regional wall motion abnormalities. Right Ventricle Right Atrium Left Atrium Mitral Valve Aortic Valve Tricuspid Valve Pulmonic Valve Pericardium Normal pericardium. Small pericardial effusion by RA and left ventrical Aorta CONCLUSIONS Limited study Normal LV systolic function Small circumferential pericardial effusion Previewed by: Dr. Lamonte Moore MD (Electronically Signed) Final Date: 08 May 2022 10:39
[2022-05-08 13:04] VITALS: BMI 25.6
[2022-05-08] MEDS: RIVAROXABAN 20 MG TAB PO SCH (17:03)
[2022-05-08] MEDS: ZOLPIDEM 5 MG TAB PO PRN (20:28)
[2022-05-09 07:05] LABS: ALT 15 U/L (4-49); AST 20 U/L (17-59); African American GFR (CKD) >90 (>60 ml/min/1.73 sqM); Albumin 3.2 g/dL (3.5-5.0); Alkaline Phosphatase 51 U/L (38-126); Anion Gap 7 mmol/L; Blood Urea Nitrogen 9 mg/dL (9-20); Carbon Dioxide 22 mmol/L (22-30); Chloride 100 mmol/L (98-107); Glucose 103 mg/dL (74-99); Non-African American GFR(CKD) >90 (>60 ml/min/1.73 sqM); Potassium 3.8 mmol/L (3.5-5.1); Sodium 129 mmol/L (137-145); Total Bilirubin 0.9 mg/dL (0.2-1.3); Total Protein 5.8 g/dL (6.3-8.2)
[2022-05-09] MEDS: CLOPIDOGREL 75 MG TAB PO SCH (08:46)
[2022-05-09] MEDS: ATORVASTATIN 10 MG TAB PO SCH (08:46)
[2022-05-09] MEDS: FAMOTIDINE 20 MG TAB PO SCH ×2 (08:46→19:50)
[2022-05-09] MEDS: CARBIDOPA-LEVODOPA ER 50-200MG 1 EACH TABLET.ER PO SCH ×2 (08:46→12:42)
[2022-05-09] MEDS: amLODIPine 5 MG TAB PO SCH (08:47)
--- NOTE | 2022-05-09 13:11 | P.PN ---
Subjective Progress Note Date: 05/09/22 History of present illness: This is an 81-year-old male patient of Dr. Manuel with past medical history of typical atrial flutter/atrial fibrillation, atrial tachycardia status post electrical cardioversion and recent ablation, hypertension, left bundle branch block. Patient has been having a number of issues with palpitations shortness breath over last few months. Most this was felt related to A. fib and eventually underwent A. fib ablation 05/04/22 which was uneventful. Patient was discharged home and then yesterday started feeling diaphoretic and somewhat short of breath and therefore presented to the ER. Initial troponin elevated at 4.7 and no repeat was performed. He denies any prior history of heart catheterization. Denies any current diaphoresis or shortness breath. Denies any chest pain. Has not recieved Xarelto yesterday EKG sinus rhythm with left bundle branch block Lexiscan stress test 2018 had fixed defect related to left bundle branch block, no reversible ischemia Echocardiogram 12/2021 revealed EF of 55%, intermediate diastolic dysfunction, moderate left ear H, ascending aortic measuring 3.8 cm, mild/moderate MR, RVSP 40 mmHg Cardioversion 08/2021 for atrial tachycardia Limited echocardiogram 05/01: Preserved LV systolic function. Asymmetrical septal hypertrophy. Normal pericardium. No significant valvular abnormalities. 05/08 Patient seen and examined. Patient denies any further chest pain or nausea or diaphoresis. States overall he is feeling well. He did undergo heart catheterization yesterday with findings of 99% mid LAD stenosis and PCI of the mid LAD. he was started on Plavix as well as the Xarelto. he has been on the Crestor for a number of years and does have chronic muscle aches mainly in the thighs which she attributes to neuropathy. 05/09 Patient is doing well. Denies any chest pain or shortness of breath. Has some concerns about going home as his had recent knee surgery. Physical examination: Gen: This is an 81-year-old male. He is resting in bed and appears to be comfortable. No acute distress. VS: reviewed HEENT: Head is atraumatic, normocephalic. Pupils equal, round. Sclerae is anicteric. NECK: Supple. No JVD. LUNGS: Clear to auscultation. No wheezes or rhonchi. No intercostal retractions. HEART: Regular rate and rhythm. Systolic murmur. ABDOMEN: Soft. No tenderness. EXTREMITIES: No pedal edema. No calf tenderness. Right radial site with bruising, paplable pulse. NEUROLOGICAL: Patient is awake, alert and oriented x3. Assessment: NSTEMI s/p PCI mid LAD CAD Vague symptoms of fatigue, dizziness shortness of breath possibly related to Afib History of A. fib/A flutter s/p ablation on Wednesday Hypertension Left bundle branch block Plan: Continue Xarelto and Plavix. Stable for DC home from a cardiology standpoint. If he continues to have muscle aches, may consider holding Crestor. Cardiology to sign off. Follow up with Dr. Manuel in 1 week in office. Call with any questions. Objective - Vital Signs Vital signs: Vital Signs Temp 98.3 F 05/09/22 04:00 Pulse 78 05/09/22 12:00 Resp 16 05/09/22 12:00 BP 154/80 05/09/22 12:00 Pulse Ox 98 05/09/22 12:00 FiO2 Intake & Output 05/08/22 05/09/22 05/09/22 18:59 06:59 18:59 Intake Total 0 990 240 Output Total 1600 1200 1500 Balance -1600 -210 -1260 Weight 85.729 kg Intake: Intake, IV Titration 450 Amount Sodium Chloride 0.9% 1, 450 000 ml @ 75 mls/hr IV . [id number] [facility] Rx#:[id number] Oral 0 540 240 Output: Urine 1600 1200 1500 Male - External 800 800 Other: Voiding Method Urinal External Catheter External Catheter # Voids 4 - Labs CBC & Chem 7: 05/07/22 09:08 05/09/22 05:49 Labs: Abnormal Lab Results - Last 24 Hours (Table) 05/09/22 Range/Units 05:49 Sodium 129 L (137-145) mmol/L Glucose 103 H (74-99) mg/dL Calcium 8.0 L (8.4-10.2) mg/dL Total Protein 5.8 L (6.3-8.2) g/dL Albumin 3.2 L (3.5-5.0) g/dL
[2022-05-09] MEDS ORDERED: MAGNESIUM HYDROXIDE 2,400 MG/10 ML CUP PO PRN (16:01)
[2022-05-09] MEDS: SODIUM CHLORIDE 0.9% 1,000 ML IV SCH (16:23)
[2022-05-09] MEDS: RIVAROXABAN 20 MG TAB PO SCH (16:23)
[2022-05-09] MEDS: LACTULOSE 20 GM/30 ML CUP PO SCH (19:49)
--- NOTE | 2022-05-09 20:34 | P.PN ---
Subjective Progress Note Date: 05/09/22 81-year-old male patient of Dr. Manuel with past medical history of typical atrial flutter/atrial fibrillation, atrial tachycardia status post electrical cardioversion and recent ablation, hypertension, left bundle branch block. Patient has been having a number of issues with palpitations shortness breath over last few months. Most this was felt related to A. fib and eventually underwent A. fib ablation 05/04/22 which was uneventful. Patient was discharged home and then yesterday started feeling diaphoretic and somewhat short of breath and therefore presented to the ER. Initial troponin elevated at 4.7 and no repeat was performed. He denies any prior history of heart catheterization. Denies any current diaphoresis or shortness breath. Denies any chest pain. Has not recieved Xarelto yesterday EKG sinus rhythm with left bundle branch block Lexiscan stress test 2018 had fixed defect related to left bundle branch block, no reversible ischemia Echocardiogram 12/2021 revealed EF of 55%, intermediate diastolic dysfunction, moderate left ear H, ascending aortic measuring 3.8 cm, mild/moderate MR, RVSP 40 mmHg Cardioversion 08/2021 for atrial tachycardia Limited echocardiogram 05/01: Preserved LV systolic function. Asymmetrical septal hypertrophy. Normal pericardium. No significant valvular abnormalities. Objective - Vital Signs Vital signs: Vital Signs Temp 98.3 F 05/09/22 04:00 Pulse 77 05/09/22 08:00 Resp 16 05/09/22 08:00 BP 151/84 05/09/22 08:00 Pulse Ox 98 05/09/22 08:00 FiO2 Intake & Output 05/08/22 05/09/22 05/09/22 18:59 06:59 18:59 Intake Total 0 990 Output Total 1600 1200 Balance -1600 -210 Weight 85.729 kg Intake: Intake, IV Titration 450 Amount Sodium Chloride 0.9% 1, 450 000 ml @ 75 mls/hr IV . [id number] [facility] Rx#:[id number] Oral 0 540 Output: Urine 1600 1200 Male - External 800 Other: Voiding Method Urinal External Catheter # Voids 4 - Exam HEENT: Head is atraumatic, normocephalic. Pupils equal, round. Sclerae is anicteric. NECK: Supple. No JVD. LUNGS: Clear to auscultation. No wheezes or rhonchi. No intercostal retractio ns. HEART: Regular rate and rhythm. Systolic murmur. ABDOMEN: Soft. No tenderness. EXTREMITIES: No pedal edema. No calf tenderness. Right radial site with bruising, paplable pulse. NEUROLOGICAL: Patient is awake, alert and oriented x3. - Labs CBC & Chem 7: 05/07/22 09:08 05/09/22 05:49 Labs: Abnormal Lab Results - Last 24 Hours (Table) 05/08/22 05/09/22 Range/Units 11:30 05:49 Sodium 127 L 129 L (137-145) mmol/L Glucose 103 H (74-99) mg/dL Calcium 8.0 L (8.4-10.2) mg/dL Total Protein 5.8 L (6.3-8.2) g/dL Albumin 3.2 L (3.5-5.0) g/dL Assessment and Plan Assessment: NSTEMI s/p PCI mid LAD CAD Vague symptoms of fatigue, dizziness shortness of breath possibly related to Afib History of A. fib/A flutter s/p ablation on Wednesday Hypertension Left bundle branch block -- Patient is status post PCI to mid LAD; cardiology recommending to continue with Xarelto and Plavix -- Repeat sodium level at 129 up from 126 upon admission; we will continue with current IV fluids and continue to monitor electrolytes closely -- Possible discharge in next 24 hours if remains stable
[2022-05-09] MEDS: ZOLPIDEM 5 MG TAB PO PRN (22:13)
[2022-05-09 23:45] VITALS: RESP 16
[2022-05-10] MEDS: SODIUM CHLORIDE 0.9% 1,000 ML IV SCH ×2 (03:21→16:23)
[2022-05-10 03:47] VITALS: TEMP 97.8
[2022-05-10 08:28] LABS: African American GFR (CKD) >90 (>60 ml/min/1.73 sqM); Anion Gap 8 mmol/L; Blood Urea Nitrogen 10 mg/dL (9-20); Calcium 8.1 mg/dL (8.4-10.2); Carbon Dioxide 21 mmol/L (22-30); Chloride 102 mmol/L (98-107); Glucose 105 mg/dL (74-99); Non-African American GFR(CKD) >90 (>60 ml/min/1.73 sqM); Sodium 131 mmol/L (137-145)
[2022-05-10] MEDS: CARBIDOPA-LEVODOPA ER 50-200MG 1 EACH TABLET.ER PO SCH ×2 (09:15→12:39)
[2022-05-10] MEDS: ATORVASTATIN 10 MG TAB PO SCH (09:15)
[2022-05-10] MEDS: amLODIPine 5 MG TAB PO SCH (09:15)
[2022-05-10] MEDS: CLOPIDOGREL 75 MG TAB PO SCH (09:15)
[2022-05-10] MEDS: FAMOTIDINE 20 MG TAB PO SCH (09:15)
[2022-05-10] MEDS ORDERED: NA PHOS,M-B/NA PHOS,DI-BA 133 ML ENEMA RECTAL ONE (10:29)
[2022-05-10] MEDS: RIVAROXABAN 20 MG TAB PO SCH (16:23)
[2022-05-10 16:26] VITALS: BP 159/80; PULSE 73
--- NOTE | 2022-05-10 16:56 | P.DS ---
Providers Date of admission: 05/06/22 17:36 Expected date of discharge: 05/10/22 Attending physician: Yared Byrnes Primary care physician: Yared Byrnes Hospital Course: 81-year-old male patient of Dr. Manuel with past medical history of typical atrial flutter/atrial fibrillation, atrial tachycardia status post electrical cardioversion and recent ablation, hypertension, left bundle branch block. Patient has been having a number of issues with palpitations shortness breath over last few months. Most this was felt related to A. fib and eventually underwent A. fib ablation 05/04/22 which was uneventful. Patient was discharged home and then yesterday started feeling diaphoretic and somewhat short of breath and therefore presented to the ER. Initial troponin elevated at 4.7 and no repeat was performed. He denies any prior history of heart catheterization. Denies any current diaphoresis or shortness breath. Denies any chest pain. Has not recieved Xarelto yesterday EKG sinus rhythm with left bundle branch block Lexiscan stress test 2018 had fixed defect related to left bundle branch block, no reversible ischemia Echocardiogram 12/2021 revealed EF of 55%, intermediate diastolic dysfunction, moderate left ear H, ascending aortic measuring 3.8 cm, mild/moderate MR, RVSP 40 mmHg Cardioversion 08/2021 for atrial tachycardia Limited echocardiogram 05/01: Preserved LV systolic function. Asymmetrical septal hypertrophy. Normal pericardium. No significant valvular abnormalities. NSTEMI s/p PCI mid LAD CAD Vague symptoms of fatigue, dizziness shortness of breath possibly related to Afib History of A. fib/A flutter s/p ablation on Wednesday Hypertension Left bundle branch block Plan: Continue Xarelto and Plavix. No further angina type symptoms. Stable for DC home from a cardiology standpoint. If continues to have muscle aches, may consider holding Crestor. Plan - Discharge Summary Discharge Rx Participant: Yes New Discharge Prescriptions: New Clopidogrel [Plavix] 75 mg PO DAILY 30 Days #30 tab Continue Rosuvastatin Calcium 5 mg PO DAILY Lactulose 20 gm PO HS Carbidopa-Levodopa ER 50-200Mg [Sinemet CR 50-200 mg] 1 tab PO BID@0800,1300 amLODIPine [Norvasc] 5 mg PO DAILY 30 Days #30 tab Rivaroxaban [Xarelto] 20 mg PO W/SUPPER Discharge Medication List Rivaroxaban [Xarelto] 20 mg PO W/SUPPER 02/27/21 [History] Rosuvastatin Calcium 5 mg PO DAILY 04/24/22 [History] Carbidopa-Levodopa ER 50-200Mg [Sinemet CR 50-200 mg] 1 tab PO BID@0800,1300 04/30/22 [History] Lactulose 20 gm PO HS 04/30/22 [History] amLODIPine [Norvasc] 5 mg PO DAILY 30 Days #30 tab 05/05/22 [Rx] Clopidogrel [Plavix] 75 mg PO DAILY 30 Days #30 tab 05/10/22 [Rx] Follow up Appointment(s)/Referral(s): Yared Byrnes MD [Primary Care Provider] - 1-2 days Discharge Disposition: HOME SELF-CARE
--- NOTE | 2022-05-13 05:52 | CDI ---
Documentation Clarification Form Date: 05/13/22 From: Malika Steward Admit Date: 05/06/2022 5:36:00 PM Patient Name: Denton Mike Visit Number: [id number] Discharge Date: 05/10/2022 7:01:00 PM ATTENTION: The Clinical Documentation Specialists (CDI) and [facility] Coding Staff appreciate your assistance in clarifying documentation. Please respond to the clarification below the line at the bottom and electronically sign. The CDI & [facility] Coding staff will review the response and follow-up if needed. Please note: Queries are made part of the Legal Health Record. If you have any questions, please contact the author of this message via ITS. Dr. Joaquin Cardenas, Atrial Fibrillation is documented in the ED Note, H&P, your consult, progress notes and DS. Additional clarification regarding the type of atrial fibrillation is requested. History/Risk Factors: NSTEMI, CAD, hyponatremia, typical atrial flutter, Parkinsons disease, LBBB, HTN, peripheral neuropathy Clinical Indicators: Atrial fibrillation and typical atrial flutter, status post ablation on 05/04. EKG/telemetry: sinusrhythmwithleft bundle branch block Treatment: Xarelto 20 mg PO w supper Please clarify the type of atrial fibrillation, if known: [ ] Chronic [ ] Permanent [ X ] Paroxysmal [ ] Persistent [ ] Other, please specify [ ] Unable to determine MTDD
== END 2022-05-10 19:01 | disposition home or self-care (01) | DRG 247 ==
LOC: EC 14:05 → 3SCARD 17:36
PROVIDERS: ADMIT Family Medicine; ATTEND Family Medicine
PROC: 027034Z Dilation of Coronary Artery, One Artery with Drug-eluting Intraluminal Device, Percutaneous Approach (ICD-10-PCS; principal; 2022-05-08)
PROC: B2111ZZ Fluoroscopy of Multiple Coronary Arteries using Low Osmolar Contrast (ICD-10-PCS; principal; 2022-05-08)
PROC: 4A023N7 Measurement of Cardiac Sampling and Pressure, Left Heart, Percutaneous Approach (ICD-10-PCS; principal; 2022-05-08)
DX: I21.4 Non-ST elevation (NSTEMI) myocardial infarction (principal); E87.1 Hypo-osmolality and hyponatremia; I48.3 Typical atrial flutter; I48.0 Paroxysmal atrial fibrillation; G20 Parkinson's disease; Z20.822 Contact with and (suspected) exposure to COVID-19; I44.7 Left bundle-branch block, unspecified; I10 Essential (primary) hypertension; G62.9 Polyneuropathy, unspecified; M47.9 Spondylosis, unspecified; I25.10 Atherosclerotic heart disease of native coronary artery without angina pectoris; Z79.01 Long term (current) use of anticoagulants; Z79.899 Other long term (current) drug therapy; Z86.16 Personal history of COVID-19; Z82.49 Family history of ischemic heart disease and other diseases of the circulatory system
CPT/HCPCS: 36415; 71046; 80048; 80053; 81001; 83605; 83735; 83880; 84295; 84439; 84443; 84481; 84484; 85025; 85610; 85730; 87636; 93005; 93308; 93458; 94760; 96361; 96375; 99285

== ENCOUNTER → 2023-06-24 | Outpatient (CLI) | payer MEDICARE ==
--- NOTE | 2023-06-24 15:20 | US ---
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 Indirect Doppler criteria was utilized. FINDINGS: EXAM MEASUREMENTS: RIGHT: Peak Systolic Velocity (PSV) cm/sec ----- Right CCA: 86.2 ----- Right ICA: 70.1 ----- Right ECA: 90.0 ICA/CCA ratio: 0.8 RIGHT: End Diastole cm/sec ----- Right CCA: 7.2 ----- Right ICA: 12.7 ----- Right ECA: 0.0 LEFT: Peak Systolic Velocity (PSV) cm/sec ----- Left CCA: 90.0 ----- Left ICA: 87.9 ----- Left ECA: 84.7 ICA/CCA ratio: 1.0 LEFT: End Diastole cm/sec ----- Left CCA: 9.5 ----- Left ICA: 14.3 ----- Left ECA: 6.9 VERTEBRALS (direction of flow): Right Vertebral: Antegrade Left Vertebral: Antegrade Rhythm: Normal No significant stenosis IMPRESSION: 1. No hemodynamically significant stenosis bilaterally based on peak systolic velocities and ratios. 2. No significant plaque formation or stenosis based on color or grayscale imaging. Criteria for Assigning % of Stenosis / Diameter reduction (Estimation based on the indirect measurements of the internal carotid artery velocities (ICA PSV). 1. Normal (no stenosis)=ICA PSV < 125 cm/s: ratio < 2.0: ICA EDV<40 cm/s. 2. Less than 50% stenosis=ICA PSV < 125 cm/s: ratio < 2.0: ICA EDV<40 cm/s. 3. 50 to 69% stenosis=ICA PSV of 125 to 230 cm/s: ration 2.0 ? 4.0: ICA EDV 40-100 cm/s. 4. Greater than 70% stenosis to near occlusion= ICA PSV > 230 cm/s: ratio > 4.0: ICA EDV > 100 cm/s. 5. Near occlusion= ICA PSV velocities may be low or undetectable: variable ratio and ICA EDV. 6. Total occlusion=unable to detect flow.
== END | disposition home or self-care (01) ==
LOC: RADUSWWP 09:45
PROVIDERS: ATTEND Psychiatry & Neurology Neurology
DX: I66.9 Occlusion and stenosis of unspecified cerebral artery (principal); I95.1 Orthostatic hypotension
CPT/HCPCS: 93880